=== PATIENT | female | born 1940 | race African-American/Black ===

== ENCOUNTER 2016-11-08 15:16 | Inpatient (IN) ==
[2016-11-10] MEDS ORDERED: ONDANSETRON 4 MG/2 ML VIAL IV PRN (13:14)
[2016-11-10 14:53] LABS: Basophils % 0.3 % (0.0-0.8); Eosinophils # 0.1 10*3/uL (0.0-0.87); Eosinophils % 1.2 % (0.00-10.9); Hematocrit 27.4 VOL% (35.7-47.0); Hemoglobin 8.5 GM/DL (12.0-16.0); Immature Granulocytes % 0.7 %; Immature Granulocytes Absolute 0.08 #; Lymphocytes # 1.6 10*3/uL (1.4-4.0); Lymphocytes % 14.2 % (21.3-54.2); Mean Corpuscular Hemoglobin 24 PG (27-34); Mean Corpuscular Volume 77.6 FL (87-102); Mean Platelet Volume 8.2 FL (9.6-12.0); Monocytes # 0.7 10*3/uL (0.11-0.8); Monocytes % 5.8 % (1.7-12.7); Neutrophils # 8.8 10*3/uL (1.4-7.4); Neutrophils % 77.8 % (38.7-73.9); Platelet Count 450 T/CUMM (130-400); Red Blood Count 3.53 MC/CUMM (3.8-5.5); Red Cell Distribution Width 26.5 % (9.3-17.3); White Blood Count 11.4 T/CUMM (4-12)
--- NOTE | 2016-11-10 15:12 | Hospitalist Consult Note ---
Assessment and Plan - Time spent with patient Time spent with patient: Greater than 30 minutes (1) Bilateral lower extremity edema Status: Acute Assessment and plan: Ms. Swan is 75-year-old -[place]azi female with history of hypertension and breast cancer admitted with lymphedema and cellulitis of the right upper extremity and bilateral lower extremity wounds with edema. Hospital medicine has been consulted for medical management of this patient. Labs will be ordered and drawn and recommendations to follow. We will go ahead and restart her home medicines once they are entered into the system. Dr. Luis to see and examine patient Current Visit: Yes (2) Lymphedema of right arm Status: Acute Current Visit: Yes (3) Hypertension Status: Acute Current Visit: Yes (4) Peripheral vascular disease Status: Acute Current Visit: Yes (5) Open wound of both lower extremities with complication Status: Acute Current Visit: Yes History of Present Illness - Data of Consult Patient: new to practice Consult date: 11/10/16 Requesting Physician: Wisam Jerez Primary care physician: Radu Bush - Consult Narrative Reason for consult: medical management History of present illness: Ms. Swan is a 75 year old female with history of hypertension and breast cancer status post mastectomy in [address] Jerez with bilateral lower extremity wounds and edema, and right upper extremity cellulitis and edema. Patient states she saw Dr. Jerez in clinic on Sunday and he wanted to admit her that day. She states her grandson got lost and she decided to go home and come back on Sunday. She has been treated for the past 2 years for lower extremity wounds and edema by her primary care physician Dr. Bush and home health. She went briefly to a wound nurse in [facility] that used an Unna boot that she could not tolerate. She was then sent to see Dr. Jerez for evaluation. Patient states she had a mastectomy for breast cancer on the right side in 1988 and she is always had lymphedema but it has worsened in the last 2 weeks. She states it was red and painful but that seems to have improved today. She has also had right lower extremity stents done by Dr. Horner approximately 2 years ago. She had an extended hospital stay of about 2 months at [facility]. She denies any other health history. She states she has been having difficulty walking recently due to her swelling of her legs and generalized knee pain. Patient denies headache, chest pain, shortness of breath, abdominal pain, constipation or diarrhea. Hospital medicine has been consulted for medical management of this patient. CC: Wisam Jerez MD - Home Medications and Allergies Allergies/Adverse Reactions: Allergies Allergy/AdvReac Type Severity Reaction Status Date / Time Penicillins AdvReac Intermediate RASH Verified 11/10/16 14:48 povidone-iodine AdvReac Intermediate RASH Verified 11/10/16 14:48 [From Betadine] soap [From Betadine] AdvReac Intermediate RASH Verified 11/10/16 14:48 Medical,Surgical,& Family Hx - Medical History Cardio: History of: Hypertension Musculoskeletal: History of: Musculoskeletal Problems (Bilateral knee pain) Reproductive: History of: Breast Cancer - Surgical History Reproductive Surgeries: Surgical HX of;: Breast Surgery (Right mastectomy in 1988) - Family History Family History: Reports;: Family Heart Disease - Social History Smoking Status: Never smoker Frequency of Alcohol Use: None Type of Drug Use: None Marital Status: Lives With:: Spouse Functional capacity: independent ambulation Review of systems: A complete 10 system review of systems was obtained and pertinent positives and negatives per HPI Exam - Constitutional Exam: Constitutional System: No distress. No tremulousness. Head: Normocephalic, atraumatic. Ears, Nose and Throat System: No evidence of Otitis or Mastoiditis. No epistaxis or discharge Eyes System: Pupils equal, round, and reactive. Extraocular muscles intact. Neck: Supple, without adenopathy, No jugular venous distention. No thyromegaly, neck mass, or prior surgery apparent. Respiratory System: Chest clear to auscultation. Cardiovascular System: Heart with regular rate and rhythm. No murmur. GI System: Abdomen soft, nontender. Obese, Normo active bowel sounds present. Musculoskeletal System: limbs with 4+ pitting pedal edema. No distal pulses due to edema. Patient has lymphedema of the right arm with mild cellulitis throughout patient's legs are wrapped and dressings are clean and dry Neurological System: No discernable sensory deficit. No aphasia Psychiatric System: Conversation is rational Results - Labs CBC & BMP: 11/10/16 14:41 Labs: Labs are pending Quality Measures - VTE Contraindication to Mechanical VTE Prophylaxis: Vascular Ulceration
--- NOTE | 2016-11-10 15:46 | General Surg History&Physical ---
Assessment and Plan - Time spent with patient Time spent with patient: Greater than 30 minutes (1) Cellulitis of both lower extremities Status: Acute Assessment and plan: Bilateral lower extremity cellulitis. We have emerging cultures from her initial office visit on 11/08/2016, and these will be addressed. We will also begin meticulous local wound care, and have her placed on bedrest with compression wraps, as this is likely mixed arterial and venous disease. We will watch her closely for changes as well as signs of advancing infection until the final culture results are reported. 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 She has a component of mild cellulitis, which does appear to be improved slightly from her office visit of 11/08/2016. We will plan to continue antibiotics and consult OT for this on Sunday. I hesitate to apply any type of short stretch wraps to this, as I do not believe we have OT to guide us for this nor are we able to offer her any type of MLD over the weekend. I do not want to exacerbate her problem by inappropriately applied or under utilized wraps. We will just have her elevate the extremity on a pillow until OT can evaluate. Current Visit: Yes (3) Hypertension Status: Acute Assessment and plan: Hypertension by history. Hospitalists have been consulted, and her home meds will be restarted. Will defer to any interventions they deem necessary. Current Visit: Yes (4) Peripheral vascular disease Status: Acute Assessment and plan: Lower extremity with chronic venous stasis disease and history of prior stents placed by Dr. chun atkinson on the right lower extremity. We are unclear as to whether or not this was a venous arterial problem. We may want to look at lower arterial studies, however this will be difficult to ascertain due to her chronic venous ulcerations. We will watch closely for excessive ischemic changes and see if we are able to investigate this problem further should there be a need to determine whether this is arterial versus venous. Current Visit: Yes (5) Anemia of chronic disease Status: Acute Assessment and plan: She reportedly has received transfusions recently for an H&H of 5 and 16, based on records received from her home health agency at the time of her initial office visit. This appears to be anemia of chronic disease and she is on iron replacement therapy. We will repeat labs and obtain stools for occult blood. alth agency. Today her hematocrit is 27, so we will just watch her labs closely and transfuse as necessary. Current Visit: Yes History of Present Illness Chief complaint: Bilateral lower leg cellulitis, right upper extremity cellulitis/lymphangit History of present illness: Ms. Swan is a 75 year old female Home Medications Medication Instructions Recorded Confirmed Type Clindamycin Cap [Cleocin Cap] 300 mg PO QID 11/10/16 11/10/16 History Furosemide Tab [Lasix Tab] 40 mg PO DAILY 11/10/16 11/10/16 History HYDROcodone/ACETAMIN 10-325 [[place] 1 tablet PO BID PRN 11/10/16 11/10/16 History 10-325] Iron,Carbonyl/Ascorbic Acid 1 tablet PO DAILY 11/10/16 11/10/16 History [Icar-C Tablet] Meloxicam [Mobic] 15 mg PO DAILY 11/10/16 11/10/16 History Metoprolol Tartrate [Metoprolol 50 mg PO BID 11/10/16 11/10/16 History Tartrate] Potassium Chloride [Klor-Con M20] 20 meq PO DAILY 11/10/16 11/10/16 History Allergies Allergy/AdvReac Type Severity Reaction Status Date / Time Penicillins AdvReac Intermediate RASH Verified 11/10/16 14:48 povidone-iodine AdvReac Intermediate RASH Verified 11/10/16 14:48 [From Betadine] soap [From Betadine] AdvReac Intermediate RASH Verified 11/10/16 14:48 Medical,Surgical,& Family Hx - Medical History Cardio: History of: Hypertension Musculoskeletal: History of: Musculoskeletal Problems (Bilateral knee pain) Reproductive: History of: Breast Cancer Other: History of: Miscellaneous Medical Problems (lymphedema) - Surgical History Reproductive Surgeries: Surgical HX of;: Breast Surgery (Right mastectomy in 1988) - Family History Family History: Reports;: Family Heart Disease - Social History Smoking Status: Never smoker Frequency of Alcohol Use: None Type of Drug Use: None Exam - Constitutional Vitals: Period Temp Pulse Resp BP Sys/Castro Pulse Ox Last 24 Hr 98.2 F 73 18 118/67 99 General appearance: over weight - Head Head exam: Present: normocephalic - ENT Mouth exam: Present: normal voice, dry mucosa, other (Poor dentition). Absent: oral lesion - Neck Neck exam: Present: trachea midline. Absent: lymphadenopathy - Respiratory Respiratory exam: Present: clear to auscultation bilaterally - Cardiovascular Cardiovascular exam: Present: RRR - GI/Abdominal GI/Abdominal exam: Present: hypoactive bowel sounds, soft. Absent: distended, tenderness - Extremities Exam Extremities exam: Present: other (Right upper extremity with marked lymphedema and mild resolving erythema. No unusual induration. No focal fluctuance. It is not warm to touch on today's exam, however on Sunday it was slightly warm to touch. Bilateral lower extremities with 3+ pitting edema despite wrappings. Her legs are weeping copious amounts of yellowish discharge, despite being wrapped although somewhat suboptimally. She has circumferential superficial venous stasis ulcerations of both lower extremities. These are approximately 15 cm by the entire circumference of her legs. There is erythema adjacent to these areas without any ischemic change. All the ulcers are fairly superficial , with the deepest being approximately 4-5 mm. Right leg appears to be slightly more involved than the left. Calves are soft and compressible. I see no pressure areas. ) - Neurological Exam Neurological exam: Present: alert, oriented X3 Speech: Present: normal - Constitutional Constitutional: Present: weakness, other (Edema) Quality Measures - VTE Contraindication to Mechanical VTE Prophylaxis: Vascular Ulceration Results - Labs CBC & BMP: 11/10/16 14:41 Lab Results: I have reviewed the past 24 hour labs
[2016-11-10 16:00] LABS: Osmolality,Calculated 287.3 MOS/KG (273-304); Potassium 4.4 MMOL/L (3.5-5.1)
[2016-11-10] MEDS: SODIUM CHLORIDE 0.45% 1,000 ML IV SCH (17:46)
[2016-11-10] MEDS: POTASSIUM CHLORIDE 20 MEQ TABLET PO SCH (17:47)
[2016-11-10] MEDS: FUROSEMIDE 40 MG TABLET PO SCH (17:47)
[2016-11-10] MEDS: IRON (CARBONYL)/VIT C/B12/FA TABLET PO SCH (17:47)
[2016-11-10] MEDS: CEFTAROLINE 600 MG in SODIUM CHLORIDE 0.9% 100 ML IV SCH (17:47)
[2016-11-10] MEDS: MELOXICAM 7.5 MG TABLET PO SCH (17:47)
[2016-11-10] MEDS: METOPROLOL TARTRATE 50 MG TABLET PO SCH (20:51)
[2016-11-10] MEDS: ACETAMINOPHEN 325 MG TABLET PO PRN (21:12)
[2016-11-11] MEDS: CEFTAROLINE 600 MG in SODIUM CHLORIDE 0.9% 100 ML IV SCH ×2 (03:22→14:55)
[2016-11-11 05:35] LABS: % Iron Saturation 11.9 % (18-50)
[2016-11-11 05:44] LABS: Folate 2.9 NG/ML (5.4-24.0)
[2016-11-11] MEDS: POTASSIUM CHLORIDE 20 MEQ TABLET PO SCH (09:50)
[2016-11-11] MEDS: PANTOPRAZOLE 40 MG TABLET PO SCH (09:50)
[2016-11-11] MEDS: MELOXICAM 7.5 MG TABLET PO SCH (09:50)
[2016-11-11] MEDS: IRON (CARBONYL)/VIT C/B12/FA TABLET PO SCH (09:50)
[2016-11-11] MEDS: METOPROLOL TARTRATE 50 MG TABLET PO SCH ×2 (09:50→22:00)
[2016-11-11] MEDS: SODIUM CHLORIDE 0.45% 1,000 ML IV SCH ×2 (09:51→19:10)
[2016-11-11] MEDS: FUROSEMIDE 40 MG TABLET PO SCH (09:51)
[2016-11-11] MEDS ORDERED: IRON DEXTRAN 25 MG in SYRINGE 1 EACH IV ONE (10:06)
--- NOTE | 2016-11-11 10:10 | Hospitalist Progress Note ---
Assessment and Plan (1) Iron deficiency anemia Status: Acute Assessment and plan: The patient will have IV iron infusion. Will recheck CBC in several days. Current Visit: Yes Qualifiers: Iron deficiency anemia type: chronic blood loss Qualified Code(s): D50.0 - Iron deficiency anemia secondary to blood loss (chronic) (2) Lymphedema of right arm Status: Acute Current Visit: Yes (3) Open wound of both lower extremities with complication Status: Acute Current Visit: Yes Hospitalist: Subjective Interval history: The patient is resting quietly in bed. She is receiving IV antibiotic for cellulitis of the lower extremities and the extremities are receiving topical wound care. The patient is found to be iron deficient and anemic. Exam - Constitutional Vitals: Period Temp Pulse Resp BP Sys/Castro Pulse Ox Last 24 Hr 97.5 F-98.3 F 73-83 18-20 97-143/59-81 96-99 General appearance: no acute distress - Respiratory Respiratory exam: Present: clear to auscultation bilaterally - Cardiovascular Cardiovascular exam: Present: regular rate and rhythm - GI/Abdominal GI/Abdominal exam: Present: normal bowel sounds Results - Labs CBC & BMP: 11/10/16 14:41 11/10/16 13:19 Quality Measures - VTE Contraindication to Mechanical VTE Prophylaxis: Vascular Ulceration
--- NOTE | 2016-11-11 11:12 | General Surgery Progress Note ---
Assessment and Plan (1) Bilateral lower extremity edema Status: Acute Assessment and plan: Patient has cellulitis of both lower extremities that she was admitted for antibiotics. We will continue this treatment. I will look at her wounds tomorrow myself but today she was about to use the restroom we will does have the nurses change these after she gets back in bed. Current Visit: Yes Subjective Patient reports: Present: no new complaints, feels better, still having pain, tolerating a regular diet, afebrile Exam - Constitutional Vitals: Period Temp Pulse Resp BP Sys/Castro Pulse Ox Last 24 Hr 97.5 F-98.3 F 73-83 18-20 97-143/59-81 96-99 General appearance: no acute distress, over weight - Head Head exam: Present: normal inspection, normocephalic - Eye Eye exam: Present: EOMI Pupils: Present: GEOVANNI - ENT ENT exam: Present: normal exam Mouth exam: Present: normal external inspection, normal voice - Neck Neck exam: Present: normal inspection, trachea midline - Respiratory Respiratory exam: Present: clear to auscultation bilaterally. Absent: accessory muscle use, chest wall tenderness - Cardiovascular Cardiovascular exam: Present: RRR. Absent: systolic murmur, tachycardia - GI/Abdominal GI/Abdominal exam: Present: soft. Absent: tenderness, rebound - Extremities Exam Extremities exam: Present: other (Bilateral lower extremity dressings are in place. Patient was about to get up to the restroom and request that I do not changes these myself today. She will have it done later by nursing.) - Back Exam Back exam: Present: normal inspection - Neurological Exam Neurological exam: Present: alert, oriented X3 Speech: Present: normal - Skin Skin exam: Present: normal color, warm Results - Labs CBC & BMP: 11/10/16 14:41 11/10/16 13:19 Quality Measures - VTE Contraindication to Mechanical VTE Prophylaxis: Vascular Ulceration
[2016-11-11] MEDS ORDERED: SODIUM CHLORIDE 0.9% IV ONE (13:00)
[2016-11-11] MEDS ORDERED: IRON DEXTRAN IV ONE (13:00)
[2016-11-11] MEDS ORDERED: IRON DEXTRAN 1,500 MG in SODIUM CHLORIDE 0.9% 500 ML IV ONE (14:00)
[2016-11-11] MEDS: ACETAMINOPHEN 325 MG TABLET PO PRN (15:41)
[2016-11-12] MEDS: CEFTAROLINE 600 MG in SODIUM CHLORIDE 0.9% 100 ML IV SCH ×2 (03:15→16:44)
--- NOTE | 2016-11-12 09:02 | Event Note ---
No changes today. Patient is stable. Patient refused to allow me to look at her wounds until she had all the supplies she needs to readdress them and this was done while I was in surgery. Continue current care.
[2016-11-12] MEDS: MELOXICAM 7.5 MG TABLET PO SCH (09:37)
[2016-11-12] MEDS: FUROSEMIDE 40 MG TABLET PO SCH (09:38)
[2016-11-12] MEDS: POTASSIUM CHLORIDE 20 MEQ TABLET PO SCH (09:38)
[2016-11-12] MEDS: IRON (CARBONYL)/VIT C/B12/FA TABLET PO SCH (09:38)
[2016-11-12] MEDS: METOPROLOL TARTRATE 50 MG TABLET PO SCH ×2 (09:38→21:12)
[2016-11-12] MEDS: PANTOPRAZOLE 40 MG TABLET PO SCH (10:45)
--- NOTE | 2016-11-12 13:06 | Hospitalist Progress Note ---
Assessment and Plan (1) Iron deficiency anemia Status: Acute Assessment and plan: The patient had iron dextrose infusion yesterday and should see some improvement in her anemia in the next few days. No complications were identified. The patient will continue present care. Current Visit: Yes Qualifiers: Iron deficiency anemia type: chronic blood loss Qualified Code(s): D50.0 - Iron deficiency anemia secondary to blood loss (chronic) (2) Lymphedema of right arm Status: Acute Current Visit: Yes (3) Open wound of both lower extremities with complication Status: Acute Current Visit: Yes Hospitalist: Subjective Interval history: The patient continues with local wound care. The patient received IV iron infusion yesterday. The patient has no new complaints today. She denies shortness of breath, palpitations, or angina. Exam - Constitutional Vitals: Period Temp Pulse Resp BP Sys/Castro Pulse Ox Last 24 Hr 97.6 F-99.1 F 20-68 16-20 107-143/53-81 95-100 General appearance: no acute distress - Respiratory Respiratory exam: Present: clear to auscultation bilaterally - Cardiovascular Cardiovascular exam: Present: regular rate and rhythm - GI/Abdominal GI/Abdominal exam: Present: normal bowel sounds Results - Labs CBC & BMP: 11/10/16 14:41 11/10/16 13:19 Lab Results: I have reviewed the past 24 hour labs Quality Measures - VTE Contraindication to Mechanical VTE Prophylaxis: Vascular Ulceration
[2016-11-12] MEDS: SODIUM CHLORIDE 0.45% 1,000 ML IV SCH (13:52)
[2016-11-12] MEDS: HYDROmorphone 2 MG/1 ML VIAL IV PRN (16:43)
[2016-11-13] MEDS: CEFTAROLINE 600 MG in SODIUM CHLORIDE 0.9% 100 ML IV SCH ×2 (02:50→14:04)
[2016-11-13] MEDS: SODIUM CHLORIDE 0.45% 1,000 ML IV SCH ×2 (02:51→16:21)
[2016-11-13 03:27] LABS: Basophils % 0.2 % (0.0-0.8); Eosinophils # 0.2 10*3/uL (0.0-0.87); Eosinophils % 1.6 % (0.00-10.9); Hematocrit 24.9 VOL% (35.7-47.0); Hemoglobin 7.5 GM/DL (12.0-16.0); Immature Granulocytes % 0.5 %; Immature Granulocytes Absolute 0.05 #; Lymphocytes # 1.3 10*3/uL (1.4-4.0); Lymphocytes % 13.8 % (21.3-54.2); Mean Corpuscular HGB Conc 30.1 GM/DL (32-36); Mean Corpuscular Hemoglobin 24 PG (27-34); Mean Corpuscular Volume 80.8 FL (87-102); Mean Platelet Volume 8.6 FL (9.6-12.0); Monocytes # 0.8 10*3/uL (0.11-0.8); Monocytes % 7.9 % (1.7-12.7); Neutrophils # 7.3 10*3/uL (1.4-7.4); Platelet Count 389 T/CUMM (130-400); Red Blood Count 3.08 MC/CUMM (3.8-5.5); Red Cell Distribution Width 26.7 % (9.3-17.3); White Blood Count 9.6 T/CUMM (4-12)
[2016-11-13 03:28] LABS: PT Patient Result 10.7 SECS; Partial Thromboplastin Time 35.7 SECS (0-40)
[2016-11-13 03:30] LABS: Albumin 1.8 G/DL (3.4-5.0); Bilirubin,Total 0.5 MG/DL (0.2-1.0); Calcium 7.8 MG/DL (8.5-10.1); Osmolality,Calculated 280.4 MOS/KG (273-304); Potassium 4.9 MMOL/L (3.5-5.1); Total Protein 4.9 G/DL (6.4-8.3)
[2016-11-13 04:42] LABS: Lymphocytes 23 % (20-55); Myelocytes 1 %; Segmented Neutrophils 73 % (50-85); Total Cells Counted 100
[2016-11-13 04:43] LABS: Microcytosis 1+; Platelet Estimate Normal
[2016-11-13] MEDS: IRON (CARBONYL)/VIT C/B12/FA TABLET PO SCH (08:12)
[2016-11-13] MEDS: FUROSEMIDE 40 MG TABLET PO SCH ×2 (08:13→08:15)
[2016-11-13] MEDS: MELOXICAM 7.5 MG TABLET PO SCH (08:13)
[2016-11-13] MEDS: METOPROLOL TARTRATE 50 MG TABLET PO SCH ×2 (08:13→21:32)
[2016-11-13] MEDS: PANTOPRAZOLE 40 MG TABLET PO SCH (08:13)
[2016-11-13] MEDS: POTASSIUM CHLORIDE 20 MEQ TABLET PO SCH (08:13)
--- NOTE | 2016-11-13 10:32 | Hospitalist Progress Note ---
Assessment and Plan (1) Open wound of both lower extremities with complication Status: Acute Assessment and plan: Patient with bilateral open wound with underlying colonic edema of her lower extremities may be venous stasis. She is on antibiotic and has been afebrile no leukocytosis now white count improved from 11.4-9.6 today. Will defer the management to Dr. Jerez for the wound. Dressing change is planned today and will be seen by Dr. Jerez. Current Visit: Yes (2) Bilateral lower extremity edema Status: Chronic Assessment and plan: Chronic bilateral lower extremity edema reported she also has associated hypoalbuminemia I will check urine analysis. Also obtain echocardiogram Current Visit: Yes (3) Iron deficiency anemia Status: Acute Assessment and plan: Her hemoglobin hematocrit is worse today also noted folic acid deficiency patient is on iron and folic acid supplement. Will monitor hemoglobin hematocrit closely check a stool Hemoccult Current Visit: Yes (4) ALMA (acute kidney injury) Status: Acute Assessment and plan: Improvement in renal function noted Current Visit: Yes Hospitalist: Subjective Interval history: Ms. Swan is a 75 year old female with history of hypertension, anemia , peripheral vascular disease and breast cancer status post mastectomy in 1988 and chronic swelling of the right upper limb. She was admitted on 11/10/[address] Gatica for bilateral lower extremities wound and edema. She has edema in lower extremities for about 2 years. She has a drainage for a father both legs from the ulcers. Her legs are dressed at present. She also has a right upper extremity edema which has been worsening recently. She has been on antibiotics she has been afebrile. Her wound culture has reported gram-negative rods. We were consulted for medical management Exam - Constitutional Vitals: Period Temp Pulse Resp BP Sys/Castro Pulse Ox Last 24 Hr 97.4 F-99.0 F 57-72 16-18 115-132/58-73 96-99 General appearance: no acute distress - Respiratory Respiratory exam: Present: clear to auscultation bilaterally. Absent: rales, rhonchi - Cardiovascular Cardiovascular exam: Present: regular rate and rhythm. Absent: tachycardia - GI/Abdominal GI/Abdominal exam: Present: normal bowel sounds, soft. Absent: distended, tenderness - Extremities Exam Extremities exam: Present: edema (Bilateral lower extremities edema with weeping wound from dressing. Also has right upper extremities edema but no wound) Results - Labs CBC & BMP: 11/13/16 02:27 11/13/16 02:27 Lab Results: I have reviewed the past 24 hour labs Quality Measures - VTE Contraindication to Mechanical VTE Prophylaxis: Vascular Ulceration
--- NOTE | 2016-11-13 11:10 | General Surgery Progress Note ---
Assessment and Plan - Time spent with patient Time spent with patient: Greater than 30 minutes (1) Cellulitis of both lower extremities Status: Acute Assessment and plan: Bilateral lower extremity cellulitis. We have emerging cultures from her initial office visit on 11/08/2016, and these will be addressed. We will also begin meticulous local wound care, and have her placed on bedrest with compression wraps, as this is likely mixed arterial and venous disease. We will watch her closely for changes as well as signs of advancing infection until the final culture results are reported. 11/13/2016. Bilateral lower extremity cellulitis with superimposed chronic venous stasis ulcers. We have gram-negative organisms emerging on her most recent cultures. The patient is on Teflaro, and topical Silvadene. We are also using a wound care product with silver, which should also help us combat gram-negative organisms. She previously cultured pseudomonas and Serratia. The wounds are clinically improving, so we will continue this protocol until final culture results are available. 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 She has a component of mild cellulitis, which does appear to be improved slightly from her office visit of 11/08/2016. We will plan to continue antibiotics and consult OT for this on Sunday. I hesitate to apply any type of short stretch wraps to this, as I do not believe we have OT to guide us for this nor are we able to offer her any type of MLD over the weekend. I do not want to exacerbate her problem by inappropriately applied or under utilized wraps. We will just have her elevate the extremity on a pillow until OT can evaluate. 11/13/2016. Improving mild cellulitis of the right upper extremity in a patient with known postmastectomy lymphedema. Since this seems to be improving and she has historically worn a lymphedema sleeve, I will go ahead and ask OT to visit with her and see what their recommendations are. It does not sound like from her history she has ever received any type of MLD, so will see if they feel she is a candidate for this. Current Visit: Yes (3) Hypertension Status: Acute Assessment and plan: Hypertension by history. Hospitalists have been consulted, and her home meds will be restarted. Will defer to any interventions they deem necessary. Current Visit: Yes (4) Peripheral vascular disease Status: Acute Assessment and plan: Lower extremity with chronic venous stasis disease and history of prior stents placed by Dr. chun atkinson on the right lower extremity. We are unclear as to whether or not this was a venous arterial problem. We may want to look at lower arterial studies, however this will be difficult to ascertain due to her chronic venous ulcerations. We will watch closely for excessive ischemic changes and see if we are able to investigate this problem further should there be a need to determine whether this is arterial versus venous. 11/13/2016. No signs of any type of arterial compromise or ischemic progression. These wounds seem to be primarily stasis, so at this time will defer any type of arterial workup unless we see signs of ischemia. It would be nice to know the status of her stents, so will ask if we can get records from [facility] to try to ascertain what type of vascular stents were placed. Current Visit: Yes (5) Anemia of chronic disease Status: Acute Assessment and plan: She reportedly has received transfusions recently for an H&H of 5 and 16, based on records received from her home health agency at the time of her initial office visit. This appears to be anemia of chronic disease and she is on iron replacement therapy. We will repeat labs and obtain stools for occult blood. alth agency. Today her hematocrit is 27, so we will just watch her labs closely and transfuse as necessary. 11/13/2016. Anemia is stable. Hospital has been managing, and her iron has been restarted. Of note her stools have not been collected nor has she had a bowel movement since admission. We will go ahead and try to stimulate her bowels, and she may need to be considered for colonoscopy, given her history of breast cancer, although I suspect that she simply has sluggish bowels due to her iron replacement therapy. Current Visit: Yes Subjective Patient reports: Present: feels better, pain is less, tolerating a regular diet , other (Tolerating her dressing changes with less discomfort.) Exam - Constitutional Vitals: Period Temp Pulse Resp BP Sys/Castro Pulse Ox Last 24 Hr 97.4 F-99.0 F 57-72 16-18 115-132/58-73 96-99 General appearance: no acute distress, over weight - Respiratory Respiratory exam: Present: clear to auscultation bilaterally - GI/Abdominal GI/Abdominal exam: Present: hypoactive bowel sounds, soft, other (No bowel movement since admission.) - Anus/Rectum Anus/Rectum: other (Since she has had no bowel movement since admission, we have yet to collect her stools for occult blood. Her rectal exam was deferred at this point.) - Extremities Exam Extremities exam: Present: other (Bilateral lower extremities with much less edema. Her wounds look much less viable, and the drainage is far decreased from her initial exam on admission. There is no slough, no necrotic tissue, and there is increased epithelial islands with skin bridging present over both wounds, left more improved than right. There is no gross signs of clinical advancing cellulitis in either leg. Her calves are soft and compressible, nontender to touch, and there is no tenderness of the calves with palpation. She does have moderate knee joint tenderness bilaterally but no effusions noted. Right upper extremity with resolving erythema, and less pitting of the hand and forearm. This is consistent with her resolving lymphedema/cellulitis change of the right upper extremity in this patient with known postmastectomy lymphedema) Results - Labs CBC & BMP: 11/13/16 02:27 11/13/16 02:27 Lab Results: I have reviewed the past 24 hour labs (Labs noted; her hematocrit is borderline at 24.9 volumes percent. Hospitalist is following for us.) Quality Measures - VTE Contraindication to Mechanical VTE Prophylaxis: Vascular Ulceration
[2016-11-13] MEDS: ACETAMINOPHEN 325 MG TABLET PO PRN (14:06)
--- NOTE | 2016-11-13 19:16 | ECHO Report ---
Jennifer Swan Exam Date: 11/13/2016 14:44 Referring Physician: Technologist: Ashly Lantigua RDCS Age: 75 Ht (in): 67 Wt (lb): 208 Gender: F Exam Location: [facility] Echo Indications: Essential (primary) hypertension, Peripheral vascular disease, unspecified, Bilat. open wound lower ext, Bilat. lower ext edema, iron deficient anemia, breast cancer BP: 109 / 52 HR: 70 Rhythm: Sinus Technical Quality: Fair IMPRESSIONS Normal LV systolic and diastolic function, ejection fraction 60%. Biatrial enlargement. Trace aortic regurgitation. Mild pulmonary regurgitation. Mild to moderate tricuspid regurgitation. Pulmonary hypertension with pulmonary artery pressure estimated at 65 mmHg. MEASUREMENTS (Male / Female) Normal Values 2D ECHO LV Diastolic Diameter PLAX 5.0 cm 4.2 - 5.9 / 3.9 - 5.3 cm LV Systolic Diameter PLAX 3.2 cm LV Fractional Shortening PLAX 36.5 % IVS Diastolic Thickness 0.8 cm 0.6 - 1.0 / 0.6 - 0.9 cm LVPW Diastolic Thickness 0.8 cm 0.6 - 1.0 / 0.6 - 0.9 cm DOPPLER TR Peak Velocity 370.0 cm/s TR Peak Gradient 54.8 mmHg FINDINGS Left Ventricle Normal left ventricular cavity size. Normal left ventricular cavity size. Left ventricular ejection fraction is estimated at 60 %. Right Ventricle The right ventricle is normal in size and function. Right Atrium Grossly mildly increased right atrial size. Left Atrium Grossly moderately increased left atrial size. Mitral Valve Thickened mitral valve. Trace mitral valve regurgitation. Aortic Valve Aortic valve sclerosis without stenosis. Trace aortic valve regurgitation. Tricuspid Valve Morphologically normal tricuspid valve. Moderate tricuspid valve regurgitation. Tricuspid regurgitation velocities suggest a PAP of 65 mmHg. Pulmonic Valve Morphologically normal pulmonic valve. Mild pulmonary valve regurgitation. Pericardium Normal pericardium without effusion. Aorta Normal ascending aorta dimension. Mayra Sotomayor MD (Electronically Signed) Final Date: 13 Nov 2016 19:15
[2016-11-13] MEDS: DOCUSATE SODIUM 100 MG CAPSULE PO SCH (21:32)
[2016-11-14] MEDS: CEFTAROLINE 600 MG in SODIUM CHLORIDE 0.9% 100 ML IV SCH ×2 (02:08→14:12)
[2016-11-14 04:44] LABS: Basophils % 0.4 % (0.0-0.8); Eosinophils # 0.2 10*3/uL (0.0-0.87); Hematocrit 26.3 VOL% (35.7-47.0); Hemoglobin 7.7 GM/DL (12.0-16.0); Immature Granulocytes % 0.5 %; Immature Granulocytes Absolute 0.03 #; Lymphocytes # 1.4 10*3/uL (1.4-4.0); Lymphocytes % 24.2 % (21.3-54.2); Mean Corpuscular HGB Conc 29.3 GM/DL (32-36); Mean Corpuscular Hemoglobin 25 PG (27-34); Mean Corpuscular Volume 83.8 FL (87-102); Mean Platelet Volume 8.8 FL (9.6-12.0); Monocytes # 0.7 10*3/uL (0.11-0.8); Monocytes % 12.6 % (1.7-12.7); Neutrophils # 3.4 10*3/uL (1.4-7.4); Neutrophils % 59.3 % (38.7-73.9); Platelet Count 390 T/CUMM (130-400); Red Blood Count 3.14 MC/CUMM (3.8-5.5); Red Cell Distribution Width 27.3 % (9.3-17.3); White Blood Count 5.7 T/CUMM (4-12)
[2016-11-14 05:20] LABS: Hypochromasia 1+; Microcytosis Slight; Ovalocytes Slight; Platelet Estimate Adequate
[2016-11-14] MEDS: SODIUM CHLORIDE 0.45% 1,000 ML IV SCH (07:36)
[2016-11-14] MEDS: MELOXICAM 7.5 MG TABLET PO SCH (08:20)
[2016-11-14] MEDS: IRON (CARBONYL)/VIT C/B12/FA TABLET PO SCH (08:20)
[2016-11-14] MEDS: PANTOPRAZOLE 40 MG TABLET PO SCH (08:20)
[2016-11-14] MEDS: POTASSIUM CHLORIDE 20 MEQ TABLET PO SCH (08:21)
[2016-11-14] MEDS: FUROSEMIDE 40 MG TABLET PO SCH (08:21)
[2016-11-14] MEDS: METOPROLOL TARTRATE 50 MG TABLET PO SCH ×2 (08:21→20:29)
--- NOTE | 2016-11-14 12:53 | Hospitalist Progress Note ---
Assessment and Plan (1) Open wound of both lower extremities with complication Status: Acute Assessment and plan: Patient with bilateral open wound with underlying chronic c edema of her lower extremities may be venous stasis. She is on antibiotic and has been afebrile. WBC count improving. Will defer the management to Dr. Jerez for the wound. Dressing change is planned today and will be seen by Dr. Jerez. Current Visit: Yes (2) Bilateral lower extremity edema Status: Chronic Assessment and plan: Chronic bilateral lower extremity edema reported she also has associated hypoalbuminemia . I had ordered a urine analysis but it was not done yet I will order it again. And get urine protein and creatinine ratio. LFT in the morning to follow-up on liver function tests as well as albumin level. Echocardiogram did shows elevated pulmonary artery pressure. This could have been contributing to both bilateral lower extremities edema Current Visit: Yes (3) Pulmonary hypertension Status: Acute Assessment and plan: Pulmonary hypertension on echocardiogram. Although patient has high BMI and at risk for obstructive sleep apnea. I did screening questions and were negative for sleep apnea symptoms. She may still need sleep studies as outpatient consult card to assist with management Current Visit: Yes (4) Iron deficiency anemia Status: Acute Assessment and plan: We will keep monitoring repeat labs for tomorrow ordered Current Visit: Yes (5) ALMA (acute kidney injury) Status: Acute Assessment and plan: Improvement in renal function noted based on the studies from yesterday. Repeat labs ordered for tomorrow morning Current Visit: Yes Hospitalist: Subjective Interval history: Ms. Swan is a 75 year old female with history of hypertension, anemia , peripheral vascular disease and breast cancer status post mastectomy in 1988 and chronic swelling of the right upper limb. She was admitted on 11/10/[address] Jerez for bilateral lower extremities wound and edema. She has edema in lower extremities for about 2 years. She has a drainage for a father both legs from the ulcers. She also has a right upper extremity edema which has been worsening recently. She has been on antibiotics she has been afebrile. Her wound culture has reported gram-negative rods. We were consulted for medical management. Wound dressing was changed yesterday and and reported improvement from the past Exam - Constitutional Vitals: Period Temp Pulse Resp BP Sys/Castro Pulse Ox Last 24 Hr 97.1 F-99.4 F 63-75 18-18 103-131/47-60 95-100 General appearance: no acute distress. Alert and oriented - Respiratory Respiratory exam: Present: clear to auscultation bilaterally. Absent: rales, rhonchi - Cardiovascular Cardiovascular exam: Present: regular rate and rhythm. Absent: tachycardia - GI/Abdominal GI/Abdominal exam: Present: normal bowel sounds, soft. Absent: distended, tenderness - Extremities Exam Extremities exam: Present: edema (Bilateral lower extremities edema with weeping wound from dressing. Also has right upper extremities edema but no wound I was able to see the wound when the dressing was changed yesterday and seem to have some healing with granulation tissue. ) Results - Labs CBC & BMP: 11/14/16 04:03 11/13/16 02:27 Lab Results: I have reviewed the past 24 hour labs Quality Measures - VTE Contraindication to Mechanical VTE Prophylaxis: Vascular Ulceration
--- NOTE | 2016-11-14 13:17 | General Surgery Progress Note ---
Assessment and Plan (1) Cellulitis of both lower extremities Status: Acute Assessment and plan: Bilateral lower extremity cellulitis. We have emerging cultures from her initial office visit on 11/08/2016, and these will be addressed. We will also begin meticulous local wound care, and have her placed on bedrest with compression wraps, as this is likely mixed arterial and venous disease. We will watch her closely for changes as well as signs of advancing infection until the final culture results are reported. 11/13/2016. Bilateral lower extremity cellulitis with superimposed chronic venous stasis ulcers. We have gram-negative organisms emerging on her most recent cultures. The patient is on Teflaro, and topical Silvadene. We are also using a wound care product with silver, which should also help us combat gram-negative organisms. She previously cultured pseudomonas and Serratia. The wounds are clinically improving, so we will continue this protocol until final culture results are available. 11/14/16. Lower extremity wounds continue to improve. We are now looking at how we can manage her lower extremity wounds as outpatient, as she definitely will need support and daily dressing changes for the next month. 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 She has a component of mild cellulitis, which does appear to be improved slightly from her office visit of 11/08/2016. We will plan to continue antibiotics and consult OT for this on Sunday. I hesitate to apply any type of short stretch wraps to this, as I do not believe we have OT to guide us for this nor are we able to offer her any type of MLD over the weekend. I do not want to exacerbate her problem by inappropriately applied or under utilized wraps. We will just have her elevate the extremity on a pillow until OT can evaluate. 11/13/2016. Improving mild cellulitis of the right upper extremity in a patient with known postmastectomy lymphedema. Since this seems to be improving and she has historically worn a lymphedema sleeve, I will go ahead and ask OT to visit with her and see what their recommendations are. It does not sound like from her history she has ever received any type of MLD, so will see if they feel she is a candidate for this. Current Visit: Yes (3) Hypertension Status: Acute Assessment and plan: Hypertension by history. Hospitalists have been consulted, and her home meds will be restarted. Will defer to any interventions they deem necessary. Current Visit: Yes (4) Peripheral vascular disease Status: Acute Assessment and plan: Lower extremity with chronic venous stasis disease and history of prior stents placed by Dr. chun atkinson on the right lower extremity. We are unclear as to whether or not this was a venous arterial problem. We may want to look at lower arterial studies, however this will be difficult to ascertain due to her chronic venous ulcerations. We will watch closely for excessive ischemic changes and see if we are able to investigate this problem further should there be a need to determine whether this is arterial versus venous. 11/13/2016. No signs of any type of arterial compromise or ischemic progression. These wounds seem to be primarily stasis, so at this time will defer any type of arterial workup unless we see signs of ischemia. It would be nice to know the status of her stents, so will ask if we can get records from [facility] to try to ascertain what type of vascular stents were placed. Current Visit: Yes (5) Anemia of chronic disease Status: Acute Assessment and plan: She reportedly has received transfusions recently for an H&H of 5 and 16, based on records received from her home health agency at the time of her initial office visit. This appears to be anemia of chronic disease and she is on iron replacement therapy. We will repeat labs and obtain stools for occult blood. alth agency. Today her hematocrit is 27, so we will just watch her labs closely and transfuse as necessary. 11/13/2016. Anemia is stable. Hospital has been managing, and her iron has been restarted. Of note her stools have not been collected nor has she had a bowel movement since admission. We will go ahead and try to stimulate her bowels, and she may need to be considered for colonoscopy, given her history of breast cancer, although I suspect that she simply has sluggish bowels due to her iron replacement therapy. Current Visit: Yes Subjective Patient reports: Present: no new complaints, pain is less, bowel movement (Says she had stool last night in the toilet but couldn't collect specimen for OCB for various reasons. She denies seeing gross blood. ) Exam - Constitutional Vitals: Period Temp Pulse Resp BP Sys/Castro Pulse Ox Last 24 Hr 97.1 F-99.4 F 63-75 18-18 103-131/47-60 95-100 General appearance: no acute distress - Respiratory Respiratory exam: Present: clear to auscultation bilaterally - Cardiovascular Cardiovascular exam: Present: RRR - GI/Abdominal GI/Abdominal exam: Present: hypoactive bowel sounds, soft - Extremities Exam Extremities exam: Present: other (Lower leg wounds essentially the same; they are definintely less inflammed and have much less edema and drainage from admission. Right upper extremity has no erythema and no tenderness. ) Results - Labs CBC & BMP: 11/14/16 04:03 11/13/16 02:27 Lab Results: I have reviewed the past 24 hour labs (Hct stable at 26) Quality Measures - VTE Contraindication to Mechanical VTE Prophylaxis: Vascular Ulceration
[2016-11-14 15:30] LABS: Apearance,Urine Slightly Hazy (Clear); Bacteria,Urine Occasional /HPF (Few); Bilirubin,Urine Negative (Negative); Blood, Urine Negative (Negative); Glucose,Urine (UA) Negative (Negative); Hyaline Casts,Urine 3 /LPF (0-3); Ketones,Urine Negative (Negative); Mucus,Urine Occasional /LPF (Occasional); Nitrite,Urine Negative (Negative); Protein,Urine Negative; Squamous Epithelial Cell,Urine Occasional /HPF (0-10); Urine Color Yellow (Yellow); Urine Specific Gravity 1.018 (1.001-1.035); Urine Urobilinogen < 2.0 EU/DL (0.2-1.0); WBC,Urine 1 /HPF (0-6)
[2016-11-14] MEDS: DOCUSATE SODIUM 100 MG CAPSULE PO SCH (20:28)
--- NOTE | 2016-11-14 21:58 | Cardiology Consult Note ---
I, Devi Arvizu RN, am scribing for, and in the presence of, Mayra Sotomayor MD 21:56. Assessment and Plan - Time spent with patient Time spent with patient: Greater than 30 minutes (Due to assessment, planning, documentation, medication review) (1) Pulmonary hypertension Status: Acute Assessment and plan: The chronicity of this is not known. She does not have any significant valvular heart disease seen on echocardiogram, and does not have uncontrolled hypertension. She does not appear to have a cardiac source of her pulmonary hypertension. I would recommend consulting pulmonology which I will do for further evaluation of this. Current Visit: Yes (2) Cellulitis of both lower extremities Status: Acute Current Visit: Yes (3) Lymphedema of right arm Status: Acute Current Visit: Yes History of Present Illness - Data of Consult Patient: new to practice Consult date: 11/14/16 Requesting Physician: Clark Muniz Primary care physician: Radu Bush - Consult Narrative Reason for consult: Pulmonary HTN History of present illness: Mill Order Scheduler: Dr. Sotomayor, new to cardiology Primary MD: Dr. Bush Ms. Swan is a 75 year old female who who is a poor historian and has never been seen by a special agent in charge. She has a history of hypertension, breast cancer, and lymphedema. Surgical history includes right mastectomy in 1988. Family history is positive for father with MA and mother with hypertension. She is a lifetime non-smoker. She lives at home with her who she cares for and uses a cane for assistance to get around. Ms. Swan was admitted November 10 with bilateral lower extremity wounds and edema as well as right upper extremity cellulitis and edema. She tells me she has had these issues ongoing for about 2 years but they recently got worse. Her bilateral lower extremities are dressed. Dr. Jerez is following. Echocardiogram done November 11 of this year with ejection fraction of 60% and pulmonary hypertension with pulmonary artery pressure estimated at 65 mmHg. Cardiology has been asked to evaluate. She denies any chest pain at rest or on exertion. She reports having chronic stable dyspnea on exertion as well as two- pillow orthopnea which has also been chronic for her, denies any shortness of breath at rest. She does not experience any exertional chest discomfort and has not had a recent change in her exercise tolerance. She denies any history of asthma or COPD, no known pulmonary disease and did not receive any chest radiation with her breast cancer treatment. She does not have any symptoms of snoring, daytime somnolence and breath holding at night. She denies having any palpitations or dizziness. She does tell me that she has been weak and fatigued for a while now. She does not think she has ever had an echocardiogram previously. She routinely takes metoprolol tartrate 50 mg p.o. twice daily at home, she tells me she takes for her blood pressure. We will get an EKG. We will order venous ultrasound of bilateral lower extremities and right upper extremity because of edema and recent diagnosis of pulmonary hypertension. CC: Wisam Jerez MD - Home Medications and Allergies Home Medications: Home Medications Medication Instructions Recorded Confirmed Type Clindamycin Cap [Cleocin Cap] 300 mg PO QID 11/10/16 11/10/16 History Furosemide Tab [Lasix Tab] 40 mg PO DAILY 11/10/16 11/10/16 History HYDROcodone/ACETAMIN 10-325 [[place] 1 tablet PO BID PRN 11/10/16 11/10/16 History 10-325] Iron,Carbonyl/Ascorbic Acid 1 tablet PO DAILY 11/10/16 11/10/16 History [Icar-C Tablet] Meloxicam [Mobic] 15 mg PO DAILY 11/10/16 11/10/16 History Metoprolol Tartrate [Metoprolol 50 mg PO BID 11/10/16 11/10/16 History Tartrate] Potassium Chloride [Klor-Con M20] 20 meq PO DAILY 11/10/16 11/10/16 History Allergies/Adverse Reactions: Allergies Allergy/AdvReac Type Severity Reaction Status Date / Time Penicillins AdvReac Intermediate RASH Verified 11/10/16 14:48 povidone-iodine AdvReac Intermediate RASH Verified 11/10/16 14:48 [From Betadine] soap [From Betadine] AdvReac Intermediate RASH Verified 11/10/16 14:48 - Constitutional Constitutional: Present: as per HPI - EENT Eyes: Present: loss of vision, requires corrective lense Ears: Absent: decreased hearing, ear pain, tinnitus Nose, mouth and throat: Present: neck pain. Absent: dysphagia, epistaxis, headache(s) - Cardiovascular Cardiovascular: Present: dyspnea on exertion, edema, orthopnea (2 pillow). Absent: chest pain at rest, chest pain with activity, diaphoresis, dyspnea, radiating jaw, neck or arm pain, lightheadedness, palpitations - Respiratory Respiratory: Present: dyspnea on exertion. Absent: cough, dyspnea, hemoptysis, wheezing - Gastrointestinal Gastrointestinal: Present: nausea, vomiting. Absent: abdominal pain, constipation, diarrhea, hematemesis, hematochezia, melena - Genitourinary Genitourinary: Absent: dysuria, hematuria - Musculoskeletal Musculoskeletal: Present: back pain, joint swelling, limited range of motion, muscle weakness - Neurological Neurological: Present: abnormal gait. Absent: frequent falls, headache(s), syncope - Psychiatric Psychiatric: Absent: anxiety, confusion - Endocrine Endocrine: Present: fatigue. Absent: cold intolerance, heat intolerance - Hematologic/Lymphatic Hematologic/Lymphatic: Present: easy bleeding, easy bruising Medical,Surgical,& Family Hx - Medical History Cardio: History of: Hypertension Musculoskeletal: History of: Musculoskeletal Problems (Bilateral knee pain) Reproductive: History of: Breast Cancer Other: History of: Miscellaneous Medical Problems (lymphedema) - Surgical History Reproductive Surgeries: Surgical HX of;: Breast Surgery (Right mastectomy in 1988) Additional Surgical History: She reports she had 3 stents placed in right leg at [facility] 2 years ago - Family History Family History: Reports;: Family Heart Disease (Father), Family Hypertension ( Mother) - Social History Smoking Status: Never smoker Have you smoked in the last 12 months: No Frequency of Alcohol Use: None Type of Drug Use: None Marital Status: Lives With:: Spouse Functional capacity: uses cane/walker Physical Examination Vital Signs Temp Pulse Resp BP Pulse Ox 98.2 F 73 18 118/67 99 11/10/16 14:30 11/10/16 14:30 11/10/16 14:30 11/10/16 14:30 11/10/16 14:30 General: Present: Appears Well, No Apparent Distress HEENT: Present: PERRL, Mucus Membranes Moist Neck: Present: Supple Neck, Midline Trachea, No Bruit Cardiac: Present: Reg Rate and Rhythm, No Murmur Lungs: Present: Normal Breath Sounds, No Wheeze, Rales, Rhonchi. Absent: Oxygen Neuro: Present: Grossly Intact. Absent: Resting Tremor, Essential Tremor Abdomen: Present: Soft, Active Bowel Sounds, Non-Tender. Absent: Distended Skin: Present: Other (Dressings to bilateral lower extremities). Absent: Clear , Rash, Suspicious Lesions Musculoskeletal: Present: Decreased Range of Motion, Pain in Joint Gait: Present: Poor Gait Extremities: Present: Normal Upper Extr. Pulses, Edema (Right upper extremity lymphedema, she reports she has a "rash" to bilateral lower extremities, lower extremities are dressed so I did not assess), +2 Edema, Other (Severe lymphedema of the right upper extremity). Absent: Normal Gait Result/EKG - Labs CBC & BMP: 11/14/16 04:03 11/13/16 02:27 Lab Results: I have reviewed the past 24 hour labs Labs: Laboratory Results - last 24 hr 11/14/16 11/14/16 04:03 Unknown WBC 5.7 D RBC 3.14 L Hgb 7.7 L Hct 26.3 L MCV 83.8 L MCH 25 L MCHC 29.3 L RDW 27.3 H Plt Count 390 MPV 8.8 L Neut % (Auto) 59.3 Lymph % (Auto) 24.2 Weld % (Auto) 12.6 Eos % (Auto) 3.0 Baso % (Auto) 0.4 Neut # (Auto) 3.4 Lymph # (Auto) 1.4 Weld # (Auto) 0.7 Eos # (Auto) 0.2 Baso # (Auto) 0.0 Immature Gran % 0.5 Nucleated RBC % 0.0 Immature Gran # 0.03 Nucleated RBCs # 0.00 Platelet Estimate Adequate Hypochromasia 1+ Microcytosis Slight Ovalocytes Slight Morphology Comment Urine Color Yellow Urine Appearance Slightly hazy Urine pH 5.0 Ur Specific [place] 1.018 Urine Protein Negative Urine Glucose (UA) Negative Urine Ketones Negative Urine Blood Negative Urine Nitrate Negative Urine Bilirubin Negative Urine Urobilinogen < 2.0 H Urine Leukocytes Negative Urine WBC 1 Ur Squamous Epith Cells Occasional Urine Bacteria Occasional Hyaline Casts 3 Urine Mucus Occasional Ur Culture Indicated? Not indicated Quality Measures - VTE Contraindication to Mechanical VTE Prophylaxis: Vascular Ulceration Bran Lujan Jennifer, MD, personally performed the services described in this documentation, ascribed by Devi Arvizu RN in my presence, and it is both accurate and complete .
--- NOTE | 2016-11-14 22:51 | Ultrasound Report ---
US venous doppler LE BI Indication: Lower extremity swelling and pain. Comparison: None. Technique: Using a transcutaneous probe, grayscale, spectral Doppler, and color Doppler images of the bilateral lower extremity venous structures were captured and stored. Grayscale images prior to and following compression were obtained. Interrogated venous structures include the bilateral common femoral vein, superficial femoral vein (proximal, mid, and distal), and popliteal vein. Findings: There is no evidence of thrombus within the interrogated venous structures. The patent interrogated venous segments demonstrate presence of both color flow and spectral flow. Impression: 1. No evidence of venous thrombosis. 11/14/2016 10:22 PM PROCEDURE INTERPRETED AT [facility] DEPARTMENT OF RADIOLOGY Final Report Signed by: Dr. John Cohn
[2016-11-15] MEDS: CEFTAROLINE 600 MG in SODIUM CHLORIDE 0.9% 100 ML IV SCH ×2 (02:06→19:13)
[2016-11-15 06:07] LABS: Basophils % 0.7 % (0.0-0.8); Eosinophils # 0.2 10*3/uL (0.0-0.87); Eosinophils % 4.3 % (0.00-10.9); Hematocrit 23.7 VOL% (35.7-47.0); Hemoglobin 7.2 GM/DL (12.0-16.0); Immature Granulocytes % 0.2 %; Immature Granulocytes Absolute 0.01 #; Lymphocytes # 1.3 10*3/uL (1.4-4.0); Lymphocytes % 29.5 % (21.3-54.2); Mean Corpuscular HGB Conc 30.4 GM/DL (32-36); Mean Corpuscular Hemoglobin 24 PG (27-34); Mean Corpuscular Volume 80.1 FL (87-102); Mean Platelet Volume 8.3 FL (9.6-12.0); Monocytes # 0.6 10*3/uL (0.11-0.8); Monocytes % 14.2 % (1.7-12.7); Neutrophils # 2.3 10*3/uL (1.4-7.4); Neutrophils % 51.1 % (38.7-73.9); Platelet Count 346 T/CUMM (130-400); Red Blood Count 2.96 MC/CUMM (3.8-5.5); Red Cell Distribution Width 27.2 % (9.3-17.3); White Blood Count 4.4 T/CUMM (4-12)
[2016-11-15 06:30] LABS: Eosinophils 3 % (0-10); Hypochromasia 1+; Lymphocytes 33 % (20-55); Microcytosis 1+; Segmented Neutrophils 54 % (50-85); Total Cells Counted 100
[2016-11-15 06:31] LABS: Platelet Estimate Normal
--- NOTE | 2016-11-15 06:35 | XRay Report ---
Exam: Chest 2 views Date: November 14, 2016 Comparison: None Reason: Shortness of breath, pulmonary hypertension Findings: The cardiac silhouette is mildly enlarged, and the thoracic aorta is tortuous. The patient's arms partially obscure the chest on the lateral view. There is minimal density at the right lung base on the PA view. This could represent artifact from overlapping structures, atelectasis or possibly mild pneumonia. Follow-up would be helpful. No pneumothorax or pleural fluid is identified. There is degenerative change at the thoracic spine, but no acute osseous process is seen. Impression: 1. Mild cardiomegaly. 2. There is mild density at the right lung base. This could represent artifact, atelectasis or possibly mild pneumonia. Follow-up would be helpful to confirm resolution. PROCEDURE INTERPRETED AT [facility] DEPARTMENT OF RADIOLOGY Final Report Signed by: Dr. Jose Juan Sutherland
[2016-11-15 06:49] LABS: Albumin 1.9 G/DL (3.4-5.0); Bilirubin,Direct 0.1 MG/DL (0.0-0.20); Bilirubin,Indirect 0.4 MG/DL (0.0-1.0); Bilirubin,Total 0.5 MG/DL (0.2-1.0); Calcium 8.1 MG/DL (8.5-10.1); Osmolality,Calculated 283.1 MOS/KG (273-304); Potassium 5.3 MMOL/L (3.5-5.1); Total Protein 4.7 G/DL (6.4-8.3)
--- NOTE | 2016-11-15 08:09 | EKG Report ---
Stationary ECG Study [facility] Test Date: 11/14/2016 6:05:30 PM Pat Name: MARTIN BERNSTEIN Department: Room: 331 Gender: F Slaughterer Religious Ritual: MIRIAM : 1940 Requested by: Delaney Mcmanus Order Number: [id number] Reading MD: FRANCES LASSITER Intervals [place] Rate: 72 P: 55 NH: 164 QRS: 46 QRSD: 70 T: 48 QT: 367 QTc: 392 Interpretive Statements SINUS RHYTHM Electronically Signed On 11-15-16 21:11:55 CDT by FRANCES LASSITER [email or web address]
--- NOTE | 2016-11-15 09:58 | Pulmonology Consult Note ---
History of Present Illness Chief complaint: Pulmonary hypertension. History of present illness: Ms. Sawn is a 75 year old black female whom I been asked to see in pulmonary consultation for evaluation and treatment of pulmonary hypertension. Earlier the patient gave Dr. Mayra Sotomayor a history of orthopnea PND dyspnea on exertion. I interviewed her along with Blaze Pham nurse practitioner and the patient has complete denial of any pulmonary symptoms. She did admit she walks too far she gets short of breath. She denies any chest pain. She denies any sleep abnormalities. She was very defensive with answers all these questions so I am not 100% sure if she is telling me everything. Patient says that her feet have always been. She wears tried exercise 12 shoes. She has good bit of edema in her legs and she says her legs have always been sinus. She has massive edema in the right upper extremity and she blames this to be secondary to laying in bed. She says that she manages to keep the edema down at home. I asked her that she been up in a chair in the room and she said no. She denies any abdominal distention or feeling of fullness. She has had no change in her appetite. The remainder the review of systems is negative. Allergies. See below Home medicines see below Hospital medicines. See below. Past history. Iron deficiency. She remains low on iron she is been found to be low folic acid. High blood pressure. Degenerative joint disease. Obesity. Chronic recurrent lower extremity skin infections. History of lymphedema. Right mastectomy 1988 for breast cancer. In 2014 she had 3 stents placed in the right leg. This was done at [facility]. Family history. Father had heart disease and mother had high blood pressure. Social history. Patient denies ever having used alcohol or tobacco. She is and lives with her spouse. Echocardiogram. 11/11/2016. Left ventricular ejection fraction is 60%. Bilateral atrial enlargement. Mild pulmonary valve regurgitation. Mild to moderate tricuspid regurgitation. Pulmonary artery pressures were estimated to be 65 mmHg. The right ventricle is normal in size and function. Right atrium was mildly increased in size and the left atrium was moderately increased in size. There is a trace of mitral valve regurgitation trace of aortic valve regurgitation. Doppler venograms of the lower extremities. 11/14/2016. No evidence of deep venous thrombophlebitis Chest x-ray. My interpretation. Normal heart size. No hilar adenopathy. The origin of the right pulmonary artery appears to be enlarged but this ends suddenly. Left pulmonary artery is very prominent on the lateral film. Mediastinum is normal. Lung hutchison are clear. There is posterior eventration of the left hemidiaphragm.. Microbiology. Cultures from the right leg is growing Pseudomonas. Lab. Electrolytes are normal. Creatinine was 1.70 at admission and is now 1.60. BUN is 19. Liver function tests are normal. Protein and albumin are low at 4.71.9 respectively. Vitamin B12 level is 309 lower limits of normal is 211. Folic acid levels low at 2.9. INR is 1.0. Iron and total iron-binding capacity are both low at 20 and 168 respectively. Iron saturation is low at 11.9. H&H is 7.2/23.7 with decrease indices and a marked elevation red blood cell distribution with. Admit white count was 11,400 and is dropped to 4400. Platelets of 346,000. Lab and medicines have been reviewed. Physical exam. Vital signs. See below Psychiatric. Oriented 3. Somewhat defensive when giving history. Neurologic. Cranial nerves are intact with some mild decreased hearing acuity bilaterally long track motor functions intact. Sensory exam was not done in gait was not tested. Face. Symmetrical. Lips and tongue are normal. Neck. Kyphotic. No mass. No meningismus. Lymphatics. No submandibular cervical supraclavicular or epitrochlear adenopathy. Chest. 100% clear. No chest wall tenderness. Heart. No gallop Breasts. Deferred Abdomen obese. Nontender. Positive bowel sounds. Extremities. Right upper extremity has massive lymphedema. There is mild edema of the left upper extremity. There is at least +2-1/2 over 4 bilateral pedal and pretibial edema of the lower extremities extending up to and past the tibial plateaus bilaterally. Skin. Infections in the lower extremities which are now bandaged. Arterial. Carotid upstroke is fair. Upper extremity pulses are palpable on the left. Lower extremity pulses are nonpalpable. Venous exam. Edema left upper extremity and lymphedema in the right upper extremity. Chronic venous stasis in both lower extremities. The remainder the exam is noncontributory. Impression. 1. Pulmonary hypertension of undetermined etiology. Patient would be a good candidate for sleep apnea. No cardiac cause present. No evidence of lower extremity deep venous thrombophlebitis in the presence of chronic edema. Look for clots in the upper extremities. 2. Chronic renal failure 3. Chronic infection of the lower extremities. 4. History of breast cancer and lymphedema of the right upper extremity 5. History of high blood pressure 6. Iron deficiency and folic acid deficiency anemia 7. Right mastectomy for breast cancer 1988. 8. See past history Plan. 1. We will empirically start the patient on Norvasc 5 mg daily. 2. Get Doppler venograms to rule out deep venous thrombophlebitis in both upper extremities 3. Ventilation perfusion lung scan 4. Reticulocyte count 5. Stools for blood 3 6. See orders Home Medications Medication Instructions Recorded Confirmed Type Clindamycin Cap [Cleocin Cap] 300 mg PO QID 11/10/16 11/10/16 History Furosemide Tab [Lasix Tab] 40 mg PO DAILY 11/10/16 11/10/16 History HYDROcodone/ACETAMIN 10-325 [[place] 1 tablet PO BID PRN 11/10/16 11/10/16 History 10-325] Iron,Carbonyl/Ascorbic Acid 1 tablet PO DAILY 11/10/16 11/10/16 History [Icar-C Tablet] Meloxicam [Mobic] 15 mg PO DAILY 11/10/16 11/10/16 History Metoprolol Tartrate [Metoprolol 50 mg PO BID 11/10/16 11/10/16 History Tartrate] Potassium Chloride [Klor-Con M20] 20 meq PO DAILY 11/10/16 11/10/16 History Allergies Allergy/AdvReac Type Severity Reaction Status Date / Time Penicillins AdvReac Intermediate RASH Verified 11/10/16 14:48 povidone-iodine AdvReac Intermediate RASH Verified 11/10/16 14:48 [From Betadine] soap [From Betadine] AdvReac Intermediate RASH Verified 11/10/16 14:48 Exam (Pulmonay) H&P - Constitutional Vitals: Period Temp Pulse Resp BP Sys/Castro Pulse Ox Last 24 Hr 97.0 F-98.9 F 60-77 18-20 113-131/56-66 95-100 Medical,Surgical,& Family Hx - Medical History Cardio: History of: Hypertension Musculoskeletal: History of: Musculoskeletal Problems (Bilateral knee pain) Reproductive: History of: Breast Cancer Other: History of: Miscellaneous Medical Problems (lymphedema) - Surgical History Reproductive Surgeries: Surgical HX of;: Breast Surgery (Right mastectomy in 1988) - Family History Family History: Reports;: Family Heart Disease (Father), Family Hypertension ( Mother) - Social History Smoking Status: Never smoker Frequency of Alcohol Use: None Type of Drug Use: None Results - Labs CBC & BMP: 11/15/16 05:15 11/15/16 05:15 Quality Measures - VTE Contraindication to Mechanical VTE Prophylaxis: Vascular Ulceration
[2016-11-15] MEDS: IRON (CARBONYL)/VIT C/B12/FA TABLET PO SCH (10:15)
[2016-11-15] MEDS: FUROSEMIDE 40 MG TABLET PO SCH (10:15)
[2016-11-15] MEDS: METOPROLOL TARTRATE 50 MG TABLET PO SCH ×2 (10:16→21:35)
[2016-11-15] MEDS: PANTOPRAZOLE 40 MG TABLET PO SCH (10:16)
[2016-11-15] MEDS: amLODIPine 5 MG TABLET PO SCH (10:21)
--- NOTE | 2016-11-15 10:33 | Hospitalist Progress Note ---
Assessment and Plan (1) Open wound of both lower extremities with complication Status: Acute Assessment and plan: Patient with bilateral open wound with underlying chronic edema of her lower extremities may be venous stasis. She is on antibiotic and has been afebrile. WBC count improving. Will defer the management to Dr. Jerez for the wound. Current Visit: Yes (2) Bilateral lower extremity edema Status: Chronic Assessment and plan: Probably contributed by pulmonary hypertension and venous stasis Current Visit: Yes (3) Pulmonary hypertension Status: Acute Assessment and plan: Pulmonary hypertension on echocardiogram. Not sure of the etiology of pulmonary hypertension symptoms is not suggestive of any sleep apnea or have any valvular disease. No venous thrombembolism from lower extremities. Appreciate help from the pulmonary noted empirically started on calcium channel kenisha. Patient is on IV fluid I will stop that she has accepted p.o intake Current Visit: Yes (4) Iron deficiency anemia Status: Acute Assessment and plan: We will keep monitoring hemoglobin is trending down stool Hemoccult ordered by pulmonary. I have stopped her NSAIDs she is on Protonix she is already on iron. She only has slight oozing from the wound she has no symptoms from anemia but not ambulating much here. Keep watch and transfuse after discussion with the patient Current Visit: Yes (5) ALMA (acute kidney injury) Status: Acute Assessment and plan: Renal function overall unchanged from yesterday but patient noted to be on NSAIDs I will stop that. She has no significant proteinuria on urine studies also noted mild hyperkalemia I will have stopped potassium also Current Visit: Yes Hospitalist: Subjective Interval history: Ms. Swan is a 75 year old female with history of hypertension, anemia , peripheral vascular disease and breast cancer status post mastectomy in 1988 and chronic swelling of the right upper limb. She was admitted on 11/10/[address] Jerez for bilateral lower extremities wound and edema. She has edema in lower extremities for about 2 years. She has a drainage for a father both legs from the ulcers. She also has a right upper extremity edema which has been worsening recently. She has been on antibiotics Her wound culture has reported gram-negative rods. We were consulted for medical management. Wound dressing was changed yesterday. Patient was noted to have a pulmonary hypertension based on echo cardiology was consulted there was no associated valvular disease or symptoms suggestive of sleep apnea. Pulmonary consulted and the workup in progress No symptom overnight afebrile Exam - Constitutional Vitals: Period Temp Pulse Resp BP Sys/Castro Pulse Ox Last 24 Hr 97.0 F-98.9 F 60-77 18-20 113-131/56-66 95-100 General appearance: no acute distress. Alert and oriented - Respiratory Respiratory exam: Present: clear to auscultation bilaterally. Absent: rales, rhonchi - Cardiovascular Cardiovascular exam: Present: regular rate and rhythm. Absent: tachycardia - GI/Abdominal GI/Abdominal exam: Present: normal bowel sounds, soft. Absent: distended, tenderness - Extremities Exam Extremities exam: Present: edema (Bilateral lower extremities edema with some drainage from dressed wound . Also has right upper extremities edema but no wound Results - Labs CBC & BMP: 11/15/16 05:15 11/15/16 05:15 Lab Results: I have reviewed the past 24 hour labs Quality Measures - VTE Contraindication to Mechanical VTE Prophylaxis: Vascular Ulceration
[2016-11-15] MEDS: ACETAMINOPHEN 325 MG TABLET PO PRN (13:05)
--- NOTE | 2016-11-15 13:47 | Nuclear Medicine Report ---
History: Shortness of breath. Pulmonary hypertension Date: 11/15/2016 Study: Nuclear medicine ventilation/perfusion lung scan Comparison exam: Chest x-ray 12 hours earlier Following the inhalation of 40 mCi technetium 99m DTPA in aerosol form, images were obtained over the lungs in 6 projections for the purpose of a ventilation study. Then, following the IV administration of 5 mCi technetium 99m MAA, images were acquired of the lungs in the same projections for the purpose of a perfusion scan. There are no moderate or large unmatched segmental perfusion defects within either lung. There are some matched areas of decreased ventilation and perfusion in the lingula, right middle lobe, superior segment right lower lobe, all without matching radiographic infiltrate. Impression: The study is abnormal, but is considered low probability for pulmonary embolic disease PROCEDURE INTERPRETED AT [facility] DEPARTMENT OF RADIOLOGY Final Report Signed by: Dr. Matilda Garland
[2016-11-15] MEDS: DOCUSATE SODIUM 100 MG CAPSULE PO SCH (21:36)
[2016-11-15] MEDS: SODIUM CHLORIDE 0.45% 1,000 ML IV SCH (23:47)
[2016-11-16 01:26] LABS: Basophils % 0.4 % (0.0-0.8); Eosinophils # 0.2 10*3/uL (0.0-0.87); Eosinophils % 2.3 % (0.00-10.9); Hematocrit 27.1 VOL% (35.7-47.0); Hemoglobin 8.2 GM/DL (12.0-16.0); Immature Granulocytes % 0.3 %; Immature Granulocytes Absolute 0.02 #; Lymphocytes # 1.4 10*3/uL (1.4-4.0); Lymphocytes % 20.9 % (21.3-54.2); Mean Corpuscular HGB Conc 30.3 GM/DL (32-36); Mean Corpuscular Hemoglobin 24 PG (27-34); Mean Corpuscular Volume 80.2 FL (87-102); Mean Platelet Volume 8.6 FL (9.6-12.0); Monocytes # 0.6 10*3/uL (0.11-0.8); Monocytes % 9.3 % (1.7-12.7); Neutrophils # 4.6 10*3/uL (1.4-7.4); Neutrophils % 66.8 % (38.7-73.9); Platelet Count 466 T/CUMM (130-400); Red Blood Count 3.38 MC/CUMM (3.8-5.5); Red Cell Distribution Width 27.8 % (9.3-17.3); White Blood Count 6.9 T/CUMM (4-12)
[2016-11-16 01:49] LABS: Calcium 8.2 MG/DL (8.5-10.1); Osmolality,Calculated 284.1 MOS/KG (273-304); Potassium 4.7 MMOL/L (3.5-5.1)
[2016-11-16] MEDS: CEFTAROLINE 600 MG in SODIUM CHLORIDE 0.9% 100 ML IV SCH ×2 (01:59→15:23)
[2016-11-16 07:54] LABS: Hypochromasia 1+
[2016-11-16] MEDS: IRON (CARBONYL)/VIT C/B12/FA TABLET PO SCH (09:44)
[2016-11-16] MEDS: FUROSEMIDE 40 MG TABLET PO SCH (09:45)
[2016-11-16] MEDS: amLODIPine 5 MG TABLET PO SCH (09:47)
[2016-11-16] MEDS: PANTOPRAZOLE 40 MG TABLET PO SCH (09:47)
[2016-11-16] MEDS: METOPROLOL TARTRATE 50 MG TABLET PO SCH ×2 (09:47→21:31)
--- NOTE | 2016-11-16 12:20 | Pulmonology Progress Note ---
Pulmonary - PN: Subj Interval history: This is a 75-year-old black female whom I saw in pulmonary consultation on 2016. My impressions were. 1. Pulmonary hypertension of undetermined etiology. Patient would be a good candidate for sleep apnea. No cardiac cause present. No evidence of lower extremity deep venous thrombophlebitis in the presence of chronic edema. Look for clots in the upper extremities. 2. Chronic renal failure 3. Chronic infection of the lower extremities. 4. History of breast cancer and lymphedema of the right upper extremity 5. History of high blood pressure 6. Iron deficiency and folic acid deficiency anemia 7. Right mastectomy for breast cancer 1988. 8. See past history 11/16/2016. 11/15/2016 I ordered upper extremity Doppler venograms looking for possible clots and possible source of pulmonary hypertension. She has refused these 3 times. I have explained to her the rationale for getting these venograms and I told her I would document her decision to not have these done. Norvasc 5 mg daily to treat pulmonary hypertension was started on 11/15/2016 and so far patient tolerated this well. Electrolytes are normal. Creatinine is 1.7 with a BUN of 19. H&H is 8.2/27.1. White count 6900 with a normal differential and platelets of 466,000. Folic acid is low. Vitamin B12 is in the lower part of normal range. Iron saturation is low.. Doppler venograms of the lower extremities are negative for deep venous thrombophlebitis. Ventilation perfusion lung scan shows no evidence of pulmonary emboli. Physical exam. Vital signs see below Psychiatric. Oriented 3. Somewhat uncooperative. Face is symmetrical. Lips and tongue are normal. Neck symmetrical. Kyphotic. No meningismus. Lymphatics. No submandibular cervical supraclavicular or palpable epitrochlear adenopathy Upper extremities show lymphedema on the right and edema on the left. Lower extremities show chronic venous stasis changes. Chest. Kyphotic. Clear breath sounds Heart. No gallop Abdomen obese. Nontender. Neurologic. Cranial nerves are intact. Long track motor functions intact. Sensory exam was not done gait was not tested The remainder the physical exam is noncontributory. Plan. 1. 11/15/2016. We will empirically start the patient on Norvasc 5 mg daily. 2. Get Doppler venograms to rule out deep venous thrombophlebitis in both upper extremities. 11/15/2016. Lower extremity venograms were negative for deep venous thrombophlebitis. Patient refused upper extremity venogram 3. Ventilation perfusion lung scan. 11/15/2016. Negative for deep venous thrombophlebitis. 4. Reticulocyte count 5. Stools for blood 3 6. See orders 7. 11/16/2016. See today's note above. Exam (Progress Note) - Constitutional Vitals: Period Temp Pulse Resp BP Sys/Castro Pulse Ox Last 24 Hr 96.2 F-99.5 F 60-75 16-22 122-155/52-70 91-100 Results - Labs CBC & BMP: 11/16/16 00:49 11/16/16 00:49
--- NOTE | 2016-11-16 12:32 | Sleep Medicine Consult ---
Assessment and Plan - Time spent with patient Time spent with patient: Greater than 30 minutes (1) Unspecified sleep apnea Status: Acute Assessment and plan: Ms. Swan denies history of snoring or abnormal breathing during sleep that is often reported in sleep apnea. However, she does have daytime sleepiness and fatigue as well as sleep disruption throughout the night. She is morbidly obese with a BMI of 40.1 and has a Mallampati class IV exam. These findings along with her recent diagnosis of pulmonary hypertension due to unknown etiology warrant further workup. I discussed common sleep disorders, specifically obstructive sleep apnea as well as the testing and treatments that are recommended. She verbalized understanding and wishes to proceed with testing. An HSAT will be ordered to rule out FABIÁN. Current Visit: Yes Qualifiers: Sleep apnea type: unspecified type Qualified Code(s): G47.30 - Sleep apnea , unspecified History of Present Illness History of present illness: Ms. Swan is a 75 year old female who was admitted with bilateral wounds to her lower extremities. During routine workup she was found to have pulmonary hypertension with no findings suggestive of cardiac dysfunction. Sleep medicine has been consulted to rule out potential sleep disorder as underlying cause. She is sitting upright in bed and is pleasant. When discussing her typical sleep routine, she reports going to bed routinely around 10 PM and will awaken between 8 and 9 AM. Throughout her sleep time, she does have sleep disruption due to frequent urination, going at least 2-3 times nightly. She reports this is caused by her fluid pill. She has never been told that she snored or stopped breathing during her sleep. She denies ever awakening from sleep feeling short of breath or "gasping". She initiates sleep without difficulty but admits that her sleep is not as "good" as it once was, which she relates back to her age and her health conditions. Most mornings she awakens refreshed but does "doze" often throughout the day especially while watching television or after taking a "pain pill". Her [place] Sleepiness Score is 0. At night she sleeps with 2 pillows supporting her neck and head and 2-3 pillows for her lower legs and right arm. Since mastectomy in the she has struggled with lymphedema in her right upper arm. She denies any pain or paresthesias in this extremity. Her lower extremities are edematous and she has had a difficult time with wounds despite special attention to positioning. Over the past few months she has lost approximately 30lbs due to her lower denture plate being broken. She has an upper plate intact but states her food choices are "more limited". She is and has numerous children and grandchildren who are very supportive. Home Medications Medication Instructions Recorded Confirmed Type Clindamycin Cap [Cleocin Cap] 300 mg PO QID 11/10/16 11/10/16 History Furosemide Tab [Lasix Tab] 40 mg PO DAILY 11/10/16 11/10/16 History HYDROcodone/ACETAMIN 10-325 [[place] 1 tablet PO BID PRN 11/10/16 11/10/16 History 10-325] Iron,Carbonyl/Ascorbic Acid 1 tablet PO DAILY 11/10/16 11/10/16 History [Icar-C Tablet] Meloxicam [Mobic] 15 mg PO DAILY 11/10/16 11/10/16 History Metoprolol Tartrate [Metoprolol 50 mg PO BID 11/10/16 11/10/16 History Tartrate] Potassium Chloride [Klor-Con M20] 20 meq PO DAILY 11/10/16 11/10/16 History Allergies Allergy/AdvReac Type Severity Reaction Status Date / Time Penicillins AdvReac Intermediate RASH Verified 11/10/16 14:48 povidone-iodine AdvReac Intermediate RASH Verified 11/10/16 14:48 [From Betadine] soap [From Betadine] AdvReac Intermediate RASH Verified 11/10/16 14:48 - Constitutional Constitutional: Present: daytime sleepiness, frequent falls, weight loss. Absent: fatigue, stops breathing during sleep - EENT Nose, mouth and throat: Absent: nasal congestion - Cardiovascular Cardiovascular: Present: dyspnea on exertion, edema (lower extremities and right upper arm). Absent: palpitations - Respiratory Respiratory: Absent: cough, wheezing, snoring - Gastrointestinal Gastrointestinal: Absent: abdominal pain, heartburn - Genitourinary Genitourinary: Present: urinary frequency (2-3 times per night). Absent: difficulty urinating - Musculoskeletal Musculoskeletal: Present: arthralgias, back pain - Neurological Neurological: Present: dizziness (when standing quickly), frequent falls - Psychiatric Psychiatric: Absent: anxiety, depression, memory loss - Endocrine Endocrine: Present: heat intolerance Exam (Pulmonay) H&P - Constitutional Vitals: Period Temp Pulse Resp BP Sys/Castro Pulse Ox Last 24 Hr 96.2 F-99.5 F 59-75 16-22 109-155/52-70 91-100 General appearance: morbidly obese - Head Head exam: Present: normocephalic, atraumatic - Eye Pupils: Present: GEOVANNI - ENT ENT exam: Present: other (Mallampati class IV) - Expanded ENT Exam ENT Exam Mouth exam: Present: moist Teeth exam: Present: other (upper denture plate intact/large tongue) - Neck Neck exam: Present: other (Neck Circ. 14 3/4"). Absent: lymphadenopathy, thyromegaly - Respiratory Respiratory exam: Present: clear to auscultation bilaterally. Absent: rales, rhonchi, wheezes - Cardiovascular Cardiovascular exam: Present: regular rate and rhythm. Absent: gallop, rubs - GI/Abdominal GI/Abdominal exam: Present: normal bowel sounds, soft. Absent: tenderness - Extremities Exam Extremities exam: Present: normal capillary refill, edema (right upper extremity edema/ 2+ edema to lower extremities/ bandages intact to wounds bilaterally) Medical,Surgical,& Family Hx - Medical History Cardio: History of: Hypertension Musculoskeletal: History of: Musculoskeletal Problems (Bilateral knee pain) Reproductive: History of: Breast Cancer Other: History of: Miscellaneous Medical Problems (lymphedema) - Surgical History Reproductive Surgeries: Surgical HX of;: Breast Surgery (Right mastectomy in 1988) - Family History Family History: Reports;: Family Heart Disease (Father), Family Hypertension ( Mother) - Social History Smoking Status: Never smoker Frequency of Alcohol Use: None Type of Drug Use: None Results - Labs CBC & BMP: 11/16/16 00:49 11/16/16 00:49 Quality Measures - VTE Contraindication to Mechanical VTE Prophylaxis: Vascular Ulceration
--- NOTE | 2016-11-16 13:59 | Hospitalist Progress Note ---
Assessment and Plan (1) Open wound of both lower extremities with complication Status: Acute Assessment and plan: Patient with bilateral open wound with underlying chronic edema of her lower extremities may be venous stasis. She is on antibiotic and has been afebrile. WBC count within normal range Will defer the management to Dr. Jerez for the wound. Current Visit: Yes (2) Bilateral lower extremity edema Status: Chronic Assessment and plan: Probably contributed by pulmonary hypertension and venous stasis. Pulmonary hypertension being worked up by Dr. Bennett Current Visit: Yes (3) Pulmonary hypertension Status: Acute Assessment and plan: Being worked up by Dr. Bennett. Negative echo lower extremity Dopplers negative for DVT upper extremity Doppler studies pending sleep studies is planned Current Visit: Yes (4) Iron deficiency anemia Status: Acute Assessment and plan: We will keep monitoring. Patient is on Protonix and iron. Stool at the Hemoccult still not done. Hemoglobin checked better today. We will keep watch transfuse as needed Current Visit: Yes (5) ALMA (acute kidney injury) Status: Acute Assessment and plan: Renal function overall unchanged from yesterday. NSAIDs. Stop patient states she had chronic pain in the knee and she was taking Indocin for that noted she already has prescription for hydrocodone/APAP and she has been given one about half an hour ago Current Visit: Yes Hospitalist: Subjective Interval history: Ms. Swan is a 75 year old female with history of hypertension, anemia , peripheral vascular disease and breast cancer status post mastectomy in 1988 and chronic swelling of the right upper limb. She was admitted on 11/10/[address] Jerez for bilateral lower extremities wound and edema. She has edema in lower extremities for about 2 years. She has a drainage for a father both legs from the ulcers. She also has a right upper extremity edema which has been worsening recently. She has been on antibiotics Her wound culture has reported gram-negative rods. We were consulted for medical management. Wound dressing was changed yesterday. Due to presence of edema bilaterally in lower extremities echocardiogram was done and noted no valvular disease but finding of pulmonary hypertension. Cardiology advised to call a consult to pulmonary. Patient underwent VQ scan and it was negative for PE E her lower extremity Dopplers negative for DVT. Upper extremity Dopplers was ordered by Dr. Bennett but refused yesterday but she is willing to go today. Although she does not have classic symptoms of sleep apnea sleep medicine was consulted plan to perform HSAT. She is doing well overall according to her she has a fever wound still draining some Exam - Constitutional Vitals: Period Temp Pulse Resp BP Sys/Castro Pulse Ox Last 24 Hr 96.2 F-99.5 F 59-75 16-22 109-155/52-70 91-100 General appearance: no acute distress. Alert and oriented - Respiratory Respiratory exam: Present: clear to auscultation bilaterally. Absent: rales, rhonchi - Cardiovascular Cardiovascular exam: Present: regular rate and rhythm. Absent: tachycardia - GI/Abdominal GI/Abdominal exam: Present: normal bowel sounds, soft. Absent: distended, tenderness - Extremities Exam Extremities exam: Present: edema (Bilateral lower extremities edema with some drainage from dressed wound . Also has right upper extremities edema but no wound - Expanded ENT Exam Mouth exam: Present: moist Teeth exam: Present: other (upper denture plate intact/large tongue) Results - Labs CBC & BMP: 11/16/16 00:49 11/16/16 00:49 Lab Results: I have reviewed the past 24 hour labs Quality Measures - VTE Contraindication to Mechanical VTE Prophylaxis: Vascular Ulceration
[2016-11-16] MEDS: ACETAMINOPHEN 325 MG TABLET PO PRN (15:30)
[2016-11-16] MEDS: DOCUSATE SODIUM 100 MG CAPSULE PO SCH (21:31)
[2016-11-17] MEDS: CEFTAROLINE 600 MG in SODIUM CHLORIDE 0.9% 100 ML IV SCH ×2 (02:16→15:56)
[2016-11-17 05:23] LABS: Basophils % 0.4 % (0.0-0.8); Eosinophils # 0.2 10*3/uL (0.0-0.87); Eosinophils % 3.5 % (0.00-10.9); Hematocrit 22.4 VOL% (35.7-47.0); Hemoglobin 6.9 GM/DL (12.0-16.0); Immature Granulocytes % 0.4 %; Immature Granulocytes Absolute 0.02 #; Lymphocytes # 1.2 10*3/uL (1.4-4.0); Lymphocytes % 25.4 % (21.3-54.2); Mean Corpuscular HGB Conc 30.8 GM/DL (32-36); Mean Corpuscular Hemoglobin 25 PG (27-34); Mean Corpuscular Volume 79.7 FL (87-102); Mean Platelet Volume 8.8 FL (9.6-12.0); Monocytes # 0.7 10*3/uL (0.11-0.8); Monocytes % 14.1 % (1.7-12.7); Neutrophils # 2.6 10*3/uL (1.4-7.4); Neutrophils % 56.2 % (38.7-73.9); Platelet Count 333 T/CUMM (130-400); Red Blood Count 2.81 MC/CUMM (3.8-5.5); Red Cell Distribution Width 27.4 % (9.3-17.3); White Blood Count 4.6 T/CUMM (4-12)
[2016-11-17 05:44] LABS: Calcium 7.7 MG/DL (8.5-10.1); Osmolality,Calculated 281.3 MOS/KG (273-304); Potassium 4.7 MMOL/L (3.5-5.1)
[2016-11-17 06:09] LABS: Eosinophils 3 % (0-10); Hypochromasia 1+; Lymphocytes 19 % (20-55); Platelet Estimate Adequate; Segmented Neutrophils 63 % (50-85); Total Cells Counted 100
[2016-11-17 06:10] LABS: Microcytosis Slight
[2016-11-17] MEDS ORDERED: SODIUM CHLORIDE 0.9% 250 ML IV PRN (07:56)
[2016-11-17] MEDS ORDERED: FUROSEMIDE 40 MG/4 ML VIAL IM ONE ×2 (08:05→23:00)
[2016-11-17] MEDS: IRON (CARBONYL)/VIT C/B12/FA TABLET PO SCH (08:46)
[2016-11-17] MEDS: amLODIPine 5 MG TABLET PO SCH (08:47)
[2016-11-17] MEDS: PANTOPRAZOLE 40 MG TABLET PO SCH (08:47)
[2016-11-17] MEDS: METOPROLOL TARTRATE 50 MG TABLET PO SCH ×2 (08:47→20:17)
[2016-11-17] MEDS ORDERED: SKIN HEALING OINT (AQUAPHOR) 50 GM TUBE TOP PRN ×2 (08:59→09:24)
--- NOTE | 2016-11-17 09:17 | General Surgery Progress Note ---
Assessment and Plan (1) Cellulitis of both lower extremities Status: Acute Assessment and plan: Bilateral lower extremity cellulitis. We have emerging cultures from her initial office visit on 11/08/2016, and these will be addressed. We will also begin meticulous local wound care, and have her placed on bedrest with compression wraps, as this is likely mixed arterial and venous disease. We will watch her closely for changes as well as signs of advancing infection until the final culture results are reported. 11/13/2016. Bilateral lower extremity cellulitis with superimposed chronic venous stasis ulcers. We have gram-negative organisms emerging on her most recent cultures. The patient is on Teflaro, and topical Silvadene. We are also using a wound care product with silver, which should also help us combat gram-negative organisms. She previously cultured pseudomonas and Serratia. The wounds are clinically improving, so we will continue this protocol until final culture results are available. 11/14/16. Lower extremity wounds continue to improve. We are now looking at how we can manage her lower extremity wounds as outpatient, as she definitely will need support and daily dressing changes for the next month. 11/17/2016. Her bilateral lower extremity wounds continue to improve. There is new epithelial bridging on the left, and the right was also continues to improve. The infection now appears to be controlled. We are seeing tremendous improvement with consistent care and local care, in addition to the antibiotics. We had planned for discharge today, however with her low H&H and her continued workup for pulmonary edema, we feel it prudent to continue her stay through the weekend. 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 She has a component of mild cellulitis, which does appear to be improved slightly from her office visit of 11/08/2016. We will plan to continue antibiotics and consult OT for this on Sunday. I hesitate to apply any type of short stretch wraps to this, as I do not believe we have OT to guide us for this nor are we able to offer her any type of MLD over the weekend. I do not want to exacerbate her problem by inappropriately applied or under utilized wraps. We will just have her elevate the extremity on a pillow until OT can evaluate. 11/13/2016. Improving mild cellulitis of the right upper extremity in a patient with known postmastectomy lymphedema. Since this seems to be improving and she has historically worn a lymphedema sleeve, I will go ahead and ask OT to visit with her and see what their recommendations are. It does not sound like from her history she has ever received any type of MLD, so will see if they feel she is a candidate for this. 11/17/2016. Stable right postmastectomy lymphedema. I do not see a note from occupational therapy, so will really visit why they have not received that consult. We will continue just close observation for now. Current Visit: Yes (3) Hypertension Status: Acute Assessment and plan: Hypertension by history. Hospitalists have been consulted, and her home meds will be restarted. Will defer to any interventions they deem necessary. Current Visit: Yes (4) Peripheral vascular disease Status: Acute Assessment and plan: Lower extremity with chronic venous stasis disease and history of prior stents placed by Dr. chun atkinson on the right lower extremity. We are unclear as to whether or not this was a venous arterial problem. We may want to look at lower arterial studies, however this will be difficult to ascertain due to her chronic venous ulcerations. We will watch closely for excessive ischemic changes and see if we are able to investigate this problem further should there be a need to determine whether this is arterial versus venous. 11/13/2016. No signs of any type of arterial compromise or ischemic progression. These wounds seem to be primarily stasis, so at this time will defer any type of arterial workup unless we see signs of ischemia. It would be nice to know the status of her stents, so will ask if we can get records from [facility] to try to ascertain what type of vascular stents were placed. Current Visit: Yes (5) Anemia of chronic disease Status: Acute Assessment and plan: She reportedly has received transfusions recently for an H&H of 5 and 16, based on records received from her home health agency at the time of her initial office visit. This appears to be anemia of chronic disease and she is on iron replacement therapy. We will repeat labs and obtain stools for occult blood. alth agency. Today her hematocrit is 27, so we will just watch her labs closely and transfuse as necessary. 11/13/2016. Anemia is stable. Hospital has been managing, and her iron has been restarted. Of note her stools have not been collected nor has she had a bowel movement since admission. We will go ahead and try to stimulate her bowels, and she may need to be considered for colonoscopy, given her history of breast cancer, although I suspect that she simply has sluggish bowels due to her iron replacement therapy. 11/17/2016. Her H&H remains low. We will go ahead and transfuse 2 units today. She still has not been able to collect stools for occult blood, so we will continue to work toward that and. Her meloxicam has been stopped. She denies any gross melena. Will get GI consult if we are able to obtain positive stool for occult blood. Of note, she has refused colonoscopy in the past. Current Visit: Yes Subjective Patient reports: Present: still having pain, pain is less, tolerating a regular diet, bowel movement (She denies blood) Exam - Constitutional Vitals: Period Temp Pulse Resp BP Sys/Castro Pulse Ox Last 24 Hr 97.4 F-99.2 F 59-70 16-20 109-152/57-78 98-100 General appearance: no acute distress, morbidly obese - Respiratory Respiratory exam: Absent: rales, wheezes - Cardiovascular Cardiovascular exam: Present: RRR - GI/Abdominal GI/Abdominal exam: Present: hypoactive bowel sounds. Absent: tenderness - Extremities Exam Extremities exam: Present: other (Her bilateral extremities continue to improve. There is some new epithelialization with epithelial bridging left greater than right. There is no necrotic tissue, but mild slough still present right. She has no erythema. There are no pressure changes. Is still somewhat tender, though less so) Results - Labs CBC & BMP: 11/17/16 03:33 11/17/16 03:33 Lab Results: I have reviewed the past 24 hour labs (H&H.) Quality Measures - VTE Contraindication to Mechanical VTE Prophylaxis: Vascular Ulceration
[2016-11-17] MEDS ORDERED: CHLORHEXIDINE 4% SOLN 118 ML BOTTLE TOP ONE (09:24)
[2016-11-17] MEDS: FUROSEMIDE 40 MG TABLET PO SCH (09:24)
[2016-11-17] MEDS: ACETIC ACID 0.25% IRRIGATION 1,000 ML BOTTLE IRRIG SCH ×2 (09:30→20:13)
[2016-11-17] MEDS: SILVER SULFADIAZINE 1% CREAM 25 GM TUBE TOP SCH (09:30)
--- NOTE | 2016-11-17 09:57 | Pulmonology Progress Note ---
Pulmonary - PN: Subj Interval history: Blaze Pham, ANP-BC, GNP-BC, acting as scribe for Dr. Brain Bennett This is a 75-year-old black female who we saw in initial pulmonary consultation on 11/15/2016. At that time, our impressions were: 1. Pulmonary hypertension of undetermined etiology. Patient would be a good candidate for sleep apnea. No cardiac cause present. No evidence of lower extremity deep venous thrombophlebitis in the presence of chronic edema. Look for clots in the upper extremities. 2. Chronic renal failure 3. Chronic infection of the lower extremities. 4. History of breast cancer and lymphedema of the right upper extremity 5. History of high blood pressure 6. Iron deficiency and folic acid deficiency anemia 7. Right mastectomy for breast cancer 1988. 8. See past history 11/16/2016. On 11/15/2016 I ordered upper extremity Doppler venograms looking for possible clots and possible source of pulmonary hypertension. She has refused these 3 times. I have explained to her the rationale for getting these venograms and I told her I would document her decision to not have these done. Norvasc 5 mg daily to treat pulmonary hypertension was started on 11/15/2016 and so far patient tolerated this well. Electrolytes are normal. Creatinine is 1.7 with a BUN of 19. H&H is 8.2/27.1. White count 6900 with a normal differential and platelets of 466,000. Folic acid is low. Vitamin B12 is in the lower part of normal range. Iron saturation is low. Doppler venograms of the lower extremities are negative for deep venous thrombophlebitis. Ventilation perfusion lung scan shows no evidence of pulmonary emboli. 11/17/2016. The patient was seen today while having her wound dressing change done. We have discussed the case with Dr. Jerez and coordinated our care. This admission, we started the patient on Norvasc for pulmonary hypertension she is tolerating this well. Doppler venograms of the lower extremities were negative. We had ordered a Doppler venogram of the upper extremities to make sure that there was no clot. She has lymphedema of the right upper extremity secondary to history of breast cancer. She has been unwilling to proceed with upper extremity Doppler venograms secondary to this. That said, her VQ lung scan showed no evidence of pulmonary emboli. She did not tolerate a CT of the chest with PE protocol secondary to chronic renal failure. She has been seen in sleep consultation by Dr. Stapleton. HSAT is pending. Microbiology. Right leg wound culture has grown pseudomonas aeruginosa. This is being managed by Dr. Jerez. Medications have been reviewed. We made no changes today. Labs have been reviewed. White count is 4600 with 56.2% segs; H&H has decreased to 6.9/22.4 decreased indices and increased red blood cell distribution with; platelet count 333,000; creatinine 1.40, BUN 17, electrolytes are normal; calcium remains low at 7.7 Exam (Progress Note) - Constitutional Vitals: Period Temp Pulse Resp BP Sys/Castro Pulse Ox Last 24 Hr 97.4 F-99.2 F 59-70 16-20 109-152/57-78 98-100 Exam: Chest is clear Heart no gallop Abdomen is obese, but nontender and nondistended; bowel sounds are positive [address] Jerez; RUE with lymphedema Psychiatric oriented 3 Neurologic long-term motor function is intact Plan: Vitamin D level. Repeat CBC BMP/magnesium in the morning. Continue Norvasc for pulmonary hypertension. We will be out of town until November 21. Dr. Mohan is conservation of resources commissioner and can see the patient if needed. Results - Labs CBC & BMP: 11/17/16 03:33 11/17/16 03:33
[2016-11-17] MEDS: HYDROmorphone 2 MG/1 ML VIAL IV PRN (11:46)
--- NOTE | 2016-11-17 16:29 | Hospitalist Progress Note ---
Assessment and Plan (1) Open wound of both lower extremities with complication Status: Acute Assessment and plan: Patient with bilateral open wound with underlying chronic edema of her lower extremities may be venous stasis. She is on antibiotic and has been afebrile. WBC count within normal range Will defer the management to Dr. Jerez for the wound. Current Visit: Yes (2) Bilateral lower extremity edema Status: Chronic Assessment and plan: Probably contributed by pulmonary hypertension and venous stasis. Pulmonary hypertension being worked up by Dr. Bennett. Patient had negative venous Dopplers of lower extremities negative VQ scan she is refusing upper extremity Dopplers sleep studies done and result pending Current Visit: Yes (3) Pulmonary hypertension Status: Acute Assessment and plan: See above Current Visit: Yes (4) Iron deficiency anemia Status: Acute Assessment and plan: We will keep monitoring. Patient is on Protonix and iron. Stool at the Hemoccult still not done. Hemoglobin hematocrit seemed to be low no overt bleeding. Primary service already ordered packed RBC transfused Current Visit: Yes (5) ALMA (acute kidney injury) Status: Acute Assessment and plan: Renal function improved patient to be off NSAIDs Current Visit: Yes Hospitalist: Subjective Interval history: She still did not let us to the upper extremities venous Dopplers also have explained many times that this is not an invasive test and should not be harmful. She has a sleep study done but the results are pending Demented she is doing fine afebrile has no acute symptoms Exam - Constitutional Vitals: Period Temp Pulse Resp BP Sys/Castro Pulse Ox Last 24 Hr 97.5 F-99.2 F 63-70 16-18 124-152/52-78 98-100 General appearance: no acute distress. Alert and oriented - Respiratory Respiratory exam: Present: clear to auscultation bilaterally. Absent: rales, rhonchi - Cardiovascular Cardiovascular exam: Present: regular rate and rhythm. Absent: tachycardia. - GI/Abdominal GI/Abdominal exam: Present: normal bowel sounds, soft. Absent: distended, tenderness - Extremities Exam Extremities exam: Present: edema (Bilateral lower extremities edema . Dressing was changed earlier today and seems to be dry at least at present . Also has right upper extremities edema but no wound edema unchanged [employer]: Awake and alert oriented 3 - Expanded ENT Exam Mouth exam: Present: moist Teeth exam: Present: other (upper denture plate intact/large tongue) Results - Labs CBC & BMP: 11/17/16 03:33 11/17/16 03:33 Lab Results: I have reviewed the past 24 hour labs Quality Measures - VTE Contraindication to Mechanical VTE Prophylaxis: Vascular Ulceration
[2016-11-17] MEDS: DOCUSATE SODIUM 100 MG CAPSULE PO SCH (20:16)
[2016-11-18] MEDS: CEFTAROLINE 600 MG in SODIUM CHLORIDE 0.9% 100 ML IV SCH ×2 (04:50→15:14)
[2016-11-18 06:18] LABS: Basophils % 0.6 % (0.0-0.8); Eosinophils # 0.2 10*3/uL (0.0-0.87); Hematocrit 30.3 VOL% (35.7-47.0); Hemoglobin 9.5 GM/DL (12.0-16.0); Immature Granulocytes % 0.4 %; Immature Granulocytes Absolute 0.02 #; Lymphocytes # 1.5 10*3/uL (1.4-4.0); Mean Corpuscular HGB Conc 31.4 GM/DL (32-36); Mean Corpuscular Hemoglobin 26 PG (27-34); Mean Corpuscular Volume 82.3 FL (87-102); Mean Platelet Volume 8.4 FL (9.6-12.0); Monocytes # 0.7 10*3/uL (0.11-0.8); Monocytes % 14.3 % (1.7-12.7); Neutrophils # 2.5 10*3/uL (1.4-7.4); Neutrophils % 50.7 % (38.7-73.9); Platelet Count 316 T/CUMM (130-400); Red Blood Count 3.68 MC/CUMM (3.8-5.5); Red Cell Distribution Width 25.2 % (9.3-17.3)
[2016-11-18 06:47] LABS: Hypochromasia 1+; Microcytosis 1+
[2016-11-18 06:48] LABS: Calcium 8.1 MG/DL (8.5-10.1); Platelet Estimate Normal
[2016-11-18 06:49] LABS: Osmolality,Calculated 280.3 MOS/KG (273-304); Potassium 4.5 MMOL/L (3.5-5.1)
[2016-11-18] MEDS: FUROSEMIDE 40 MG TABLET PO SCH (09:34)
[2016-11-18] MEDS: amLODIPine 5 MG TABLET PO SCH (09:34)
[2016-11-18] MEDS: PANTOPRAZOLE 40 MG TABLET PO SCH (09:34)
[2016-11-18] MEDS: IRON (CARBONYL)/VIT C/B12/FA TABLET PO SCH (09:34)
[2016-11-18] MEDS: METOPROLOL TARTRATE 50 MG TABLET PO SCH ×2 (09:34→20:13)
[2016-11-18] MEDS: ACETAMINOPHEN 325 MG TABLET PO PRN (09:44)
[2016-11-18] MEDS ORDERED: traZODone 50 MG TABLET PO PRN (15:16)
--- NOTE | 2016-11-18 15:19 | Hospitalist Progress Note ---
Assessment and Plan (1) Bilateral lower extremity edema Status: Chronic Current Visit: Yes (2) Open wound of both lower extremities with complication Status: Acute Assessment and plan: Surgery managing Current Visit: Yes (3) Iron deficiency anemia Status: Acute Assessment and plan: Started on iron supplements Transfused yesterday with appropriate response Current Visit: Yes (4) ALMA (acute kidney injury) Status: Acute Assessment and plan: Improved Current Visit: Yes (5) Pulmonary hypertension Status: Acute Current Visit: Yes Hospitalist: Subjective Interval history: Patient doing well this am. Complains of le pain and not being able to sleep overnight. Exam - Constitutional Vitals: Period Temp Pulse Resp BP Sys/Castro Pulse Ox Last 24 Hr 97.4 F-100.6 F 57-86 18-19 110-136/51-74 94-99 General appearance: over weight - Head Head exam: Present: normocephalic, atraumatic - Eye Eye exam: Present: EOMI Pupils: Present: GEOVANNI - ENT ENT exam: Present: normal exam - Expanded ENT Exam Mouth exam: Present: moist Teeth exam: Present: other (upper denture plate intact/large tongue) - Neck Neck exam: Present: normal inspection - Respiratory Respiratory exam: Present: clear to auscultation bilaterally. Absent: wheezes - Cardiovascular Cardiovascular exam: Present: regular rate and rhythm - GI/Abdominal GI/Abdominal exam: Present: normal bowel sounds, soft. Absent: tenderness, rebound - Extremities Exam Extremities exam: Present: edema - Back Exam Back exam: Present: normal inspection - Neurological Exam Neurological exam: Present: alert, oriented X3 - Psychiatric Psychiatric exam: Present: normal affect, normal mood - Skin Skin exam: Present: warm, intact Results - Labs CBC & BMP: 11/18/16 05:16 11/18/16 05:16 Quality Measures - VTE Contraindication to Mechanical VTE Prophylaxis: Vascular Ulceration
[2016-11-18] MEDS: ACETIC ACID 0.25% IRRIGATION 1,000 ML BOTTLE IRRIG SCH ×2 (18:33→20:13)
[2016-11-18] MEDS: SILVER SULFADIAZINE 1% CREAM 25 GM TUBE TOP SCH (18:33)
[2016-11-18] MEDS: DOCUSATE SODIUM 100 MG CAPSULE PO SCH (20:13)
[2016-11-19] MEDS: CEFTAROLINE 600 MG in SODIUM CHLORIDE 0.9% 100 ML IV SCH ×2 (03:30→14:31)
[2016-11-19 05:18] LABS: Basophils % 0.6 % (0.0-0.8); Eosinophils # 0.2 10*3/uL (0.0-0.87); Eosinophils % 3.5 % (0.00-10.9); Hematocrit 30.4 VOL% (35.7-47.0); Hemoglobin 9.4 GM/DL (12.0-16.0); Immature Granulocytes % 0.2 %; Immature Granulocytes Absolute 0.01 #; Lymphocytes # 1.3 10*3/uL (1.4-4.0); Lymphocytes % 24.9 % (21.3-54.2); Mean Corpuscular HGB Conc 30.9 GM/DL (32-36); Mean Corpuscular Hemoglobin 26 PG (27-34); Mean Corpuscular Volume 82.8 FL (87-102); Mean Platelet Volume 8.3 FL (9.6-12.0); Monocytes # 0.8 10*3/uL (0.11-0.8); Monocytes % 15.1 % (1.7-12.7); Neutrophils # 2.9 10*3/uL (1.4-7.4); Neutrophils % 55.7 % (38.7-73.9); Platelet Count 287 T/CUMM (130-400); Red Blood Count 3.67 MC/CUMM (3.8-5.5); Red Cell Distribution Width 25.2 % (9.3-17.3); White Blood Count 5.2 T/CUMM (4-12)
[2016-11-19 05:48] LABS: Platelet Estimate Normal
[2016-11-19 05:50] LABS: Calcium 8.1 MG/DL (8.5-10.1); Magnesium 2.1 MG/DL (1.8-2.4); Osmolality,Calculated 282.1 MOS/KG (273-304); Potassium 4.4 MMOL/L (3.5-5.1)
[2016-11-19] MEDS: METOPROLOL TARTRATE 50 MG TABLET PO SCH ×2 (09:52→20:00)
[2016-11-19] MEDS: amLODIPine 5 MG TABLET PO SCH (09:52)
[2016-11-19] MEDS: PANTOPRAZOLE 40 MG TABLET PO SCH (09:52)
[2016-11-19] MEDS: FUROSEMIDE 40 MG TABLET PO SCH (09:52)
[2016-11-19] MEDS: IRON (CARBONYL)/VIT C/B12/FA TABLET PO SCH (09:52)
[2016-11-19] MEDS: SILVER SULFADIAZINE 1% CREAM 25 GM TUBE TOP SCH (11:30)
[2016-11-19] MEDS: ACETIC ACID 0.25% IRRIGATION 1,000 ML BOTTLE IRRIG SCH ×2 (11:35→20:00)
[2016-11-19] MEDS ORDERED: MORPHINE 2 MG/1 ML SYRINGE IV PRN (11:59)
--- NOTE | 2016-11-19 11:59 | Event Note ---
She has complaints of pain but this appears to be chronic. I took down her dressings and her wounds appear clean and I see no evidence of cellulitis or purulence. We will continue with wound care as we are doing. She may need some pain medicine with dressing changes.
--- NOTE | 2016-11-19 15:40 | Hospitalist Progress Note ---
Assessment and Plan (1) Bilateral lower extremity edema Status: Chronic Current Visit: Yes (2) Open wound of both lower extremities with complication Status: Acute Assessment and plan: Surgery managing Current Visit: Yes (3) Iron deficiency anemia Status: Acute Assessment and plan: Started on iron supplements Transfused 11/18/16 with appropriate response Remains stable Current Visit: Yes (4) ALMA (acute kidney injury) Status: Acute Assessment and plan: Remains stable Current Visit: Yes (5) Pulmonary hypertension Status: Acute Current Visit: Yes Hospitalist: Subjective Interval history: Patient resting comfortably in bed. H/H remains stable. Pain is a little better. Exam - Constitutional Vitals: Period Temp Pulse Resp BP Sys/Castro Pulse Ox Last 24 Hr 97.4 F-99.4 F 55-67 16-20 111-154/53-70 94-100 General appearance: over weight - Head Head exam: Present: normocephalic, atraumatic - Eye Eye exam: Present: EOMI Pupils: Present: GEOVANNI - ENT ENT exam: Present: normal exam - Expanded ENT Exam Mouth exam: Present: moist Teeth exam: Present: other (upper denture plate intact/large tongue) - Neck Neck exam: Present: normal inspection - Respiratory Respiratory exam: Present: clear to auscultation bilaterally. Absent: rhonchi, wheezes - Cardiovascular Cardiovascular exam: Present: regular rate and rhythm - GI/Abdominal GI/Abdominal exam: Present: normal bowel sounds, soft. Absent: tenderness, rebound - Extremities Exam Extremities exam: Present: normal inspection - Back Exam Back exam: Present: normal inspection - Neurological Exam Neurological exam: Present: alert, oriented X3 - Psychiatric Psychiatric exam: Present: normal affect, normal mood - Skin Skin exam: Present: warm, intact Results - Labs CBC & BMP: 11/19/16 05:06 11/19/16 05:06 Quality Measures - VTE Contraindication to Mechanical VTE Prophylaxis: Vascular Ulceration
[2016-11-19] MEDS: DOCUSATE SODIUM 100 MG CAPSULE PO SCH (20:00)
[2016-11-20] MEDS: CEFTAROLINE 600 MG in SODIUM CHLORIDE 0.9% 100 ML IV SCH ×2 (03:35→14:53)
[2016-11-20 05:25] LABS: Basophils % 0.4 % (0.0-0.8); Eosinophils # 0.2 10*3/uL (0.0-0.87); Eosinophils % 3.4 % (0.00-10.9); Hematocrit 31.5 VOL% (35.7-47.0); Hemoglobin 9.9 GM/DL (12.0-16.0); Immature Granulocytes % 0.2 %; Immature Granulocytes Absolute 0.01 #; Lymphocytes # 1.4 10*3/uL (1.4-4.0); Lymphocytes % 30.1 % (21.3-54.2); Mean Corpuscular HGB Conc 31.4 GM/DL (32-36); Mean Corpuscular Hemoglobin 26 PG (27-34); Mean Corpuscular Volume 83.6 FL (87-102); Mean Platelet Volume 8.6 FL (9.6-12.0); Monocytes # 0.7 10*3/uL (0.11-0.8); Monocytes % 15.1 % (1.7-12.7); Neutrophils # 2.4 10*3/uL (1.4-7.4); Neutrophils % 50.8 % (38.7-73.9); Platelet Count 252 T/CUMM (130-400); Red Blood Count 3.77 MC/CUMM (3.8-5.5); Red Cell Distribution Width 24.9 % (9.3-17.3); White Blood Count 4.7 T/CUMM (4-12)
[2016-11-20 05:54] LABS: Calcium 7.9 MG/DL (8.5-10.1); Magnesium 1.8 MG/DL (1.8-2.4); Osmolality,Calculated 280.3 MOS/KG (273-304); Potassium 4.3 MMOL/L (3.5-5.1)
[2016-11-20 05:59] LABS: Hypochromasia 1+; Microcytosis 1+
[2016-11-20 06:00] LABS: Ovalocytes Slight; Platelet Estimate Normal; Tear Drop Cells Slight
[2016-11-20] MEDS: ACETAMINOPHEN 325 MG TABLET PO PRN (08:06)
[2016-11-20] MEDS: METOPROLOL TARTRATE 50 MG TABLET PO SCH ×2 (08:43→20:48)
[2016-11-20] MEDS: IRON (CARBONYL)/VIT C/B12/FA TABLET PO SCH (08:43)
[2016-11-20] MEDS: amLODIPine 5 MG TABLET PO SCH (08:44)
[2016-11-20] MEDS: FUROSEMIDE 40 MG TABLET PO SCH (08:44)
[2016-11-20] MEDS: PANTOPRAZOLE 40 MG TABLET PO SCH (08:44)
--- NOTE | 2016-11-20 09:20 | General Surgery Progress Note ---
Assessment and Plan (1) Open wound of both lower extremities with complication Status: Acute Assessment and plan: Patient appears to be stable on current antibiotics and wound care. Patient is currently on Teflaro with estimate is growing in her cultures. There is reported clinical improvement on this, so I will not change at this time. Continue wound care and elevation. Current Visit: Yes (2) Cellulitis of both lower extremities Status: Acute Assessment and plan: Same as above Current Visit: Yes (3) ALMA (acute kidney injury) Status: Acute Assessment and plan: Likely a chronic component to this as her kidney function is stable. Continue to monitor renal function, electrolytes, and urine output. Current Visit: Yes (4) Anemia of chronic disease Status: Acute Assessment and plan: Patient is post transfusion with stable H&H. We will continue to hold Lovenox and monitor. Fecal occult blood testing was negative. She has been started on iron supplementation. Encouraged patient to sit up in the chair today. Current Visit: Yes Subjective Patient reports: Present: no new complaints, still having pain, pain is less, tolerating a regular diet, voiding w/o difficulty, afebrile Exam - Constitutional Vitals: Period Temp Pulse Resp BP Sys/Castro Pulse Ox Last 24 Hr 97.4 F-98.6 F 64-80 17-20 105-136/52-70 90-100 General appearance: no acute distress, morbidly obese - Head Head exam: Present: normal inspection, normocephalic - Respiratory Respiratory exam: Present: clear to auscultation bilaterally - Cardiovascular Cardiovascular exam: Present: RRR - GI/Abdominal GI/Abdominal exam: Present: normal bowel sounds. Absent: distended, tenderness - Extremities Exam Extremities exam: Present: other (Dressings taken down. There does not appear to be any significant purulent drainage. Edema is present but appears to be improved with wrinkle signs present. Wounds are weeping but have adequate dressing for waking. Cap refill approximately 4 seconds in toes.) - Neurological Exam Neurological exam: Present: alert, oriented X3 - Skin Skin exam: Present: normal color, warm Results - Labs CBC & BMP: 11/20/16 05:01 11/20/16 05:01 Labs: Wound culture: Gram-negative rods Wound culture: Pseudomonas Quality Measures - VTE Contraindication to Mechanical VTE Prophylaxis: Vascular Ulceration
[2016-11-20] MEDS: ACETIC ACID 0.25% IRRIGATION 1,000 ML BOTTLE IRRIG SCH ×2 (10:30→20:48)
[2016-11-20] MEDS ORDERED: MORPHINE 2 MG/1 ML SYRINGE IV PRN (11:14)
[2016-11-20] MEDS ORDERED: oxyCODONE IR 5 MG TABLET PO PRN (11:15)
--- NOTE | 2016-11-20 11:58 | Hospitalist Progress Note ---
Assessment and Plan (1) Bilateral lower extremity edema Status: Chronic Current Visit: Yes (2) Open wound of both lower extremities with complication Status: Acute Assessment and plan: Surgery managing Will change her pain regimen around some Current Visit: Yes (3) Iron deficiency anemia Status: Acute Assessment and plan: Started on iron supplements Transfused 11/18/16 with appropriate response Remains stable Current Visit: Yes (4) ALMA (acute kidney injury) Status: Acute Assessment and plan: Remains stable Reports that she takes lasix every other day, will change to that regimen Current Visit: Yes (5) Pulmonary hypertension Status: Acute Current Visit: Yes Hospitalist: Subjective Interval history: Patient reports increased lower extremity pain. Pain is worse with dressing changes. Reports that the pain medications are not helping. Exam - Constitutional Vitals: Period Temp Pulse Resp BP Sys/Castro Pulse Ox Last 24 Hr 97.4 F-98.6 F 64-80 17-20 105-136/52-70 90-100 General appearance: over weight - Head Head exam: Present: normocephalic, atraumatic - Eye Eye exam: Present: EOMI Pupils: Present: GEOVANNI - ENT ENT exam: Present: normal exam - Expanded ENT Exam Mouth exam: Present: moist Teeth exam: Present: other (upper denture plate intact/large tongue) - Neck Neck exam: Present: normal inspection - Respiratory Respiratory exam: Present: clear to auscultation bilaterally. Absent: rhonchi, wheezes - Cardiovascular Cardiovascular exam: Present: regular rate and rhythm - GI/Abdominal GI/Abdominal exam: Present: normal bowel sounds, soft. Absent: tenderness, rebound - Extremities Exam Extremities exam: Present: other (BLE wrapped, c/d/i) - Back Exam Back exam: Present: normal inspection - Neurological Exam Neurological exam: Present: alert, oriented X3 - Psychiatric Psychiatric exam: Present: normal affect, normal mood - Skin Skin exam: Present: warm, intact Results - Labs CBC & BMP: 11/20/16 05:01 11/20/16 05:01 Quality Measures - VTE Contraindication to Mechanical VTE Prophylaxis: Vascular Ulceration
[2016-11-20] MEDS: SILVER SULFADIAZINE 1% CREAM 25 GM TUBE TOP SCH (12:00)
[2016-11-20] MEDS: ACETAMINOPHEN 500 MG TABLET PO SCH ×2 (15:58→22:47)
[2016-11-20] MEDS: DOCUSATE SODIUM 100 MG CAPSULE PO SCH (20:48)
[2016-11-21] MEDS: CEFTAROLINE 600 MG in SODIUM CHLORIDE 0.9% 100 ML IV SCH ×2 (02:29→15:45)
[2016-11-21 06:24] LABS: Basophils % 0.6 % (0.0-0.8); Eosinophils # 0.1 10*3/uL (0.0-0.87); Eosinophils % 2.8 % (0.00-10.9); Hematocrit 27.9 VOL% (35.7-47.0); Hemoglobin 8.8 GM/DL (12.0-16.0); Immature Granulocytes % 0.4 %; Immature Granulocytes Absolute 0.02 #; Lymphocytes # 1.3 10*3/uL (1.4-4.0); Lymphocytes % 27.8 % (21.3-54.2); Mean Corpuscular HGB Conc 31.5 GM/DL (32-36); Mean Corpuscular Hemoglobin 26 PG (27-34); Mean Corpuscular Volume 83.5 FL (87-102); Mean Platelet Volume 8.7 FL (9.6-12.0); Monocytes # 0.7 10*3/uL (0.11-0.8); Monocytes % 15.6 % (1.7-12.7); Neutrophils # 2.5 10*3/uL (1.4-7.4); Neutrophils % 52.8 % (38.7-73.9); Platelet Count 246 T/CUMM (130-400); Red Blood Count 3.34 MC/CUMM (3.8-5.5); Red Cell Distribution Width 24.5 % (9.3-17.3); White Blood Count 4.7 T/CUMM (4-12)
[2016-11-21 06:44] LABS: Calcium 7.7 MG/DL (8.5-10.1); Osmolality,Calculated 280.3 MOS/KG (273-304); Potassium 3.9 MMOL/L (3.5-5.1)
[2016-11-21 06:50] LABS: Eosinophils 2 % (0-10); Hypochromasia 2+; Lymphocytes 19 % (20-55); Microcytosis 1+; Platelet Estimate Adequate; Segmented Neutrophils 69 % (50-85); Total Cells Counted 100
[2016-11-21] MEDS: ACETAMINOPHEN 500 MG TABLET PO SCH ×3 (07:14→21:14)
--- NOTE | 2016-11-21 08:50 | General Surgery Progress Note ---
Assessment and Plan (1) Cellulitis of both lower extremities Status: Acute Assessment and plan: Bilateral lower extremity cellulitis. We have emerging cultures from her initial office visit on 11/08/2016, and these will be addressed. We will also begin meticulous local wound care, and have her placed on bedrest with compression wraps, as this is likely mixed arterial and venous disease. We will watch her closely for changes as well as signs of advancing infection until the final culture results are reported. 11/13/2016. Bilateral lower extremity cellulitis with superimposed chronic venous stasis ulcers. We have gram-negative organisms emerging on her most recent cultures. The patient is on Teflaro, and topical Silvadene. We are also using a wound care product with silver, which should also help us combat gram-negative organisms. She previously cultured pseudomonas and Serratia. The wounds are clinically improving, so we will continue this protocol until final culture results are available. 11/14/16. Lower extremity wounds continue to improve. We are now looking at how we can manage her lower extremity wounds as outpatient, as she definitely will need support and daily dressing changes for the next month. 11/17/2016. Her bilateral lower extremity wounds continue to improve. There is new epithelial bridging on the left, and the right was also continues to improve. The infection now appears to be controlled. We are seeing tremendous improvement with consistent care and local care, in addition to the antibiotics. We had planned for discharge today, however with her low H&H and her continued workup for pulmonary edema, we feel it prudent to continue her stay through the weekend. We will transfuse today and look at discharge the first of next week 11/21/2016. Bilateral lower extremity cellulitis appears to be resolving. We still have positive surface wound cultures, however this may well be a chronically colonized wound and at this point represent treated and not true infection. We will continue her IV antibiotics while here, local care and topical wound measures in addition to compression. We will plan to transition to a short course of p.o. antibiotics when she discharges, which we anticipate will be tomorrow. 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 She has a component of mild cellulitis, which does appear to be improved slightly from her office visit of 11/08/2016. We will plan to continue antibiotics and consult OT for this on Sunday. I hesitate to apply any type of short stretch wraps to this, as I do not believe we have OT to guide us for this nor are we able to offer her any type of MLD over the weekend. I do not want to exacerbate her problem by inappropriately applied or under utilized wraps. We will just have her elevate the extremity on a pillow until OT can evaluate. 11/13/2016. Improving mild cellulitis of the right upper extremity in a patient with known postmastectomy lymphedema. Since this seems to be improving and she has historically worn a lymphedema sleeve, I will go ahead and ask OT to visit with her and see what their recommendations are. It does not sound like from her history she has ever received any type of MLD, so will see if they feel she is a candidate for this. 11/17/2016. Stable right postmastectomy lymphedema. I do not see a note from occupational therapy, so will really visit why they have not received that consult. We will continue just close observation for now. 11/21/2016. Right upper extremity chronic postmastectomy lymphedema is stable without progression to cellulitis. Recommend continued elevation and when she is home she can resume wearing her lymphedema sleeve. Current Visit: Yes (3) Hypertension Status: Acute Assessment and plan: Hypertension by history. Hospitalists have been consulted, and her home meds will be restarted. Will defer to any interventions they deem necessary. Current Visit: Yes (4) Peripheral vascular disease Status: Acute Assessment and plan: Lower extremity with chronic venous stasis disease and history of prior stents placed by Dr. chun atkinson on the right lower extremity. We are unclear as to whether or not this was a venous arterial problem. We may want to look at lower arterial studies, however this will be difficult to ascertain due to her chronic venous ulcerations. We will watch closely for excessive ischemic changes and see if we are able to investigate this problem further should there be a need to determine whether this is arterial versus venous. 11/13/2016. No signs of any type of arterial compromise or ischemic progression. These wounds seem to be primarily stasis, so at this time will defer any type of arterial workup unless we see signs of ischemia. It would be nice to know the status of her stents, so will ask if we can get records from [facility] to try to ascertain what type of vascular stents were placed. Current Visit: Yes (5) Anemia of chronic disease Status: Acute Assessment and plan: She reportedly has received transfusions recently for an H&H of 5 and 16, based on records received from her home health agency at the time of her initial office visit. This appears to be anemia of chronic disease and she is on iron replacement therapy. We will repeat labs and obtain stools for occult blood. alth agency. Today her hematocrit is 27, so we will just watch her labs closely and transfuse as necessary. 11/13/2016. Anemia is stable. Hospital has been managing, and her iron has been restarted. Of note her stools have not been collected nor has she had a bowel movement since admission. We will go ahead and try to stimulate her bowels, and she may need to be considered for colonoscopy, given her history of breast cancer, although I suspect that she simply has sluggish bowels due to her iron replacement therapy. 11/17/2016. Her H&H remains low. We will go ahead and transfuse 2 units today. She still has not been able to collect stools for occult blood, so we will continue to work toward that and. Her meloxicam has been stopped. She denies any gross melena. Will get GI consult if we are able to obtain positive stool for occult blood. Of note, she has refused colonoscopy in the past. 11/21/2016. Anemia of chronic disease, likely due to insidious blood loss from her large chronic lower extremity wounds. She is stable post transfusion, and asymptomatic as well. We will continue her p.o. iron supplementation, and have her PCP follow her trends post discharge. Current Visit: Yes Subjective Patient reports: Present: still having pain, pain is less, tolerating a regular diet. Absent: shortness of breath (This is improved since transfusion.) Exam - Constitutional Vitals: Period Temp Pulse Resp BP Sys/Castro Pulse Ox Last 24 Hr 97.6 F-100.2 F 64-70 18-20 100-120/43-68 94-99 General appearance: no acute distress, morbidly obese - Respiratory Respiratory exam: Present: clear to auscultation bilaterally. Absent: rales, wheezes - GI/Abdominal GI/Abdominal exam: Present: hypoactive bowel sounds, soft. Absent: tenderness - Extremities Exam Extremities exam: Present: edema (Right upper extremity lymphedema is stable without induration. There is no erythema, no tenderness, no weeping. Bilateral lower extremities edema with good control. She has drainage strikethrough on the posterior aspect of the right, but none seen on the left. I did not remove the dressings, as we do not have supplies present in the room for rewrapping.) - Neurological Exam Neurological exam: Present: alert, oriented X3 Results - Labs CBC & BMP: 11/21/16 05:53 11/21/16 05:53 Lab Results: I have reviewed the past 24 hour labs (Hemoglobin and hematocrit are stable today at 8.8/27.9. Micro continues to show preliminary of gram- negative rods on wound culture.) Quality Measures - VTE Contraindication to Mechanical VTE Prophylaxis: Vascular Ulceration
[2016-11-21] MEDS: IRON (CARBONYL)/VIT C/B12/FA TABLET PO SCH (09:25)
[2016-11-21] MEDS: FUROSEMIDE 40 MG TABLET PO SCH (09:26)
[2016-11-21] MEDS: amLODIPine 5 MG TABLET PO SCH (09:26)
[2016-11-21] MEDS: METOPROLOL TARTRATE 50 MG TABLET PO SCH ×2 (09:26→21:15)
--- NOTE | 2016-11-21 10:06 | Pulmonology Progress Note ---
Pulmonary - PN: Subj Interval history: Blaze Pham, ANP-BC, GNP-BC, acting as scribe for Dr. Brain Bennett This is a 75-year-old black female who we saw in initial pulmonary consultation on 11/15/2016. At that time, our impressions were: 1. Pulmonary hypertension of undetermined etiology. Patient would be a good candidate for sleep apnea. No cardiac cause present. No evidence of lower extremity deep venous thrombophlebitis in the presence of chronic edema. Look for clots in the upper extremities. 2. Chronic renal failure 3. Chronic infection of the lower extremities. 4. History of breast cancer and lymphedema of the right upper extremity 5. History of high blood pressure 6. Iron deficiency and folic acid deficiency anemia 7. Right mastectomy for breast cancer 1988. 8. See past history 11/16/2016. On 11/15/2016 I ordered upper extremity Doppler venograms looking for possible clots and possible source of pulmonary hypertension. She has refused these 3 times. I have explained to her the rationale for getting these venograms and I told her I would document her decision to not have these done. Norvasc 5 mg daily to treat pulmonary hypertension was started on 11/15/2016 and so far patient tolerated this well. Electrolytes are normal. Creatinine is 1.7 with a BUN of 19. H&H is 8.2/27.1. White count 6900 with a normal differential and platelets of 466,000. Folic acid is low. Vitamin B12 is in the lower part of normal range. Iron saturation is low. Doppler venograms of the lower extremities are negative for deep venous thrombophlebitis. Ventilation perfusion lung scan shows no evidence of pulmonary emboli. 11/17/2016. The patient was seen today while having her wound dressing change done. We have discussed the case with Dr. Jerez and coordinated our care. This admission, we started the patient on Norvasc for pulmonary hypertension she is tolerating this well. Doppler venograms of the lower extremities were negative. We had ordered a Doppler venogram of the upper extremities to make sure that there was no clot. She has lymphedema of the right upper extremity secondary to history of breast cancer. She has been unwilling to proceed with upper extremity Doppler venograms secondary to this. That said, her VQ lung scan showed no evidence of pulmonary emboli. She did not tolerate a CT of the chest with PE protocol secondary to chronic renal failure. She has been seen in sleep consultation by Dr. Stapleton. HSAT is pending. 11/21/2016. The patient was seen today along with her nurse and patient caregiver services home. She is sitting up on the side of the bed today. She is breathing comfortably. She has no complaints of increased shortness of breath. She states she is going home today, but on review of records it appears this may be tomorrow. Her HSAT testing is pending at this time. Microbiology. Right leg wound culture has grown pseudomonas aeruginosa. Left leg wound cultures are also growing a gram-negative bonita. This is being managed by Dr. Jerez. She is on Teflaro. Medications have been reviewed. Labs have been reviewed. White count is 4700 with 52.8% segs; H&H 8.8/27.9; platelet count 246,000; creatinine 1.40, BUN 16, electrolytes are normal; vitamin D level is low at 7.3 consistent with vitamin D deficiency. Exam (Progress Note) - Constitutional Vitals: Period Temp Pulse Resp BP Sys/Castro Pulse Ox Last 24 Hr 97.6 F-100.2 F 64-70 18-20 100-120/43-68 94-99 Exam: Chest is clear Heart no gallop Abdomen is obese, but nontender and nondistended; bowel sounds are positive [address] Jerez; RUE with lymphedema Psychiatric oriented 3 Neurologic long-term motor function is intact Plan: Start vitamin D3 2000 international units daily. Continue Norvasc for pulmonary hypertension. HSAT testing as per Dr. Stapleton. See orders. Certainly, she will be suitable for discharge from our standpoint when okay with Dr. Jerez as he is managing her very extensive lower extremity wounds. Results - Labs CBC & BMP: 11/21/16 05:53 11/21/16 05:53
--- NOTE | 2016-11-21 10:50 | Hospitalist Progress Note ---
Assessment and Plan (1) Bilateral lower extremity edema Status: Chronic Current Visit: Yes (2) Open wound of both lower extremities with complication Status: Acute Assessment and plan: Surgery managing Possible discharge tomorrow Current Visit: Yes (3) Iron deficiency anemia Status: Acute Assessment and plan: Started on iron supplements, will continue at discharge Transfused 11/18/16 with appropriate response Remains stable Current Visit: Yes (4) ALMA (acute kidney injury) Status: Acute Assessment and plan: Remains stable, will need to follow-up with her pcp for bmp 1-2 weeks after discharge Current Visit: Yes (5) Pulmonary hypertension Status: Acute Assessment and plan: Pulmonary managing on norvasc Current Visit: Yes Hospitalist: Subjective Interval history: No acute events overnight. Reports that she feels better today. Pain is better controlled. Possible discharge tomorrow. Exam - Constitutional Vitals: Period Temp Pulse Resp BP Sys/Castro Pulse Ox Last 24 Hr 97.6 F-100.2 F 64-70 18-20 100-120/43-68 94-99 General appearance: over weight - Head Head exam: Present: normocephalic, atraumatic - Eye Eye exam: Present: EOMI Pupils: Present: GEOVANNI - ENT ENT exam: Present: normal exam - Expanded ENT Exam Mouth exam: Present: moist Teeth exam: Present: other (upper denture plate intact/large tongue) - Neck Neck exam: Present: normal inspection - Respiratory Respiratory exam: Present: clear to auscultation bilaterally. Absent: wheezes - Cardiovascular Cardiovascular exam: Present: regular rate and rhythm - GI/Abdominal GI/Abdominal exam: Present: normal bowel sounds, soft. Absent: tenderness, rebound - Extremities Exam Extremities exam: Present: normal inspection - Back Exam Back exam: Present: normal inspection - Neurological Exam Neurological exam: Present: alert, oriented X3 - Psychiatric Psychiatric exam: Present: normal affect, normal mood - Skin Skin exam: Present: warm, intact Results - Labs CBC & BMP: 11/21/16 05:53 11/21/16 05:53 Quality Measures - VTE Contraindication to Mechanical VTE Prophylaxis: Vascular Ulceration
[2016-11-21] MEDS: CHOLECALCIFEROL 1,000 UNIT TABLET PO SCH (10:59)
--- NOTE | 2016-11-21 13:28 | Physician Query Form ---
CLICK EDIT DOCUMENT TO SELECT QUERY ANSWER --> OK --> SIGN Ct Hoang RN Clinical Upsetter Setter Up W) [phone] (f) [phone] [email or web address] PROVIDERS: Make your selection(s) from the choices in EACH section by typing an "x" and enter comments in the comment section. Please use your independent medical judgment in providing your response. This request does not imply that any particular answer is desired or expected. CLINICAL INDICATORS: (Providers should not edit this section) Based on documentation of "anemia of chronic disease, likely due to insidious blood loss from her large chronic lower extremity wounds". H/H of 12/14. Pt. transfused with 2 units PRBC's. H/H of 03/24 post transfusion. Based on the above, could you clarify which of the following conditions you are evaluating, treating, and/or monitoring? ( ) Blood loss anemia ( ) acute (x ) chronic ( ) acute on chronic ( ) Acute blood loss anemia on baseline chronic anemia ( ) Acute blood loss anemia as a complication of a procedure ( ) Iron deficiency anemia not associated with blood loss ( ) Dilutional anemia due to IV fluids ( ) Anemia due to chemotherapy ( ) Anemia due to neoplastic disease ( ) Anemia due to chronic kidney disease ( ) Pernicious anemia ( ) Aplastic anemia ( ) Hemolytic anemia ( ) immune ( ) non-immune - please specify cause: ( ) Anemia due to other condition, please specify: ( ) Clinically unable to determine COMMENTS: PLEASE ALSO DOCUMENT RESPONSE IN PROGRESS NOTES AND/OR DISCHARGE SUMMARY Use of terms such as suspected, likely, or probable (associated with a specific diagnosis that is being evaluated, monitored, or treated as if it exists) are acceptable and can be restated in the discharge summary if not ruled out. MTDD
[2016-11-21] MEDS: ACETIC ACID 0.25% IRRIGATION 1,000 ML BOTTLE IRRIG SCH ×2 (14:23→21:15)
[2016-11-21] MEDS: SILVER SULFADIAZINE 1% CREAM 25 GM TUBE TOP SCH (14:23)
--- NOTE | 2016-11-21 15:55 | Sleep Medicine Progress Note ---
Assessment and Plan (1) Unspecified sleep apnea Status: Acute Assessment and plan: Ms. Swan tested negative for obstructive sleep apnea on recent HSAT. However, there can be false positive results with this testing and she also reports not sleeping well on the night of the study. I recommend that she be formally evaluated by overnight polysomnography in the sleep lab. She verbalized understanding and states that she will schedule this once she is back home and settled. Current Visit: Yes Qualifiers: Sleep apnea type: unspecified type Qualified Code(s): G47.30 - Sleep apnea , unspecified Sleep Medicine Subjective Interval history: Ms. Swan is a pleasant 75-year-old female who recently underwent a HSAT to rule out underlying sleep apnea. The results of the HST were negative with a overall AHI of 1.6 and oxygen desaturations to 90%. However, she states that she did not sleep well on the night of the study and has not slept well during her hospital stay in general. She is being discharged tomorrow and plans to go to a swing bed or extended care facility to regain her strength. Exam (Progress Note) - Constitutional Vitals: Period Temp Pulse Resp BP Sys/Castro Pulse Ox Last 24 Hr 98.6 F-100.2 F 53-70 18-20 100-120/43-71 95-98 General appearance: morbidly obese - Head Head exam: Present: normocephalic, atraumatic - Respiratory Respiratory exam: Present: clear to auscultation bilaterally. Absent: rales, rhonchi, wheezes - Cardiovascular Cardiovascular exam: Present: regular rate and rhythm - GI/Abdominal GI/Abdominal exam: Present: normal bowel sounds, soft. Absent: tenderness - Extremities Exam Extremities exam: Present: edema - Neurological Exam Neurological exam: Present: alert, oriented X3 - Psychiatric Psychiatric exam: Present: normal affect - Skin Skin exam: Present: warm, dry Results - Labs CBC & BMP: 11/21/16 05:53 11/21/16 05:53
[2016-11-21] MEDS: DOCUSATE SODIUM 100 MG CAPSULE PO SCH (21:15)
[2016-11-22] MEDS: CEFTAROLINE 600 MG in SODIUM CHLORIDE 0.9% 100 ML IV SCH ×2 (02:53→14:03)
[2016-11-22] MEDS: ACETAMINOPHEN 500 MG TABLET PO SCH ×2 (07:04→13:41)
[2016-11-22] MEDS: FUROSEMIDE 40 MG TABLET PO SCH (08:37)
[2016-11-22] MEDS: CHOLECALCIFEROL 1,000 UNIT TABLET PO SCH (08:54)
[2016-11-22] MEDS: IRON (CARBONYL)/VIT C/B12/FA TABLET PO SCH (08:54)
[2016-11-22] MEDS: METOPROLOL TARTRATE 50 MG TABLET PO SCH (08:54)
[2016-11-22] MEDS: amLODIPine 5 MG TABLET PO SCH (08:54)
[2016-11-22] MEDS: SILVER SULFADIAZINE 1% CREAM 25 GM TUBE TOP SCH (08:56)
[2016-11-22] MEDS: ACETIC ACID 0.25% IRRIGATION 1,000 ML BOTTLE IRRIG SCH (08:56)
[2016-11-22] MEDS ORDERED: PANTOPRAZOLE 40 MG TABLET PO SCH (09:00)
--- NOTE | 2016-11-22 09:59 | Pulmonology Progress Note ---
Pulmonary - PN: Subj Interval history: Notes have been reviewed. I agree with your plans. I will sign off. Reconsult me if you need me peer Exam (Progress Note) - Constitutional Vitals: Period Temp Pulse Resp BP Sys/Castro Pulse Ox Last 24 Hr 97.9 F-99.5 F 53-70 18-20 109-141/52-71 96-100 Results - Labs CBC & BMP: 11/21/16 05:53 11/21/16 05:53
--- NOTE | 2016-11-22 15:19 | Discharge Summary ---
Hospital Course - Hospital Course Hospital Course: Discharge summary: Discharge diagnosis: 1. Chronic venous stasis disease with ulcerations both lower extremities 2. Large ulcerations both legs secondary to chronic venous stasis disease 3. Pseudomonas wound infection of the wounds. 4. Pulmonary hypertension 5. Anemia of chronic disease 6. Right upper extremity lymphedema secondary to surgery for right breast cancer Consultants Dr. Sotomayor and Dr. Grigsby Surgeon Dr. Jerez Nurse practitioner Rosalba Romero, [employer] ACNP Brief summary: 75-year-old -[place] female who came to see us because of chronic nonhealing ulcers that are circumferential around both ankles in the office. These were large ulcer with good bit of eschar over from that were circumferential around the ankle with obvious chronic venous stasis disease and marked swelling of the lower extremities. Cultures were done and we felt we needed to get her in for some IV antibiotics and get this thing cleaned up. She finally consented to come in 2 days later at which time we start her on some IV antibiotics and get cultures that we grew out Pseudomonas. She has been on treatment better in 10 days now with this and it seems better at this time but will probably send her out on some oral antibiotics and continued treatment. We will try to keep her off her feet as much as possible get some compressive therapy to the legs at this time to control the edema and not permit her to sit hanging them down during this time. This is improved the swelling the lower extremities and we have seen some epithelialization occurring around the edges of the wound as well as some islands within the wound bed itself. There is still some sloughing material in the center of the wound bed that he cleans up fairly well but it is tender and uncomfortable to her at times. We had wound care progressing at this point time to get things under control and will probably try to send her to a swing bed for additional care to this. She is needs good compressive therapy at this point time she should not be sitting with his legs hanging down. Anytime she sits she needs to have the legs elevated as much as possible. Walking is okay but she is a little weak and probably need some physical therapy to get a little more functional since she has to take care of her at home. The patient had to be transfused once here her create got down to around 22 and we transfuse her 2 units the last one is 29 at this time. She is better her stools for occult blood were negative she did refuse colonoscopy at this time. We are not detecting any other reason for her anemia and it appears to be related to chronic disease possibly weeping and bleeding from these legs ulcers since it is so large. Will have to observe this closely and keep her on some iron like she has been on see if we can keep this under control although she may require transfusions from time to time. While patient was here, cardiology was consulted to see her we did not think that she had significant coronary artery disease with a ejection fraction 65% but felt like that she might have pulmonary hypertension. Dr. Grigsby was then consulted who put her on Norvasc at this time. Did a CT chest that was pretty much negative for any pulmonary emboli and ultrasounds of the arm and legs were also negative for any clots. At this point no further treatment is required except as good observational therapy. Patient says had breast cancer and has had a mastectomy on the right side possible radiation is difficult to say with us from her surgery which involved an axillary dissection she has developed lymphedema of the right upper extremity. She has had no recent infection in it but it does remain fairly's swollen at this time difficult to get down. She is little reluctant to wear Demetrius is only at this point time but has a sleeve at home this could be used to help manage this process. At this point will try to transfer to swing bed at [facility] and try to hopefully see with a bit of time if she will get a little bit better improve her general status and was gained a little more healing time for these legs. We get these ulcers cleaned up to a better bed it is negative for any cultures skin grafting could be considered. If not just good care and over time that it may well heal without needing grafting. - Time spent with patient Time with patient DS: Less than 30 minutes Diagnosis - Discharge Diagnosis (1) Open wound of both lower extremities with complication Status: Chronic (2) Lymphedema of right arm Status: Chronic (3) Anemia of chronic disease Status: Chronic (4) Pulmonary hypertension Status: Chronic (5) Stasis dermatitis with venous ulcer of lower extremity due to chronic peripheral venous hypertension Status: Chronic Specialty Discharge - Follow Up or Referrals Follow up with: Wisam Jerez MD [Physician] - 1 Month - Speciality Discharge Instructions Surgery Instructions: 1. Patient will need daily wound care to the ulcers of the legs. 2. She may shower if she wants to sit in the shower and shower completely off. 3. Good compressive therapy to the lower extremities are important. 4. Need to watch her blood count because she could need additional transfusions if her crit gets low enough. 5. She needs to avoid sitting with legs hanging down for extended periods of time Discharge Plan - Discharge Data Disposition: Swing Bed, Hos Based, [facility] Condition at Discharge: Stable Discharge Diet: diabetic diet (1800-calorie ADA daily) Activity: ambulate only with your walker, as per physical therapy, increase activity as tolerated, no prolonged standing Hygiene: may shower Weight Bearing at Discharge: full weight bearing Driving: not until seen by doctor Contact your physician if you experience:: fever over 101, Redness or swelling, Shortness of breath, Bleeding, pain uncontrolled by pain medications Wound / Dressing Care Instructions: Wound care to the ulcers of both lower extremities daily. 1. Wash with Hibiclens--may shower. 2. Irrigate each wound with 30 cc of 0.25% acetic acid solution. 3. Apply large sheets of Aquacel Ag gauze to the the wounds. 4. Cover each Aquacel with Adaptic or Mepitel. 5. Aquaphor to the rest of the foot heel and leg. 6. Heel pad to the heel. 7. Wrap both lower extremities with cast padding and Coban and from the toes to the knees. 8. Avoid any prolonged sitting with legs hanging down. 9. Patient may ambulate with assistance. 10. Foam boots to the legs while in bed. Right upper extremity. Wash with Hibiclens. Aquaphor to the hand forearm and arm. Have patient bring her compressive sleeve and try to get this on her at this time. - Discharge Medications New Acetaminophen Tab [Tylenol Tab] 1,000 mg PO Q8HR tablet Acetic Acid 0.25% Irrigation 50 ml IRRIG DAILY #300 ml HYDROcodone/ACETAMIN 10-325 [[place] 10-325] 1 tablet PO Q4H PRN #60 tablet PRN Reason: Pain Moderate (4-7) Skin Healing Oint (Aquaphor) [Aquaphor] 1 applic TOP PRN PRN applic PRN Reason: Dry Skin Skin Healing Oint (Aquaphor) [Aquaphor] 1 applic TOP PRN PRN applic PRN Reason: Dry Skin amLODIPine [Norvasc] 5 mg PO DAILY #60 tablet traZODone [Desyrel] 25 mg PO BEDTIME PRN tablet PRN Reason: Insomnia Continue Clindamycin Cap [Cleocin Cap] 300 mg PO QID Furosemide Tab [Lasix Tab] 40 mg PO DAILY Potassium Chloride [Klor-Con M20] 20 meq PO DAILY Meloxicam [Mobic] 15 mg PO DAILY Iron,Carbonyl/Ascorbic Acid [Icar-C Tablet] 1 tablet PO DAILY HYDROcodone/ACETAMIN 10-325 [[place] 10-325] 1 tablet PO BID PRN PRN Reason: Pain Metoprolol Tartrate 50 mg PO BID - Follow Up or Referral - Forms/Instructions Exam - Constitutional Vitals: Period Temp Pulse Resp BP Sys/Castro Pulse Ox Last 24 Hr 97.9 F-100.0 F 57-70 16-20 92-141/52-68 96-100 General appearance: mild distress - Head Head exam: Present: normal inspection - ENT ENT exam: Present: normal exam - Neck Neck exam: Present: normal inspection - Respiratory Respiratory exam: Present: clear to auscultation bilaterally, rales - Cardiovascular Cardiovascular exam: Present: regular rate and rhythm - GI/Abdominal GI/Abdominal exam: Present: hypoactive bowel sounds, soft. Absent: tenderness - Extremities Exam Extremities exam: Present: edema (Bilateral edema of both lower extremities improved), other (Circumferential ulceration of the right lower extremity at the level of the ankle with multiple islands of epithelialization. Ulceration of the left lower extremity circumferential with islands of epithelialization in the wound bed and some slough over the remaining granulating base. Marked edema of the right upper extremity secondary to lymphedema from cancer surgery) - Back Exam Back exam: Present: normal inspection - Neurological Exam Neurological exam: Present: alert, oriented X3, CN II-XII intact - Psychiatric Psychiatric exam: Present: normal affect, normal mood, anxious - Skin Skin exam: Present: normal color, warm, dry Discharge Results Procedures and tests throughout hospitalization: Pending Orders 11/13/16 10:41 Occult Blood, Stool Routine 11/15/16 09:55 Occult Blood, Stool Routine 11/18/16 19:19 Occult Blood, Stool Routine DS: Provider Date of admission: 11/11/16 08:18 Primary care physician: Radu Bush Attending physician on admission: Wisam Jerez MD Consults: 11/10/16 13:16 Consult to Physician [CONS] Routine Comment: Consulting Provider: [facility] Consulting Provider Notified: Yes When should Consulting Provider be notified: Now Person Notified: jacobo chapa called Date Notified: 11/10/16 Time Notified: 14:51 Consult Notification Comment: Medical management-Anemia of chronic disease Admitted for cellulitis of BLE with chronic venous leg ulcerations, infection; RUE lymphangitis/cellulitis, postmastectomy Consult to Wound Care - [place] [CONS] Routine Reason for Wound Care: Wound Care Management 11/10/16 15:24 Consult to Pastoral Services [CONS] Routine Comment: Pastoral Screen: Request Toll Settlement Clerk Visit Pastoral Screen Source of Request: Patient 11/13/16 11:17 Consult to Occupational Therapy [CONS] Routine Reason for Occupational Therapy: Lymphedema Consult Comment: Pt w/postmastectomy lymphedema; resolving cellulitis. Please make recs 11/14/16 13:00 Consult to Physician [CONS] Routine Comment: pulmonary htn Consulting Provider: Consulting Provider Notified: Yes When should Consulting Provider be notified: Now Consult to Specialist Group: Cardiology When should Consulting Provider be notified: Now Person Notified: susana called Date Notified: 11/14/16 Time Notified: 15:14 11/14/16 21:58 Consult to Physician [CONS] Routine Comment: pulmonary hypertension Consulting Provider: Brain Zavala Consulting Provider Notified: Yes When should Consulting Provider be notified: In am Person Notified: dr. kevin nath Date Notified: 11/15/16 Time Notified: 09:05 Consult Notification Comment: dr. zavala will see patient. talked with dr. kevin nath 11/15/16 09:38 Consult to Physician [CONS] Routine Comment: Pulmonary hypertension no valvular disease Consulting Provider: Consult to Specialist Group: Pulmonology When should Consulting Provider be notified: Now 11/16/16 09:24 Consult to Physician [CONS] Routine Comment: sleep eval; pulm HTN, obesity Consulting Provider: Luz Stapleton Consulting Provider Notified: Yes When should Consulting Provider be notified: Now Person Notified: kaci called Date Notified: 11/16/16 Time Notified: 12:52 11/17/16 09:22 Consult to Occupational Therapy [CONS] Routine Reason for Occupational Therapy: Lymphedema Consult Comment: SECOND REQUEST-Please evaluate and treat. 11/21/16 08:44 Consult to Case Mgmt/Social Srvs [CONS] Routine Reason for Case Mgmt/Social Srvs: Discharge Planning Swingbed/SNF/Care Home Home Health Equipment Consult Comment: see if patient is eligible for [facility] swing bed versus resume HH Discharging clinician: Wisam Jerez MD Expected date of discharge: 11/22/16
[2016-11-22 16:20] VITALS: BP 99/58
== END 2016-11-22 18:24 | disposition swing bed (61) | DRG 300 ==
LOC: N.3E → OBSVTOIN 11-10 13:37
PROVIDERS: ADMIT Specialist; ATTEND Specialist

== ENCOUNTER 2017-02-22 10:46 | Inpatient (IN) ==
[2017-02-22] MEDS ORDERED: ONDANSETRON 4 MG/2 ML VIAL IV PRN (10:54)
[2017-02-22] MEDS ORDERED: CHLORHEXIDINE 4% SOLN 118 ML BOTTLE TOP ONE (11:02)
[2017-02-22 12:20] LABS: Basophils % 0.4 % (0.0-0.8); Eosinophils # 0.2 10*3/uL (0.0-0.87); Eosinophils % 2.9 % (0.00-10.9); Hematocrit 29.3 VOL% (35.7-47.0); Hemoglobin 9.1 GM/DL (12.0-16.0); Immature Granulocytes % 0.4 %; Immature Granulocytes Absolute 0.03 #; Lymphocytes # 1.2 10*3/uL (1.4-4.0); Lymphocytes % 15.3 % (21.3-54.2); Mean Corpuscular HGB Conc 31.1 GM/DL (32-36); Mean Corpuscular Hemoglobin 28 PG (27-34); Mean Corpuscular Volume 91.6 FL (87-102); Mean Platelet Volume 8.3 FL (9.6-12.0); Monocytes # 0.6 10*3/uL (0.11-0.8); Monocytes % 7.2 % (1.7-12.7); Neutrophils # 5.9 10*3/uL (1.4-7.4); Neutrophils % 73.8 % (38.7-73.9); Platelet Count 423 T/CUMM (130-400); Red Cell Distribution Width 13.5 % (9.3-17.3)
[2017-02-22 12:51] LABS: Alanine Aminotransferase 13 U/L (13-56); Albumin 2.4 G/DL (3.4-5.0); Alkaline Phosphatase 85 U/L (45-117); Aspartate Amino Transferase 10 U/L (0-37); Bilirubin,Total < 0.39 MG/DL (0.2-1.0); Blood Urea Nitrogen 22 MG/DL (7-18); Calcium 8.2 MG/DL (8.5-10.1); Glucose 84 MG/DL (74-106); Osmolality,Calculated 284.1 MOS/KG (273-304); Sodium 142 MMOL/L (136-145); Total Protein 5.9 G/DL (6.4-8.3)
[2017-02-22] MEDS ORDERED: VANCOMYCIN INJ 1,750 MG in SODIUM CHLORIDE 0.9% 500 ML IV SCH (16:00)
--- NOTE | 2017-02-22 16:27 | Infectious Disease Consult ---
Assessment and Plan (1) Bilateral lower extremity edema Status: Chronic Current Visit: No (2) Lymphedema of right arm Status: Chronic Current Visit: No (3) Open wound of both lower extremities with complication Status: Chronic Assessment and plan: Infected venous stasis ulcers to both distal legs. Infection is polymicrobial. Recommendations: 1. Agree with meropenem but since we are treating Pseudomonas as well, increase dose to 2 g every 8 hours 2. Instead of vancomycin I am going to use linezolid for this patient. She has renal insufficiency and is at high risk for acute deterioration. 3. Monitor CBC while she is on linezolid 4. Wound care 5. Blood cultures for completeness sake Thank you very much for the consult. Will follow. Current Visit: No (4) Stasis dermatitis with venous ulcer of lower extremity due to chronic peripheral venous hypertension Status: Chronic Current Visit: No (5) Chronic renal insufficiency Status: Acute Current Visit: Yes History of Present Illness Chief complaint: Infected leg wounds History of present illness: Ms. Swan is a 76 year old female with history of chronic ulceration to both legs presented to hospital because of acute infection per evaluation by Dr. Jerez 's office. She had not had fever or other constitutional symptoms. She is in hospital just over a month ago for same problem. Home Medications Medication Instructions Recorded Confirmed Type Furosemide Tab [Lasix Tab] 40 mg PO DAILY 11/10/16 02/22/17 History Iron,Carbonyl/Ascorbic Acid 1 tablet PO DAILY 11/10/16 02/22/17 History [Icar-C Tablet] Meloxicam [Mobic] 15 mg PO DAILY 11/10/16 02/22/17 History Metoprolol Tartrate 50 mg PO BID 11/10/16 02/22/17 History Potassium Chloride [Klor-Con M20] 20 meq PO DAILY 11/10/16 02/22/17 History Acetaminophen Tab [Tylenol Tab] 1,000 mg PO Q8HR tablet 11/22/16 02/22/17 Rx HYDROcodone/ACETAMIN 10-325 [[place] 1 tablet PO Q4H PRN #60 tablet 11/22/1602/22 Rx 10-325] Ibuprofen Tab [Motrin Tab] 200 mg PO TID #60 tablet 11/22/16 02/22/17 Rx amLODIPine [Norvasc] 5 mg PO DAILY #60 tablet 11/22/16 02/22/17 Rx Allergies Allergy/AdvReac Type Severity Reaction Status Date / Time Penicillins AdvReac Intermediate RASH Verified 11/10/16 14:48 povidone-iodine AdvReac Intermediate RASH Verified 11/10/16 14:48 [From Betadine] soap [From Betadine] AdvReac Intermediate RASH Verified 11/10/16 14:48 12 point system: reviewed and no additional remarkable complaints except as stated (Severe pain to her legs, chronic edema of right upper extremity following mastectomy for breast cancer; rest of compressive review of systems negative apart from those mentioned in HPI.) Medical,Surgical,& Family Hx - Medical History Cardio: History of: Hypertension Musculoskeletal: History of: Musculoskeletal Problems (Bilateral knee pain) Reproductive: History of: Breast Cancer Other: History of: Miscellaneous Medical Problems (lymphedema) - Surgical History Reproductive Surgeries: Surgical HX of;: Breast Surgery (Right mastectomy in 1988) - Family History Family History: Reports;: Family Heart Disease (Father), Family Hypertension ( Mother) - Social History Smoking Status: Never smoker Frequency of Alcohol Use: None Type of Drug Use: None Infectious Disease Exam H&P - Constitutional Vitals: Vital Signs Temp Pulse Resp BP Pulse Ox 98.2 F 91 H 20 130/75 96 02/22/17 11:52 02/22/17 11:52 02/22/17 11:52 02/22/17 11:52 02/22/17 11:52 Intake and Output 02/22/17 02/22/17 02/22/17 07:59 15:59 23:59 Intake Total 240 / 240 Output Total 500 / 500 Balance -260 / -260 Intake: Oral 240 / 240 Output: Urine 500 / 500 Other: # Bowel Movements 0 Weight 115.847 kg Patient Weight 02/22/17 23:59 Weight 115.847 kg Exam: General: Patient comfortable HEENT: Mucous membranes pale and moist, anicteric acyanotic, GEOVANNI, no oral exudates Neck: Supple, no thyroid gland enlargement Respiratory system: Breath sounds vesicular, no crepitations or wheezes Cardiovascular: Normal S1 and S2, no murmurs appreciated Abdomen: Normal bowel sounds, obese, nontender throughout Genitourinary: No suprapubic pain or bladder distention Extremities: Severe right upper extremity edema, moderate to severe bilateral lower extremity edema Skin: Skin of distal legs hyperpigmented. She has almost circumferential shallow ulceration about both legs distal third. Mostly granulating tissue but some sloughy material interspersed Reports - Labs CBC & BMP: 02/22/17 12:02 02/22/17 12:02 Labs: Laboratory Results - last 24 hr 02/22/17 02/22/17 12:02 12:02 WBC 8.0 RBC 3.20 L Hgb 9.1 L Hct 29.3 L MCV 91.6 MCH 28 MCHC 31.1 L RDW 13.5 Plt Count 423 H MPV 8.3 L Neut % (Auto) 73.8 Lymph % (Auto) 15.3 L Cloud % (Auto) 7.2 Eos % (Auto) 2.9 Baso % (Auto) 0.4 Neut # (Auto) 5.9 Lymph # (Auto) 1.2 L Cloud # (Auto) 0.6 Eos # (Auto) 0.2 Baso # (Auto) 0.0 Immature Gran % 0.4 Nucleated RBC % 0.0 Immature Gran # 0.03 Nucleated RBCs # 0.00 Immature Plt Fraction 0.0 Sodium 142 Potassium 4.0 Chloride 109 H Carbon Dioxide 26 Anion Gap 11.0 BUN 22 H Creatinine 1.50 H GFR Calculation 0 BUN/Creatinine Ratio 14.00 Glucose 84 Calculated Osmolality 284.1 Calcium 8.2 L Total Bilirubin < 0.39 AST 10 ALT 13 Alkaline Phosphatase 85 Total Protein 5.9 L Albumin 2.4 L Globulin 3.5 Albumin/Globulin Ratio 0.6 L - Reports Microbiology: Cultures from Dr. Briones's office reviewed with Pseudomonas sensitive to ceftazidime, cefepime, Zosyn, meropenem; Serratia relatively sensitive; Enterococcus faecalis sensitive to ampicillin and vancomycin
--- NOTE | 2017-02-22 16:50 | General Surg History&Physical ---
Assessment and Plan - Time spent with patient Time spent with patient: Greater than 30 minutes (1) Cellulitis of both lower extremities Status: Acute Assessment and plan: 02/22/17 We will plan to admit for IV antibiotics and wound care. Compliance has been an issue, and we now have increased drainage, most likely due to infection. Cultures have been done and we appreciate Dr Chan's help. Certainly the legs have improved somewhat from her past visit but if we can treat the current infection we may see them continue to healing. Current Visit: No (2) Hypertension Status: Acute Assessment and plan: 02/22/17-We will plan to continue her antihypertensives and watch closely; should she need medical management we will ask for a hospitalist consult. Current Visit: No (3) Anemia of chronic disease Status: Chronic Assessment and plan: 02/22/17 Anemia is stable at this time but her legs actively bleed when we change the dressings. Currently she is asymptomatic. I believe an anemia workup was done on her last visit; we will check the records. We will monitor legs and plan transfusion as indicated. Current Visit: No (4) Chronic renal insufficiency Status: Acute Assessment and plan: 02/22/17 Chronic renal insufficiency-this too is slightly worse than on her last admission. Her chronic infection is likely contributing, and I have explained to her that once we get her legs healed, she may see her kidney function improve as well. We will hydrate gently and watch her labs, getting a nephrology consult if needed. Appreciate Dr Chan's choice of antibiotics, and we agree with avoiding Vancomycin if possible. 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 This is stable. She has a gauntlet and sleeve she wears at home, and we consulted OT on her last visit with little involvement or participation from the patient. We could look at MLD and/or wrappings as an option if she were willing but she seems asymptomatic, there is nothing to suggest lymphangitis, and I doubt she would be compliant. We will follow this along unless there are changes. Current Visit: No History of Present Illness Chief complaint: "My legs hurt so bad and drain all the time." History of present illness: Ms. Swan is a 76 year old female who has failed outpatient treatment for bilateral lower extremity wounds. These are primarily venous stasis in origin, however, she does have secondary superimposed lymphedema, which complicates her care. She was previously treated earlier this year when she was initially referred to us for these wounds by her primary care physician in [place], Dr Radu Browning. At that time, they were much larger and were growing only Pseudomonas, but had failed outpatient treatment due to noncompliance and overwhelming difficulty of her home health nurses to manage such large volumes of drainage. She was admitted to this facility and treated for approximately 12 days, with a good response, and was discharged home. She had done fairly well, despite difficulty with getting her to comply with our orders for wound care, until about 2 weeks ago when the wounds began to deteriorate and have increased drainage. Suspecting resurgence of the Pseudomonas, we did not culture but changed to Acetic Acid and Silvadene at that time, but she failed to get her prescriptions filled and was refusing her care as ordered. [facility] was then instructed to get a repeat wound culture, even though we feared it may not be entirely accurate, yet we needed some type of data to steer her care. They managed to get as accurate a surface culture as possible under the circumstances , and found that she now had not only the Pseudomonas but also Serratia marcescens and Enterococcus species. We recommended admission at that time to both treat the wounds and administer antibiotics. It has taken almost 2 weeks to get her to consent to treatment, but today she is agreeable to admission and care. Her wounds today are actually much smaller than when we first began treating her. Home Medications Medication Instructions Recorded Confirmed Type Furosemide Tab [Lasix Tab] 40 mg PO DAILY 11/10/16 02/22/17 History Iron,Carbonyl/Ascorbic Acid 1 tablet PO DAILY 11/10/16 02/22/17 History [Icar-C Tablet] Meloxicam [Mobic] 15 mg PO DAILY 11/10/16 02/22/17 History Metoprolol Tartrate 50 mg PO BID 11/10/16 02/22/17 History Potassium Chloride [Klor-Con M20] 20 meq PO DAILY 11/10/16 02/22/17 History Acetaminophen Tab [Tylenol Tab] 1,000 mg PO Q8HR tablet 11/22/16 02/22/17 Rx HYDROcodone/ACETAMIN 10-325 [[place] 1 tablet PO Q4H PRN #60 tablet 11/22/1602/22 Rx 10-325] Ibuprofen Tab [Motrin Tab] 200 mg PO TID #60 tablet 11/22/16 02/22/17 Rx amLODIPine [Norvasc] 5 mg PO DAILY #60 tablet 11/22/16 02/22/17 Rx Allergies Allergy/AdvReac Type Severity Reaction Status Date / Time Penicillins AdvReac Intermediate RASH Verified 11/10/16 14:48 povidone-iodine AdvReac Intermediate RASH Verified 11/10/16 14:48 [From Betadine] soap [From Betadine] AdvReac Intermediate RASH Verified 11/10/16 14:48 Medical,Surgical,& Family Hx - Medical History Cardio: History of: Hypertension Musculoskeletal: History of: Musculoskeletal Problems (Bilateral knee pain) Hematology: History of: Anemia Reproductive: History of: Breast Cancer Other: History of: Miscellaneous Medical Problems (lymphedema) - Surgical History Reproductive Surgeries: Surgical HX of;: Breast Surgery (Right mastectomy in 1988) - Family History Family History: Reports;: Family Heart Disease (Father), Family Hypertension ( Mother) - Social History Smoking Status: Never smoker Frequency of Alcohol Use: None Type of Drug Use: None Exam - Constitutional Vitals: Period Temp Pulse Resp BP Sys/Castro Pulse Ox Last 24 Hr 97.0 F-98.2 F 70-91 18-20 130-150/68-75 96-98 General appearance: mild distress, over weight, other (She is a pleasant but sometimes very emotional lady who is anxious and concerned about her legs; she is in a moderate amount of pain, given her recent dressing change and examination of her lower leg wounds but says the legs 'look a lot better.') - Head Head exam: Present: normocephalic - Eye Eye exam: Present: EOMI Pupils: Present: GEOVANNI - Neck Neck exam: Absent: lymphadenopathy - Respiratory Respiratory exam: Absent: rales, wheezes - Cardiovascular Cardiovascular exam: Present: RRR - Breasts Breasts: other (Right previous MRM; Left breast grossly without masses or lumps) - GI/Abdominal GI/Abdominal exam: Present: hypoactive bowel sounds, soft. Absent: distended, guarding - Extremities Exam Extremities exam: Present: other (BLE with large, circumferential but superficial ulcerations that have beefy red ulcers present; there are some epithelial islands present with friable tissue and easy bleeding. She has depigmentation along the lower leg and ankle regions. Calves are soft and compressible; pulses are 2+ bilaterally. There is no advancing erythema or ischemic change. Edema is 2+ with pitting and there are moderate chronic lymphedematous skin changes of the intact lower leg and foot skin. Right upper extremity with large amount of postmastectomy lymphedema. No redness or tenderness. ) - Neurological Exam Neurological exam: Present: alert, oriented X3 - Constitutional Constitutional: Present: fatigue - Musculoskeletal Musculoskeletal: Present: other (BLE edema) Quality Measures - VTE Contraindication to Pharmacological VTE Prophylaxis: Extremities with Hemorrhage Contraindication to Mechanical VTE Prophylaxis: Local Inflammation Results - Labs CBC & BMP: 02/22/17 12:02 02/22/17 12:02 Lab Results: I have reviewed the past 24 hour labs (H&H is low; Creatinine slightly high at 1.5)
[2017-02-22] MEDS: DEXTROSE 5% NACL 0.45% 1,000 ML IV SCH (17:16)
[2017-02-22] MEDS: MEROPENEM 1,000 MG in SODIUM CHLORIDE 0.9% 100 ML IV SCH ×2 (18:06→19:05)
[2017-02-22] MEDS: MEROPENEM 2,000 MG in SODIUM CHLORIDE 0.9% 100 ML IV SCH (19:47)
[2017-02-22] MEDS: LINEZOLID 600 MG TABLET PO SCH (20:52)
[2017-02-22] MEDS: DOCUSATE SODIUM 100 MG CAPSULE PO SCH (20:52)
[2017-02-22] MEDS: ACETIC ACID 0.25% IRRIGATION 1,000 ML BOTTLE IRRIG SCH (20:55)
[2017-02-23] MEDS: MEROPENEM 2,000 MG in SODIUM CHLORIDE 0.9% 100 ML IV SCH ×3 (03:13→17:02)
[2017-02-23 08:47] LABS: Alanine Aminotransferase < 9 U/L (13-56); Albumin 1.9 G/DL (3.4-5.0); Alkaline Phosphatase 58 U/L (45-117); Aspartate Amino Transferase 8 U/L (0-37); Blood Urea Nitrogen 19 MG/DL (7-18); Calcium 7.4 MG/DL (8.5-10.1); Glucose 106 MG/DL (74-106); Osmolality,Calculated 284.1 MOS/KG (273-304); Potassium 3.9 MMOL/L (3.5-5.1); Sodium 142 MMOL/L (136-145); Total Protein 4.7 G/DL (6.4-8.3)
[2017-02-23] MEDS ORDERED: SILVER SULFADIAZINE 1% CREAM 25 GM TUBE TOP SCH (09:00)
--- NOTE | 2017-02-23 09:05 | General Surgery Progress Note ---
Assessment and Plan (1) Cellulitis of both lower extremities Status: Acute Assessment and plan: 02/23/2017. Bilateral lower extremity cellulitis stable. Appreciate Dr. Her; we will continue with IV antibiotics through the weekend and reassess next week her local care has been started, and she is tolerating this fairly well. She does need elevation and compression, and will see how well she is able to be compliant with this as in-patient. 02/22/17 We will plan to admit for IV antibiotics and wound care. Compliance has been an issue, and we now have increased drainage, most likely due to infection. Cultures have been done and we appreciate Dr Chan's help. Certainly the legs have improved somewhat from her past visit but if we can treat the current infection we may see them continue to healing. Current Visit: No (2) Hypertension Status: Acute Assessment and plan: 02/22/17-We will plan to continue her antihypertensives and watch closely; should she need medical management we will ask for a hospitalist consult. Current Visit: No (3) Anemia of chronic disease Status: Chronic Assessment and plan: 02/23/2017. Anemia of chronic disease. H&H is stable. No active bleeding from her wounds; we will continue to watch with serial labs. 02/22/17 Anemia is stable at this time but her legs actively bleed when we change the dressings. Currently she is asymptomatic. I believe an anemia workup was done on her last visit; we will check the records. We will monitor legs and plan transfusion as indicated. Current Visit: No (4) Chronic renal insufficiency Status: Acute Assessment and plan: 02/23/2017. Chronic renal insufficiency, stable her creatinine is 1.[address] Chan to suggest her antibiotics, and we will substitute Zyvox for vancomycin. Continue to watch with serial BMPs. She has not had significant renal failure in the past; we will also monitor her blood pressure 02/22/17 Chronic renal insufficiency-this too is slightly worse than on her last admission. Her chronic infection is likely contributing, and I have explained to her that once we get her legs healed, she may see her kidney function improve as well. We will hydrate gently and watch her labs, getting a nephrology consult if needed. Appreciate Dr Chan's choice of antibiotics, and we agree with avoiding Vancomycin if possible. 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 This is stable. She has a gauntlet and sleeve she wears at home, and we consulted OT on her last visit with little involvement or participation from the patient. We could look at MLD and/or wrappings as an option if she were willing but she seems asymptomatic, there is nothing to suggest lymphangitis, and I doubt she would be compliant. We will follow this along unless there are changes. Current Visit: No Subjective Patient reports: Present: pain is less, tolerating a regular diet. Absent: nausea, vomiting, shortness of breath Exam - Constitutional Vitals: Period Temp Pulse Resp BP Sys/Castro Pulse Ox Last 24 Hr 97.0 F-99.0 F 70-91 16-20 114-158/58-75 95-100 General appearance: no acute distress - Extremities Exam Extremities exam: Present: other (Bilateral lower extremity edema well controlled. Her wounds are moist without oozing. They actually look to be a little bit better today, with less maceration.) Results - Labs CBC & BMP: 02/22/17 12:02 02/23/17 07:36 Lab Results: I have reviewed the past 24 hour labs (Creatinine down to 1.2) Quality Measures - VTE Contraindication to Pharmacological VTE Prophylaxis: Extremities with Hemorrhage Contraindication to Mechanical VTE Prophylaxis: Local Inflammation
[2017-02-23] MEDS: PANTOPRAZOLE 40 MG TABLET PO SCH (09:37)
[2017-02-23] MEDS: LINEZOLID 600 MG TABLET PO SCH ×2 (09:37→20:24)
[2017-02-23] MEDS: ACETIC ACID 0.25% IRRIGATION 1,000 ML BOTTLE IRRIG SCH ×2 (09:37→20:15)
[2017-02-23] MEDS: DOCUSATE SODIUM 100 MG CAPSULE PO SCH ×2 (09:37→20:24)
[2017-02-23 09:44] LABS: Basophils % 0.1 % (0.0-0.8); Eosinophils # 0.1 10*3/uL (0.0-0.87); Eosinophils % 1.5 % (0.00-10.9); Hematocrit 23.9 VOL% (35.7-47.0); Immature Granulocytes % 0.5 %; Immature Granulocytes Absolute 0.05 #; Lymphocytes # 1.3 10*3/uL (1.4-4.0); Lymphocytes % 14.4 % (21.3-54.2); Mean Corpuscular HGB Conc 31.8 GM/DL (32-36); Mean Corpuscular Hemoglobin 29 PG (27-34); Mean Corpuscular Volume 89.5 FL (87-102); Mean Platelet Volume 8.4 FL (9.6-12.0); Monocytes # 0.7 10*3/uL (0.11-0.8); Monocytes % 7.3 % (1.7-12.7); Neutrophils % 76.2 % (38.7-73.9); Red Blood Count 2.67 MC/CUMM (3.8-5.5); Red Cell Distribution Width 13.7 % (9.3-17.3); White Blood Count 9.1 T/CUMM (4-12)
[2017-02-23 09:51] LABS: Hemoglobin 7.6 GM/DL (12.0-16.0)
[2017-02-23 09:52] LABS: Platelet Count 335 T/CUMM (130-400)
--- NOTE | 2017-02-23 10:36 | Physician Query Form ---
CLICK EDIT DOCUMENT TO SELECT QUERY ANSWER --> OK --> SIGN Ct Hoang RN [employer] Agent W) [phone] (f) [phone] [email or web address]: Make your selection(s) from the choices in EACH section by typing an "x" and enter comments in the comment section. Please use your independent medical judgment in providing your response. This request does not imply that any particular answer is desired or expected. CLINICAL INDICATORS: (Providers should not edit this section) Based on lab results of creatinine on admission of 1.50 and decreased to 1.20 with a GFR of 66. Pt. treated with IV fluids. Clarify which of the following most accurately represents the patient's renal status: ( ) Acute kidney injury (non-traumatic) ( ) Acute renal failure ( ) Acute renal failure with underlying Chronic Kidney Disease (CKD) - please provide stage below (x ) CKD - please provide stage below ( ) Other, please specify: ( ) Clinically unable to determine Chronic Kidney Disease Stages Source: National Kidney Disease Foundation ( ) Stage I (eGFR > or = 90) ( x) Stage II (eGFR 60 - 89) ( ) Stage III (eGFR 30 - 59) ( ) Stage IV (eGFR 15 - 29) ( ) Stage V (eGFR < 15 or dialysis) COMMENTS: PLEASE ALSO DOCUMENT RESPONSE IN PROGRESS NOTES AND/OR DISCHARGE SUMMARY Use of terms such as suspected, likely, or probable (associated with a specific diagnosis that is being evaluated, monitored, or treated as if it exists) are acceptable and can be restated in the discharge summary if not ruled out. MTDD
--- NOTE | 2017-02-23 10:43 | Infectious Disease Progress ---
Assessment and Plan (1) Bilateral lower extremity edema Status: Chronic Current Visit: No (2) Lymphedema of right arm Status: Chronic Current Visit: No (3) Open wound of both lower extremities with complication Status: Chronic Assessment and plan: Infected venous stasis ulcers to both distal legs. Infection is polymicrobial. Recommendations: 1. Continue meropenem and linezolid 2. Consider topical gentamicin daily to leg ulcerations [to provide double coverage of Pseudomonas infection] 3. Monitor CBC while she is on linezolid 4. 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 She has not had any fever since admission. Complained of left forearm discomfort and swelling related to infiltrated IVs. She is about to get a PICC line. Infectious Disease Exam (PN) - Constitutional Vitals: Temp Pulse Resp BP Pulse Ox 98.5 F 85 16 144/73 95 02/23/17 07:07 02/23/17 07:07 02/23/17 07:30 02/23/17 07:07 02/23/17 07:07 General appearance: no acute distress Exam: General appearance: no acute distress - Eye Eye exam: Present: EOMI. no icterus Pupils: Present: GEOVANNI - ENT ENT exam: no oral exudates - Respiratory Respiratory exam: vesicular BS, no crepitations or wheezes - Cardiovascular Cardiovascular exam: regular rate and rhythm, no murmurs - GI/Abdominal GI/Abdominal exam: normal bowel sounds, soft, non-tender, no organomegaly or mass - Extremities Exam Extremities exam: Severe lymphedema to right upper extremity, edema to both legs which are bandaged - Skin Skin exam: no rash Results - Labs CBC & BMP: 02/23/17 09:21 02/23/17 07:36 Lab Results: I have reviewed the past 24 hour labs Quality Measures - VTE Contraindication to Pharmacological VTE Prophylaxis: Extremities with Hemorrhage Contraindication to Mechanical VTE Prophylaxis: Local Inflammation
--- NOTE | 2017-02-23 11:00 | Post Interventional Procedure ---
Pre-op diagnosis: Cellulitis, no PIV access Post-op diagnosis: same Procedure: PICC LUE Flouroscopy: 0.1 min Radiologist: Eliud Gore Anesthesia: local Specimens: none sent Estimated blood loss: none Complications: none Condition: stable Assessment and Plan - Time spent with patient Time spent with patient: Less than 30 minutes
--- NOTE | 2017-02-23 12:40 | Interventional Radiology Rpt ---
IR PICC line insertion, US guide vascular access Indication: Cellulitis. No peripheral IV access. PICC LINE Description: A formal timeout was performed. Maximum sterile barrier technique was used. Sonographic evaluation of the left upper extremity demonstrates patent and compressible brachial vein. The upper arm was prepped and draped in sterile fashion. 3 cc 1% lidocaine was administered subcutaneously. Under sonographic guidance, a micropuncture needle was advanced into the vein. A captured sonographic image documents the position of the needle. Needle was exchanged over a wire for a peel-away sheath. A dual lumen power PICC, cut to 49 cm, was advanced over the wire until the tip was at the RA-SVC junction. The position of the catheter was confirmed with fluoroscopic guidance and an image stored in PACS. The wire and sheath were removed. Both ports of the PICC were aspirated and flushed with heparinized saline. The device was secured with a StatLock. Fluoroscopy: 16 seconds. Impression: PICC line ready for immediate use. Routine catheter care. PROCEDURE INTERPRETED AT [facility] DEPARTMENT OF RADIOLOGY Final Report Signed by: Eliud Gore M.D.
[2017-02-23] MEDS: DEXTROSE 5% NACL 0.45% 1,000 ML IV SCH (20:29)
[2017-02-24] MEDS: MEROPENEM 2,000 MG in SODIUM CHLORIDE 0.9% 100 ML IV SCH ×3 (02:52→17:55)
[2017-02-24] MEDS: DOCUSATE SODIUM 100 MG CAPSULE PO SCH ×2 (08:45→20:13)
[2017-02-24] MEDS: PANTOPRAZOLE 40 MG TABLET PO SCH (08:45)
[2017-02-24] MEDS: LINEZOLID 600 MG TABLET PO SCH ×2 (08:45→20:13)
[2017-02-24] MEDS: ACETIC ACID 0.25% IRRIGATION 1,000 ML BOTTLE IRRIG SCH ×2 (10:21→20:12)
[2017-02-24] MEDS: SILVER SULFADIAZINE 1% CREAM 400 GM JAR TOP SCH (10:21)
--- NOTE | 2017-02-24 13:05 | Event Note ---
Afebrile vital signs stable. Patient has no complaints. Her dressings were done prior to rounds. There are clean dry and intact. Will evaluate with her next dressing change tomorrow. Check CBC in the a.m.
[2017-02-24] MEDS: ACETAMINOPHEN 325 MG TABLET PO PRN (13:31)
[2017-02-25] MEDS: MEROPENEM 2,000 MG in SODIUM CHLORIDE 0.9% 100 ML IV SCH ×3 (01:19→17:38)
[2017-02-25 03:38] LABS: Basophils % 0.3 % (0.0-0.8); Eosinophils # 0.3 10*3/uL (0.0-0.87); Eosinophils % 4.4 % (0.00-10.9); Hematocrit 22.9 VOL% (35.7-47.0); Immature Granulocytes % 0.5 %; Immature Granulocytes Absolute 0.03 #; Lymphocytes # 1.3 10*3/uL (1.4-4.0); Mean Corpuscular Hemoglobin 28 PG (27-34); Mean Corpuscular Volume 89.5 FL (87-102); Mean Platelet Volume 8.6 FL (9.6-12.0); Monocytes # 0.6 10*3/uL (0.11-0.8); Monocytes % 9.2 % (1.7-12.7); Neutrophils % 64.6 % (38.7-73.9); Platelet Count 308 T/CUMM (130-400); Red Blood Count 2.56 MC/CUMM (3.8-5.5); Red Cell Distribution Width 13.6 % (9.3-17.3); White Blood Count 6.2 T/CUMM (4-12)
[2017-02-25 04:10] LABS: Hemoglobin 7.1 GM/DL (12.0-16.0)
[2017-02-25 07:33] LABS: Hypochromasia 1+; Macrocytosis 1+; Platelet Estimate Adequate; Target Cells Slight
[2017-02-25] MEDS: PANTOPRAZOLE 40 MG TABLET PO SCH (09:25)
[2017-02-25] MEDS: LINEZOLID 600 MG TABLET PO SCH ×2 (09:25→20:09)
[2017-02-25] MEDS: DOCUSATE SODIUM 100 MG CAPSULE PO SCH ×3 (09:25→20:11)
[2017-02-25] MEDS: SILVER SULFADIAZINE 1% CREAM 400 GM JAR TOP SCH (09:26)
[2017-02-25] MEDS: ACETIC ACID 0.25% IRRIGATION 1,000 ML BOTTLE IRRIG SCH ×2 (09:26→20:09)
--- NOTE | 2017-02-25 10:53 | Event Note ---
Afebrile vital signs stable. Wounds examined. No significant changes. Quite a bit of drainage. She has gram-negative rods on culture and is on meropenem and Zyvox. H&H is 7.1 and 22. I recommended transfusion but she wants to wait and recheck it tomorrow. I think that is reasonable as long as her vitals remained stable. We will continue with local wound care.
[2017-02-26] MEDS: MEROPENEM 2,000 MG in SODIUM CHLORIDE 0.9% 100 ML IV SCH ×3 (02:40→17:51)
[2017-02-26 03:24] LABS: Basophils % 0.2 % (0.0-0.8); Eosinophils # 0.2 10*3/uL (0.0-0.87); Eosinophils % 5.7 % (0.00-10.9); Hematocrit 21.4 VOL% (35.7-47.0); Hemoglobin 6.6 GM/DL (12.0-16.0); Immature Granulocytes % 0.5 %; Immature Granulocytes Absolute 0.02 #; Lymphocytes # 1.2 10*3/uL (1.4-4.0); Lymphocytes % 28.7 % (21.3-54.2); Mean Corpuscular HGB Conc 30.8 GM/DL (32-36); Mean Corpuscular Hemoglobin 27 PG (27-34); Mean Corpuscular Volume 88.8 FL (87-102); Mean Platelet Volume 8.2 FL (9.6-12.0); Monocytes # 0.4 10*3/uL (0.11-0.8); Monocytes % 10.5 % (1.7-12.7); Neutrophils # 2.3 10*3/uL (1.4-7.4); Neutrophils % 54.4 % (38.7-73.9); Platelet Count 260 T/CUMM (130-400); Red Blood Count 2.41 MC/CUMM (3.8-5.5); Red Cell Distribution Width 13.4 % (9.3-17.3); White Blood Count 4.2 T/CUMM (4-12)
[2017-02-26] MEDS ORDERED: SODIUM CHLORIDE 0.9% 250 ML IV PRN ×2 (08:32→11:21)
[2017-02-26] MEDS: PANTOPRAZOLE 40 MG TABLET PO SCH (09:50)
[2017-02-26] MEDS: DOCUSATE SODIUM 100 MG CAPSULE PO SCH ×3 (09:50→21:29)
--- NOTE | 2017-02-26 11:21 | Event Note ---
Patient is without complaints. Vital signs are stable she is afebrile. Wounds examined and unchanged. Cultures and sensitivities reviewed. Anabiotic is appropriate blood cultures pending. Repeat H&H with hemoglobin 6.6 this morning. After long discussion, patient agreed to receive 1 unit of packed red blood cells today. Further evaluation per Dr. Jerez who returns in the morning. Repeat labs in the morning. Continue local wound care.
[2017-02-26] MEDS: ACETIC ACID 0.25% IRRIGATION 1,000 ML BOTTLE IRRIG SCH ×2 (17:49→21:29)
[2017-02-26] MEDS: SILVER SULFADIAZINE 1% CREAM 400 GM JAR TOP SCH (17:51)
[2017-02-27] MEDS: MEROPENEM 2,000 MG in SODIUM CHLORIDE 0.9% 100 ML IV SCH ×3 (01:27→18:32)
[2017-02-27 06:49] LABS: Hematocrit 25.9 VOL% (35.7-47.0); Hemoglobin 8.4 GM/DL (12.0-16.0)
[2017-02-27 06:50] LABS: Basophils % 0.5 % (0.0-0.8); Eosinophils # 0.2 10*3/uL (0.0-0.87); Eosinophils % 5.2 % (0.00-10.9); Immature Granulocytes % 0.2 %; Immature Granulocytes Absolute 0.01 #; Lymphocytes # 1.3 10*3/uL (1.4-4.0); Lymphocytes % 28.6 % (21.3-54.2); Mean Corpuscular HGB Conc 32.7 GM/DL (32-36); Mean Corpuscular Hemoglobin 28 PG (27-34); Mean Corpuscular Volume 85.8 FL (87-102); Mean Platelet Volume 8.3 FL (9.6-12.0); Monocytes # 0.5 10*3/uL (0.11-0.8); Monocytes % 10.9 % (1.7-12.7); Neutrophils # 2.4 10*3/uL (1.4-7.4); Neutrophils % 54.6 % (38.7-73.9); Platelet Count 259 T/CUMM (130-400); White Blood Count 4.4 T/CUMM (4-12)
[2017-02-27 06:54] LABS: Red Blood Count 3.03 MC/CUMM (3.8-5.5)
[2017-02-27 06:55] LABS: Hemoglobin 8.5 GM/DL (12.0-16.0)
[2017-02-27 07:24] LABS: Calcium 7.9 MG/DL (8.5-10.1); Magnesium 2.3 MG/DL (1.8-2.4); Osmolality,Calculated 280.3 MOS/KG (273-304); Potassium 4.2 MMOL/L (3.5-5.1)
--- NOTE | 2017-02-27 07:34 | General Surgery Progress Note ---
Assessment and Plan - Time spent with patient Time spent with patient: Less than 30 minutes (1) Open wound of both lower extremities with complication Status: Chronic Assessment and plan: 02/27/2017. Wound care is persisting on the lower extremities. Cultures were positive for just Serratia and I stopped the Zyvox because her hematocrit was down. Hematocrit is down to 21 yesterday and we transfused her 2 units of packed cells. She is a little bit unhappy today because the transfusions took so long and it kept her from getting decent sleep last night. Will start assessing were were added but we need his IV antibiotics for right now in order to get this process under control on her legs. Would like to get some compounded topical medicines to her lower extremities but I doubt we can obtain that at this time. We will attempt to maintain present wound care if we can keep her here maybe throughout the week and see if we can improve the general status at this time of this wound care. The dressings appear to be intact at this point they do not seem to be wet or moist like a good bit of drainage present hopefully we got some edema control is difficult to say. Current Visit: No Subjective Patient reports: Present: feels better, tolerating a regular diet, bowel movement, afebrile, other (Complaining about the unable to sleep due to her recent transfusion.) Exam - Constitutional Vitals: Period Temp Pulse Resp BP Sys/Castro Pulse Ox Last 24 Hr 96.4 F-99.3 F 67-105 18-20 111-144/54-88 90-100 General appearance: mild distress - Head Head exam: Present: normal inspection - ENT ENT exam: Present: normal exam - Neck Neck exam: Present: normal inspection - Respiratory Respiratory exam: Present: rales - Cardiovascular Cardiovascular exam: Present: RRR - GI/Abdominal GI/Abdominal exam: Present: normal bowel sounds, soft - Extremities Exam Extremities exam: Present: edema (Lymphedematous changes of the right upper extremity unchanged. Dressings remain in place on the right lower extremity in the left lower extremity and will have an inspection of these once wound care a good sense of the we can dress him as soon as we taken down) - Back Exam Back exam: Present: normal inspection - Neurological Exam Neurological exam: Present: alert, oriented X3, CN II-XII intact - Skin Skin exam: Present: normal color, warm, dry Results - Labs CBC & BMP: 02/27/17 06:22 02/27/17 06:22 Lab Results: I have reviewed the past 24 hour labs Quality Measures - VTE Contraindication to Pharmacological VTE Prophylaxis: Extremities with Hemorrhage Contraindication to Mechanical VTE Prophylaxis: Local Inflammation
[2017-02-27] MEDS: IRON (CARBONYL)/VIT C/B12/FA TABLET PO SCH (11:05)
[2017-02-27] MEDS: MELOXICAM 7.5 MG TABLET PO SCH (11:05)
[2017-02-27] MEDS: POTASSIUM CHLORIDE 20 MEQ TABLET PO SCH (11:07)
[2017-02-27] MEDS: PANTOPRAZOLE 40 MG TABLET PO SCH (11:07)
[2017-02-27] MEDS: METOPROLOL TARTRATE 50 MG TABLET PO SCH ×2 (11:09→21:55)
[2017-02-27] MEDS: SULFAMETHOX/TRIMETHOPRIM 400-80 MG TABLET PO SCH ×2 (11:10→21:55)
[2017-02-27] MEDS: DOCUSATE SODIUM 100 MG CAPSULE PO SCH ×2 (11:31→21:55)
[2017-02-27] MEDS: amLODIPine 5 MG TABLET PO SCH (11:31)
[2017-02-27] MEDS: FUROSEMIDE 40 MG TABLET PO SCH (11:31)
--- NOTE | 2017-02-27 14:02 | Event Note ---
02/27/2017. Managed to get the wound dressings down and starting the changes. Left leg looks extremely good with good bridges in multiple areas slowly closing this side down. The right is still the larger wound but I think we see in some epithelialization and some islands and bridges beginning to start to form in the side. Will modify the care little bit the use of Aquacel Ag and to see if we can get some results going there. A collagen dressing would be better but not sure we could get a big enough piece.
[2017-02-27] MEDS: ACETIC ACID 0.25% IRRIGATION 1,000 ML BOTTLE IRRIG SCH ×2 (14:27→21:55)
[2017-02-27] MEDS: SILVER SULFADIAZINE 1% CREAM 400 GM JAR TOP SCH (14:27)
[2017-02-27] MEDS: ACETAMINOPHEN 325 MG TABLET PO PRN (15:58)
[2017-02-28] MEDS: MEROPENEM 2,000 MG in SODIUM CHLORIDE 0.9% 100 ML IV SCH ×2 (01:44→09:06)
[2017-02-28 03:35] LABS: Basophils % 0.8 % (0.0-0.8); Eosinophils # 0.3 10*3/uL (0.0-0.87); Hematocrit 28.7 VOL% (35.7-47.0); Immature Granulocytes % 0.3 %; Immature Granulocytes Absolute 0.01 #; Lymphocytes # 1.2 10*3/uL (1.4-4.0); Lymphocytes % 31.9 % (21.3-54.2); Mean Corpuscular HGB Conc 31.4 GM/DL (32-36); Mean Corpuscular Hemoglobin 28 PG (27-34); Mean Platelet Volume 8.3 FL (9.6-12.0); Monocytes # 0.4 10*3/uL (0.11-0.8); Monocytes % 11.2 % (1.7-12.7); Neutrophils # 1.9 10*3/uL (1.4-7.4); Neutrophils % 48.8 % (38.7-73.9); Platelet Count 208 T/CUMM (130-400); Red Blood Count 3.26 MC/CUMM (3.8-5.5); White Blood Count 3.8 T/CUMM (4-12)
[2017-02-28 04:03] LABS: Calcium 7.9 MG/DL (8.5-10.1); Magnesium 2.3 MG/DL (1.8-2.4); Osmolality,Calculated 283.1 MOS/KG (273-304); Potassium 4.4 MMOL/L (3.5-5.1)
[2017-02-28] MEDS: SILVER SULFADIAZINE 1% CREAM 400 GM JAR TOP SCH (08:05)
[2017-02-28] MEDS: ACETIC ACID 0.25% IRRIGATION 1,000 ML BOTTLE IRRIG SCH ×2 (08:05→20:46)
[2017-02-28] MEDS: MELOXICAM 7.5 MG TABLET PO SCH (08:58)
[2017-02-28] MEDS: PANTOPRAZOLE 40 MG TABLET PO SCH (08:58)
[2017-02-28] MEDS: SULFAMETHOX/TRIMETHOPRIM 400-80 MG TABLET PO SCH (08:58)
[2017-02-28] MEDS: amLODIPine 5 MG TABLET PO SCH (08:58)
[2017-02-28] MEDS: IRON (CARBONYL)/VIT C/B12/FA TABLET PO SCH (09:06)
[2017-02-28] MEDS: METOPROLOL TARTRATE 50 MG TABLET PO SCH ×2 (09:06→20:45)
[2017-02-28] MEDS: DOCUSATE SODIUM 100 MG CAPSULE PO SCH ×2 (09:06→20:45)
[2017-02-28] MEDS: POTASSIUM CHLORIDE 20 MEQ TABLET PO SCH (09:06)
[2017-02-28] MEDS: FUROSEMIDE 40 MG TABLET PO SCH (09:06)
--- NOTE | 2017-02-28 09:23 | General Surgery Progress Note ---
Assessment and Plan - Time spent with patient Time spent with patient: Less than 30 minutes (1) Cellulitis of both lower extremities Status: Acute Assessment and plan: 02/28/2017 Cellulitis bilateral lower extremities, improving. Her antibiotics have been adjusted, and we are currently working on discharge planning. I believe she would be able to participate with wound care, and since the left leg is markedly improved, we may be able to switch to every other day dressings to this leg and recruit her involvement with daily care to the right leg. This should alleviate the need for the drop attacks, which has been a source complaint for the patient, and would also enhance our efforts at finding the chronic Pseudomonas infection. She would be able to switch to p.o. antibiotics ; her choices would include Bactrim versus Cipro. Case management is working with us and will arrange with home health based on what our options for wound care will be. Looking at discharge or Sunday. 02/23/2017. Bilateral lower extremity cellulitis stable. Appreciate Dr. Her; we will continue with IV antibiotics through the weekend and reassess next week her local care has been started, and she is tolerating this fairly well. She does need elevation and compression, and will see how well she is able to be compliant with this as in-patient. 02/22/17 We will plan to admit for IV antibiotics and wound care. Compliance has been an issue, and we now have increased drainage, most likely due to infection. Cultures have been done and we appreciate Dr Chan's help. Certainly the legs have improved somewhat from her past visit but if we can treat the current infection we may see them continue to healing. Current Visit: No (2) Hypertension Status: Acute Assessment and plan: 02/22/17-We will plan to continue her antihypertensives and watch closely; should she need medical management we will ask for a hospitalist consult. Current Visit: No (3) Anemia of chronic disease Status: Chronic Assessment and plan: 02/23/2017. Anemia of chronic disease. H&H is stable. No active bleeding from her wounds; we will continue to watch with serial labs. 02/22/17 Anemia is stable at this time but her legs actively bleed when we change the dressings. Currently she is asymptomatic. I believe an anemia workup was done on her last visit; we will check the records. We will monitor legs and plan transfusion as indicated. Current Visit: No (4) Chronic renal insufficiency Status: Acute Assessment and plan: 02/23/2017. Chronic renal insufficiency, stable her creatinine is 1.[address] Chan to suggest her antibiotics, and we will substitute Zyvox for vancomycin. Continue to watch with serial BMPs. She has not had significant renal failure in the past; we will also monitor her blood pressure 02/22/17 Chronic renal insufficiency-this too is slightly worse than on her last admission. Her chronic infection is likely contributing, and I have explained to her that once we get her legs healed, she may see her kidney function improve as well. We will hydrate gently and watch her labs, getting a nephrology consult if needed. Appreciate Dr Chan's choice of antibiotics, and we agree with avoiding Vancomycin if possible. 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 This is stable. She has a gauntlet and sleeve she wears at home, and we consulted OT on her last visit with little involvement or participation from the patient. We could look at MLD and/or wrappings as an option if she were willing but she seems asymptomatic, there is nothing to suggest lymphangitis, and I doubt she would be compliant. We will follow this along unless there are changes. Current Visit: No Subjective Patient reports: Present: feels better, pain is less, tolerating a regular diet. Absent: shortness of breath Exam - Constitutional Vitals: Period Temp Pulse Resp BP Sys/Castro Pulse Ox Last 24 Hr 96.9 F-98.1 F 56-76 15-20 118-145/54-84 95-100 General appearance: no acute distress, morbidly obese - Respiratory Respiratory exam: Present: clear to auscultation bilaterally - Cardiovascular Cardiovascular exam: Present: RRR - Extremities Exam Extremities exam: Present: other (Bilateral lower extremity dressings are in place; there is no strikethrough drainage. Wounds are not examined at this visit.) Results - Labs CBC & BMP: 02/28/17 02:52 02/28/17 02:52 Lab Results: I have reviewed the past 24 hour labs (Labs are stable today. H&H is 03/22.7; her wound cultures have been addressed.) Quality Measures - VTE Contraindication to Pharmacological VTE Prophylaxis: Extremities with Hemorrhage Contraindication to Mechanical VTE Prophylaxis: Local Inflammation
--- NOTE | 2017-02-28 11:39 | Physician Query Form ---
CLICK EDIT DOCUMENT TO SELECT QUERY ANSWER --> OK --> SIGN Ct Hoang RN Clinical Vp Rheumatology W) [phone] (f) [phone] [email or web address]: Make your selection(s) from the choices in EACH section by typing an "x" and enter comments in the comment section. Please use your independent medical judgment in providing your response. This request does not imply that any particular answer is desired or expected. CLINICAL INDICATORS: (Providers should not edit this section) Based on documentation of "anemia" and "her legs actively bleed when we change the dressings", H/H of 01/14 on admission and dropped to 12/13. Pt. transfused with 2 units PRBC's. H/H up to 03/22 after blood transfusions. Based on the above, could you clarify which of the following conditions you are evaluating, treating, and/or monitoring? ( ) Blood loss anemia ( ) acute ( ) chronic (x ) acute on chronic ( ) Acute blood loss anemia on baseline chronic anemia ( ) Acute blood loss anemia as a complication of a procedure ( ) Iron deficiency anemia not associated with blood loss ( ) Dilutional anemia due to IV fluids ( ) Anemia due to chemotherapy ( ) Anemia due to neoplastic disease ( ) Anemia due to chronic kidney disease ( ) Pernicious anemia ( ) Aplastic anemia ( ) Hemolytic anemia ( ) immune ( ) non-immune - please specify cause: ( ) Anemia due to other condition, please specify: ( ) Clinically unable to determine COMMENTS: PLEASE ALSO DOCUMENT RESPONSE IN PROGRESS NOTES AND/OR DISCHARGE SUMMARY Use of terms such as suspected, likely, or probable (associated with a specific diagnosis that is being evaluated, monitored, or treated as if it exists) are acceptable and can be restated in the discharge summary if not ruled out. MTDD
--- NOTE | 2017-02-28 12:30 | Infectious Disease Progress ---
Assessment and Plan (1) Bilateral lower extremity edema Status: Chronic Current Visit: No (2) Lymphedema of right arm Status: Chronic Current Visit: No (3) Open wound of both lower extremities with complication Status: Chronic Assessment and plan: Infected venous stasis ulcers to both distal legs. Infection is polymicrobial. Recommendations: Based on cultures, will de-escalate from meropenem to ciprofloxacin. Stop bactrim. Current Visit: No (4) Stasis dermatitis with venous ulcer of lower extremity due to chronic peripheral venous hypertension Status: Chronic Current Visit: No (5) Chronic renal insufficiency Status: Acute Current Visit: Yes Infectious Disease - PN: Subj Interval history: Pt doing well, tolerating antibiotics without N, V, D. No fever. Says legs are getting better. Infectious Disease Exam (PN) - Constitutional Vitals: Temp Pulse Resp BP Pulse Ox 98.5 F 55 L 16 114/61 95 02/28/17 11:45 02/28/17 11:45 02/28/17 11:45 02/28/17 11:45 02/28/17 11:45 General appearance: no acute distress, morbidly obese Exam: General appearance: no acute distress - Eye Eye exam: Present: EOMI. no icterus Pupils: Present: GEOVANNI - ENT ENT exam: no oral exudates - Respiratory Respiratory exam: vesicular BS, no crepitations or wheezes - Cardiovascular Cardiovascular exam: regular rate and rhythm, no murmurs - GI/Abdominal GI/Abdominal exam: normal bowel sounds, soft, non-tender, no organomegaly or mass - Extremities Exam Extremities exam: Severe lymphedema to right upper extremity, edema to both legs which are bandaged - Skin Skin exam: no rash Results - Labs CBC & BMP: 02/28/17 02:52 02/28/17 02:52 Lab Results: I have reviewed the past 24 hour labs (Serratia and Acinetobacter from wound culture) Quality Measures - VTE Contraindication to Pharmacological VTE Prophylaxis: Extremities with Hemorrhage Contraindication to Mechanical VTE Prophylaxis: Local Inflammation
[2017-02-28] MEDS: CIPROFLOXACIN 500 MG TABLET PO SCH (20:45)
[2017-03-01] MEDS: ACETIC ACID 0.25% IRRIGATION 1,000 ML BOTTLE IRRIG SCH ×2 (08:21→23:02)
[2017-03-01] MEDS: DOCUSATE SODIUM 100 MG CAPSULE PO SCH ×2 (08:22→23:02)
[2017-03-01] MEDS: SILVER SULFADIAZINE 1% CREAM 400 GM JAR TOP SCH (08:22)
[2017-03-01] MEDS: FUROSEMIDE 40 MG TABLET PO SCH (08:22)
[2017-03-01] MEDS: amLODIPine 5 MG TABLET PO SCH (08:23)
[2017-03-01] MEDS: METOPROLOL TARTRATE 50 MG TABLET PO SCH ×2 (08:23→23:03)
[2017-03-01] MEDS: IRON (CARBONYL)/VIT C/B12/FA TABLET PO SCH (08:23)
[2017-03-01] MEDS: POTASSIUM CHLORIDE 20 MEQ TABLET PO SCH (08:23)
[2017-03-01] MEDS: MELOXICAM 7.5 MG TABLET PO SCH (08:23)
[2017-03-01] MEDS: CIPROFLOXACIN 500 MG TABLET PO SCH ×2 (08:23→23:02)
[2017-03-01] MEDS: PANTOPRAZOLE 40 MG TABLET PO SCH (08:23)
--- NOTE | 2017-03-01 11:17 | Discharge Summary ---
Hospital Course - Hospital Course Hospital Course: Discharge summary: Discharge diagnoses: 1. Infected ulcerations of the right lower extremity. 2. Infected ulcerations of the left lower extremity. 3. Chronic venous stasis disease with ulceration. 4. Mild underlying peripheral arterial disease. 5. History of breast cancer with lymphedema of the right upper extremity 6. Mild hypertension 7. Anemia chronic Procedure: None Planting Material Remover Dr. Chan Surgeon Dr. Jerez Freight Car Cleaner Rosalba Romero, CURLING MACHINE OPERATOR ACNP Brief summary: 76-year-old -[place] female who is a pretty independent determined lady that has been manipulating her wound care for some time. We had oriented get things under control she would not go to a swing bed but decided to go home. We have been dealing with home health and has had multiple phone calls about her over time. At this time we could not really deal with her effectively over the phone we cannot get a good picture what was going on between home health and her complaints were not quite sure we still do not anything at this time. At this point we finally convinced her to come in the office and we admitted her because we will continue to be concerned about infection in these wound beds. She came in had a culture which grew out Serratia marcescens. Because of this we had her on antibiotics and got a Dr. Judd back in the look at her and see if we can keep things under good control at this time. She did have an anemia that is chronic in nature and her crit did get down to 23 at which time we did transfuse her and her last hematocrit was 29. We have known about this and have not been able to determine any clear etiology for this process this time other than the wounds that are raw and weep at times. We have been undergoing wound care since she has been here to try to get this process under control. We have been pleased with the progress that we made with the right lower extremity with a great deal of epithelialization on this wound bed. The anterior portion is almost completely closed we still have a posterior part that remains a little bit open and rale at this time. The right lower extremity though continues to be a little bit of a problem with slower healing occurring on that side at this time. Wound bed has some granulating tissue with some slough over it that is tender enough to her that is difficult for us to get much of a debridement and any one time on her at this time. We managed to keep the wound beds and clean and clear at this point. The right wound has some epithelialization at the edges as well as an island on the medial aspect of it. It remains a larger wound bed to deal with at this time. At this point we will plan to let her go home since we have done as much as we can do here at this time. We know that she is got a manipulator wound care again at home which could be difficult to deal with and hopefully home health can maintains some form of decent care to these areas until we can improve her general status over all. At this point with, with a strategy to use with home health and this with us to try to get some puricall to the wounds on the left lower extremity and wrapped that up with cast padding Covan to leave every other day. We could consider going to a Sunday dressing change if she can keep him up in over the weekend. We want to keep your call in place on this if we can get this one side leg healed up completely so that we can concentrate more on the right. The right lower extremity though what we will do is do daily wound care with this irrigating and washing it putting Aquacel Ag onto the wound bed along with Silvadene onto ABD pads and wrapped her up with cast padding and ACEs. On the right will let her changes herself and changes every day in order to keep a good clean base in this area. Our hope is that we can heal up the left side completely and then switched. Call eventually over to the right for additional healing at that area. We will try to follow her up in 2 weeks if she will come to the office and see if we can get an idea how well things are progressing at that time. - Time spent with patient Time with patient DS: Less than 30 minutes Diagnosis - Discharge Diagnosis (1) Open wound of both lower extremities with complication Status: Chronic (2) Anemia of chronic disease Status: Chronic (3) Lymphedema of right arm Status: Chronic (4) Stasis dermatitis with venous ulcer of lower extremity due to chronic peripheral venous hypertension Status: Chronic Specialty Discharge - Follow Up or Referrals Follow up with: Wisam Jerez MD [Physician] - 2 Weeks Discharge Plan - Discharge Data Disposition: Home Health Service Condition at Discharge: Stable Discharge Diet: advance to your usual diet Activity: increase activity as tolerated, no prolonged standing, other (Elevate lower extremities as much as possible) Hygiene: other (Shower as needed but try to keep the dressing on the left clean and dry between dressing changes.) Weight Bearing at Discharge: full weight bearing Driving: not until seen by doctor Contact your physician if you experience:: fever over 101, Redness or swelling, Bleeding, pain uncontrolled by pain medications Wound / Dressing Care Instructions: Wound care orders are to follow the orders as revised and written on the chart itself. Be sure to send a copy of these wound care orders to my office and to home health and get the patient a copy to take home. - Discharge Medications New Silver Sulfadiazine 1% Cream [Silvadene] 1 applic TOP DAILY #0 applic Ciprofloxacin Tab [Cipro Tab] 500 mg PO Q12HR #30 tablet Hydrocodone/Acetaminophen [[place] 10-325 Tablet] 1 each PO Q8H PRN #30 tablet PRN Reason: Pain Mild To Moderate (1-7) Continue Furosemide Tab [Lasix Tab] 40 mg PO DAILY Potassium Chloride [Klor-Con M20] 20 meq PO DAILY Meloxicam [Mobic] 15 mg PO DAILY Iron,Carbonyl/Ascorbic Acid [Icar-C Tablet] 1 tablet PO DAILY Acetaminophen Tab [Tylenol Tab] 1,000 mg PO Q8HR tablet HYDROcodone/ACETAMIN 10-325 [[place] 10-325] 1 tablet PO Q4H PRN #60 tablet PRN Reason: Pain Moderate (4-7) Ibuprofen Tab [Motrin Tab] 200 mg PO TID #60 tablet amLODIPine [Norvasc] 5 mg PO DAILY #60 tablet Metoprolol Tartrate 50 mg PO BID - Follow Up or Referral - Forms/Instructions Exam - Constitutional Vitals: Period Temp Pulse Resp BP Sys/Castro Pulse Ox Last 24 Hr 96.7 F-99.0 F 55-68 16-20 110-137/55-74 95-100 General appearance: mild distress - Head Head exam: Present: normal inspection - ENT ENT exam: Present: normal exam - Neck Neck exam: Present: normal inspection - Respiratory Respiratory exam: Present: clear to auscultation bilaterally, rales - Cardiovascular Cardiovascular exam: Present: regular rate and rhythm - GI/Abdominal GI/Abdominal exam: Present: hypoactive bowel sounds (Ulcers of the left leg continues to look good clean little bit of slough on the posterior aspect of the calf with good epithelialization on the anterior portion of it. Ulcers of the right leg are improved there is epithelialization around the edges of small island in the anterior medial portion. Otherwise his wounds look clean at this time but can require additional care due to her size.) - Extremities Exam Extremities exam: Present: other (Left lower extremity wounds are continuing to look better with improved epithelialization involving most of the anterior portion leaving the posterior part still open. Little bit of sloughing material but difficult to remove due to tenderness. Right lower extremity is still large but epithelialization appears in the edges with single Jose on the anterior portion of the wound bed. His remains tender but of fairly clean with no evidence of any progressive process.) - Back Exam Back exam: Present: normal inspection - Neurological Exam Neurological exam: Present: alert, oriented X3, CN II-XII intact - Psychiatric Psychiatric exam: Present: normal affect, normal mood - Skin Skin exam: Present: normal color, warm, dry DS: Provider Date of admission: 02/22/17 10:54 Primary care physician: Radu Bush Attending physician on admission: Wisam Jerez MD Consults: 02/22/17 11:01 Consult to Case Mgmt/Social Srvs [CONS] Routine Reason for Case Mgmt/Social Srvs: Rehab Other Consult Comment: Home situation Consult to Physical Therapy [CONS] Routine Reason for Physical Therapy: Weakness Consult to Physician [CONS] Routine Comment: See scanned C&S report-BLE wounds with infection Consulting Provider: Peggy Haines Consulting Provider Notified: Yes When should Consulting Provider be notified: Now Person Notified: jaime kraus Date Notified: 02/22/17 Consult to Wound Care - [place] [CONS] Routine Reason for Wound Care: Wound Care Management 02/22/17 11:10 Consult to Pharmacy [CONS] Routine Reason for Pharmacy Consult: Dose/Manage Vancomycin 02/27/17 07:34 Consult to Case Mgmt/Social Srvs [CONS] Routine Reason for Case Mgmt/Social Srvs: Discharge Planning Home Health Equipment Other Consult Comment: Look at home situation and will need wound care Discharging clinician: Wisam Jerez MD Expected date of discharge: 03/01/17
[2017-03-01 15:44] VITALS: BP 114/54
== END 2017-03-01 21:20 | disposition home health service (06) | DRG 300 ==
LOC: N.3E 11:32
PROVIDERS: ADMIT Specialist; ATTEND Specialist